=== PATIENT | female | born 1970 | race Caucasian/White ===

== ENCOUNTER 2018-03-23 17:56 | Emergency (ER) | payer OTHER ==
[2018-03-23 19:43] LABS: #Basophils 0.1 thou/uL (0.0-0.2); #Eosinphils 0.3 thou/uL (0.0-0.7); #Lymphocytes 2.6 thou/uL (1.20-3.40); #Monocytes 0.6 thou/uL (0.11-0.59); #Neutrophils 5.4 thou/uL (1.40-6.50); %Basophils 0.7 % (0.0-1.0); %Eosinophils 3.6 % (0.0-10.0); %Lymphocytes 28.8 % (21.0-51.0); %Monocytes 6.7 % (0.0-10.0); %Neutrophils 60.2 % (42.0-75.0); Hemoglobin 11.2 g/dL (12.0-16.0); Mean Corpuscular HGB CONC 33.2 g/dL (32.0-36.0); Mean Corpuscular Hemoglobin 29.8 pg (27.0-31.0); Mean Corpuscular Volume 89.8 fL (78.0-98.0); Mean Platelet Volume 9.6 fL (7.4-10.4); Platelet Count 176 thou/uL (130-400); RBC Distribution Width 11.1 % (11.5-14.5); Red Blood Cell (RBC) Count 3.77 mill/uL (4.20-5.40)
[2018-03-23 20:05] LABS: ALT (SGPT) 17 U/L (8-55); AST (SGOT) 18 U/L (5-34); Albumin 3.6 g/dL (3.5-5.0); Alkaline Phosphatase 88 U/L (40-150); Anion Gap 9 mmol/L (10-20); BUN (Urea Nitrogen) 20 mg/dL (7.0-18.7); Bilirubin, Total 0.4 mg/dL (0.2-1.2); CK (CPK) 99 U/L (29-168); Calc. Creatinine Clearance 0 mL/min (70-130); Calcium 8.8 mg/dL (7.8-10.44); Carbon Dioxide 26 mmol/L (22-29); Chloride 106 mmol/L (98-107); Estimated GFR-MDRD 59; Glucose 108 mg/dL (70-105); Potassium 3.8 mmol/L (3.5-5.1); Protein, Total 6.6 g/dL (6.0-8.3); Sodium 137 mmol/L (136-145)
[2018-03-23 20:10] LABS: CKMB 1.8 ng/mL (0-6.6); Troponin I Less than 0.010 ng/mL (< 0.028)
[2018-03-23] MEDS ORDERED: Ondansetron HCl/PF 4 MG/2 ML Vial ONE (21:08)
--- NOTE | 2018-03-23 21:11 | ULT ---
ULTRASOUND WITH DOPPLER DUPLEX VENOUS LOWER EXTREMITY RIGHT: 03/23/18, 8:41 p.m. HISTORY: 47-year-old female with right lower extremity pain, edema, and erythema. TECHNIQUE: Color flow Doppler, spectral waveform analysis of pulsed Doppler, and wilson-scale imaging with nanda saundra and augmentation, were used to evaluate the right common femoral, femoral, popliteal, posterior tibial, and superficial femoral, veins; and the proximal portions of the profunda femoral and greater saphenous, veins. FINDINGS: There is normal compressibility, demonstration of blood flow by color Doppler and pulsed Doppler, and response to augmentation, in all interrogated veins. There is edema in the soft tissues of the right calf. There are enlarged lymph nodes in the right groin. IMPRESSION: 1. No deep vein thrombosis in the right lower extremity. 2. Soft tissue edema of the right leg. 3. Right groin lymphadenopathy. zana wills POS: JAYDA
[2018-03-23] MEDS ORDERED: Metoprolol Tartrate 25 MG TAB ONE (21:51)
== END 2018-03-23 23:09 | disposition home or self-care (01) ==
LOC: ERS 17:56
DX: M79.604 Pain in right leg (principal); I25.2 Old myocardial infarction; E11.9 Type 2 diabetes mellitus without complications; E78.5 Hyperlipidemia, unspecified; I10 Essential (primary) hypertension; Z86.73 Personal history of transient ischemic attack (TIA), and cerebral infarction without residual deficits; F41.9 Anxiety disorder, unspecified; F31.9 Bipolar disorder, unspecified; Z79.899 Other long term (current) drug therapy; Z79.82 Long term (current) use of aspirin
CPT/HCPCS: 36415; 80053; 82553; 84484; 85025; 94760; J2405

== ENCOUNTER 2018-04-04 16:39 | Inpatient (IN) | payer OTHER ==
[2018-04-04] MEDS ORDERED: Dextrose 5% in Water 1,000 ML IV PRN (19:10)
[2018-04-04] MEDS ORDERED: Insulin Regular 300 UNITS/3 ML VIAL SC PRN ×2 (19:10)
[2018-04-04] MEDS ORDERED: Dextrose 50% Abboject 50 ML SYRINGE SLOW IVP PRN (19:10)
[2018-04-04] MEDS ORDERED: hydrALAZINE 20 MG/ML VIAL SLOW IVP PRN (19:10)
[2018-04-04] MEDS ORDERED: Senokot 8.6 MG TAB PO PRN (19:16)
[2018-04-04] MEDS ORDERED: Acetaminophen 325 MG TAB PO PRN (19:16)
--- NOTE | 2018-04-04 19:26 | HP ---
DATE OF ADMISSION: 04/04/2018 PRIMARY CARE PHYSICIAN: Dr. Zarate. CHIEF COMPLAINT: Right foot pain and swelling of 1 week duration. HISTORY OF PRESENT ILLNESS: Patient is a 47-year-old white female with diabetes mellitus type 2, hyp ertension, diabetic neuropathy and left foot diabetic ulcer, status post amputation of the second toe presented to the emergency room with above complaints. She initially presented to [facility] and was transferred to this facility for hospital admission. Approximately 10 days ago, patient had blunt injury to the great toe of the right foot. Since then s he noticed some swelling and pain. Her symptoms got worse over the last week. She also noticed incr eased drainage from the great toe. A second toe was also swollen and painful. No fever or chills re ported. The drainage was serosanguineous and very small amount. The pain was moderate to severe in intensity, aggravated by movement and walking. In the [facility], her vital signs showed temperature 97.8, respirations 16, pulse o f 65 with a blood pressure 159/69 with O2 saturation 99% on room air. She received vancomycin, cefep eric, morphine and blood cultures were drawn. X-ray of the right foot showed changes consistent with osteomyelitis in the distal right second toe without any fractures or dislocation. PAST MEDICAL HISTORY: 1. Diabetes mellitus type 2. 2. Hypertension. 3. Diabetic neuropathy. 4. History of diabetic foot ulcer, status post amputation of the second toe of the left foot. 5. Coronary artery disease, status post stent placement, currently on aspirin and Plavix. 6. History of cerebrovascular without significant residual deficit. 7. Dyslipidemia. PAST SURGICAL HISTORY: 1. Coronary stent placement in 2002. 2. Gastric bypass in 2004. 3. Laparoscopic cholecystectomy. 4. Left second toe amputation in 2016. 5. x2. 6. Retinal detachment repair. ALLERGIES: PENICILLIN and PHENERGAN. CURRENT HOME MEDICATIONS: Patient does not remember any of her home medications. She takes aspirin and Plavix every day. She is currently off insulin per patient report. She is unable to recall any other medication. SOCIAL HISTORY: She currently lives at home with her family. No current use of tobacco, alcohol or drug use. FAMILY HISTORY: Positive for premature coronary artery disease. Hypertension and diabetes runs in h er family. REVIEW OF SYSTEMS: The following complete review of systems was negative, unless otherwise mentioned in the HPI or below: Constitutional: Weight loss or gain, ability to conduct usual activities. Skin: Rash, itching. Eyes: Double vision, pain. ENT/Mouth: Nose bleeding, neck stiffness, pain, tenderness. Cardiovascular: Palpitations, dyspnea on exertion, orthopnea. Respiratory: Shortness of breath, wheezing, cough, hemoptysis, fever or night sweats. Gastrointestinal: Poor appetite, abdominal pain, heartburn, nausea, vomiting, constipation, or diarr hea. Genitourinary: Urgency, frequency, dysuria, nocturia. Musculoskeletal: Pain, swelling. Neurologic/Psychiatric: Anxiety, depression. Allergy/Immunologic: Skin rash, bleeding tendency. PHYSICAL EXAMINATION: VITAL SIGNS: As discussed above. GENERAL: A 47-year-old female in mild distress due to pain in the right foot. HEENT: Atraumatic, normocephalic. Sclerae are anicteric. Moist mucous membrane, no oral lesion. NECK: Supple, no JVD appreciated. No carotid bruit. LUNGS: Clear to auscultation bilaterally. HEART: S1 and S2 present. Regular rate and rhythm. No murmur, rubs, or gallops appreciated. ABDOMEN: Soft, bowel sounds present. EXTREMITIES: There is significant swelling of the first and second toe of the right foot. There wer e some chronic ulcerative changes seen mainly on the great toe of the right foot. There was minimal serosanguineous drainage noted. There was tenderness on palpation. There was also significant eryth kosta surrounding the ulceration. NEUROLOGIC: Grossly nonfocal, moves all four extremities. PSYCHIATRIC: Alert, awake, oriented x3. SKIN: Warm and dry other findings as discussed above. PERIPHERAL VASCULAR: Radial pulses palpable bilaterally. LYMPH NODES: No palpable lymph nodes in the neck, or groin. LABORATORY DATA AND IMAGING DATA: 1. CBC showed WBC 7.9 with hemoglobin 10.4, hematocrit 31.8, platelet of 250. Chemistries showed so dium 137, potassium 4.2, chloride 104, bicarbonate 24, BUN 14, creatinine 0.9, lactic acid was 1.2. 2. ESR was 56. 3. X-ray of the right foot by my review as discussed above. 4. Telemetry monitoring by my review showed sinus rhythm. IMPRESSION: 1. Right foot infected diabetic ulcer with cellulitis, rule out osteomyelitis. 2. Diabetes mellitus type 2. 3. Hypertension. 4. Coronary artery disease, status post stent placement. 5. Diabetic neuropathy. 6. History of cerebrovascular accident. 7. Hyperlipidemia 8. PENICILLIN allergy. PLAN: 1. The patient will be monitored on the medical floor. General Surgery and Infectious Disease will be consulted. We will continue vancomycin and cefepime. We will start on insulin sliding scale. We will confirm her home medications. We will keep her n.p.o. past midnight for possible surgical inte rvention. Blood cultures have been sent. We will continue aspirin and Plavix for now. 2. Plan of care was discussed with the patient in detail. She stated understanding. The patient will require 2-3 days for stabilization.
[2018-04-04 20:04] VITALS: BMI 28.6
[2018-04-04] MEDS ORDERED: Heparin 5,000 UNITS/ML VIAL SC SCH (21:00)
[2018-04-04] MEDS: Sodium Chloride 0.9% 1,000 ML IV SCH (21:09)
[2018-04-04] MEDS: Docusate 100 MG CAP PO SCH (21:09)
[2018-04-04] MEDS: Vancomycin HCl 1 GM in Premix Bag 1 BAG IVPB SCH (23:08)
[2018-04-05 04:38] LABS: #Eosinphils 0.4 thou/uL (0.0-0.7); #Lymphocytes 1.6 thou/uL (1.20-3.40); #Monocytes 0.5 thou/uL (0.11-0.59); #Neutrophils 4.9 thou/uL (1.40-6.50); %Basophils 0.6 % (0.0-1.0); %Eosinophils 5.1 % (0.0-10.0); %Monocytes 6.2 % (0.0-10.0); Hemoglobin 9.6 g/dL (12.0-16.0); Mean Corpuscular HGB CONC 34.1 g/dL (32.0-36.0); Mean Corpuscular Hemoglobin 30.5 pg (27.0-31.0); Mean Corpuscular Volume 89.5 fL (78.0-98.0); Mean Platelet Volume 9.7 fL (7.4-10.4); Platelet Count 255 thou/uL (130-400); RBC Distribution Width 10.7 % (11.5-14.5); Red Blood Cell (RBC) Count 3.15 mill/uL (4.20-5.40); White Blood Cell (WBC) Count 7.4 thou/uL (4.8-10.8)
[2018-04-05 05:00] LABS: Anion Gap 7 mmol/L (10-20); BUN (Urea Nitrogen) 11 mg/dL (7.0-18.7); Calc. Creatinine Clearance 103 mL/min (70-130); Calcium 8.4 mg/dL (7.8-10.44); Carbon Dioxide 29 mmol/L (22-29); Chloride 104 mmol/L (98-107); Estimated GFR-MDRD 78; Glucose 135 mg/dL (70-105); Potassium 4.4 mmol/L (3.5-5.1); Sodium 136 mmol/L (136-145)
[2018-04-05] MEDS ORDERED: Gadobenate Dimeglumine 529 MG/1 ML (20ML VIAL) ONE (08:25)
[2018-04-05] MEDS: Aspirin 81 mg Enteric Coated Tablet PO SCH ×2 (08:34→08:51)
[2018-04-05] MEDS: Clopidogrel Bisulfate 75 MG TAB PO SCH (08:34)
[2018-04-05] MEDS: Docusate 100 MG CAP PO SCH ×2 (08:34→20:04)
[2018-04-05] MEDS: Vancomycin HCl 1 GM in Premix Bag 1 BAG IVPB SCH ×2 (08:35→21:19)
[2018-04-05] MEDS: Amlodipine 5 MG TAB PO SCH ×2 (08:37→20:04)
[2018-04-05] MEDS: Lisinopril 10 MG TAB PO SCH ×2 (08:37→20:04)
[2018-04-05] MEDS: Metoprolol Tartrate 25 MG TAB PO SCH ×2 (08:37→20:04)
[2018-04-05] MEDS: busPIRone HCl 10 MG TAB PO SCH (08:37)
[2018-04-05] MEDS ORDERED: PAROXETINE HCL 37.5 MG PO SCH ×2 (09:00)
--- NOTE | 2018-04-05 14:09 | MRI ---
MRI RIGHT LOWER EXTREMITY WITH AND WITHOUT CONTRAST: Date: 04/05/18 HISTORY: Evaluate for osteomyelitis. COMPARISON: Radiograph from 04/04/18. FINDINGS: Bones: On the T1-weighted image sequence, there is loss of normal marrow signal in distal phalanx of the gre at toe indicative of active osteomyelitis. There is associated reactive edema in distal phalanx. Midd le phalanx marrow signal is normal. No other abnormal areas of loss of T1 signal. Tendons: No significant infectious tenosynovitis. Soft Tissues: No abscess. There is a sinus tract in the skin plantar surface to the distal phalanx tuft great toe. IMPRESSION: Osteomyelitis distal phalanx great toe. POS: ANGE
[2018-04-05] MEDS: Sodium Chloride 0.9% 1,000 ML IV SCH (16:14)
[2018-04-05 17:33] LABS: HIV (1/2) Antibody/Antigen Non-Reactive (NonReactive); HIV 1/2 INDEX 0.06 S/CO (<1.00); Hep C IgG Ab Non-Reactive (NonReactive); Hep C Index 0.12 S/CO (0-0.79)
--- NOTE | 2018-04-05 17:42 | HP ---
HISTORY OF PRESENT ILLNESS: Ileana De Leon is a 47-year-old female, who has had previous amputations of her left second toe distal to the proximal phalanx. She presents now with diet-controlled diabet es, admitted on the medical service. White count 7, hemoglobin 9.6, Accu-Cheks 124-247. She has com plaints of her right great toe. She has some distal plantar ulceration with eschar. She had plain x -rays that revealed a questionable lucency in the second toe, but chronic changes in the right great toe. After seeing her, she underwent an MRI demonstrating osteomyelitis of the distal great toe phal anx. She has swelling, induration, cellulitis of the right great toe. She has palpable posterior ti bial pulses. There is no history of tobacco use. I have recommend amputation of the right great toe through the proximal phalanx with healing by secondary intention. Her right second toe shows some d eformity, but there is no cellulitis and no radiological MRI evidence of osteomyelitis. ALLERGIES: PENICILLIN. SOCIAL HISTORY: Tobacco none. Alcohol: Socially. MEDICATIONS: At home, she takes paroxetine 37.5 mg a day, buspirone 10 mg at bedtime, multivitamins daily, ferrous sulfate, metoprolol 25 mg b.i.d., lisinopril daily, Plavix 75 mg a day, amlodipine 5 m g b.i.d., aspirin 81 mg a day. In the hospital, she has been given vancomycin, Levaquin and hydrocod one. Dr. Jimenez has been consulted. PAST SURGICAL HISTORY: Coronary stents; intensity after myocardial infarction; open Willian-en-Y gastri c bypass in 2004, in [place]; laparoscopic cholecystectomy, Dr. Young; left second toe amputation in 2016; x2; retinal surgery for detachment. She denies any cardiac symptomatology. FAMILY HISTORY: Significant for coronary artery disease, hypertension, diabetes. The patient lives at home with her family. PHYSICAL EXAMINATION: VITAL SIGNS: Height 5 feet 3 inches, weight 161 pounds, 28 BMI, temperature 98.5, pulse 64, respirat ory rate 18, blood pressure 174/76. HEENT: Unremarkable. LUNGS: Clear to auscultation. CARDIAC: Regular rate and rhythm without murmur or gallop. ABDOMEN: Soft, nontender. Midline upper scar consistent with prior open gastric bypass. Incisional hernia defect about 4 cm in diameter, upper abdomen, midline. Her hernia protrudes on Valsalva. EXTREMITIES: Palpable femoral, popliteal pulses, posterior tibial pulse. Left foot, amputation of t he distal second toe well healed. Right great toe deformity, cellulitis, callus over the distal thir d of her great toe, plantar ulceration with eschar, edema and cellulitis. Probing of the eschar reve als it extends deep. Right second toe reveals some deformity of the tip, but no obvious signs of inf ection and no open wounds. NEUROLOGIC: Cranial nerves intact. LYMPHATICS: No lymphadenopathy in groins, axilla, neck. LABORATORY DATA: Sodium 136, potassium 3.7, BUN 11, creatinine 0.8, GFR 78. Last hemoglobin A1c on 10/30/2017 was 6.3. Liver function tests normal. White count 7, hemoglobin 9.6. ASSESSMENT AND PLAN: 1. Anemia. 2. History of morbid obesity and laparoscopic sleeve gastrectomy in [place]. 3. Coronary artery disease, coronary stent. 4. History of diabetes, diet controlled. Does not take any medications for this. 5. Incisional hernia, upper abdomen from an open Willian-en-Y gastric bypass. This is painful to her. 6. Diabetic right great toe infection with open wound eschar and osteomyelitis of distal phalanx. Winnie resendiz would recommend amputation of the distal right great toe and healing by secondary intention with dia mcgill home on oral antibiotics. 7. Diabetes mellitus. Management per medical. Check hemoglobin A1c in the morning.
--- NOTE | 2018-04-05 18:20 | PDOC.PN ---
- Subjective Encounter Start Date: 04/05/18 Encounter Start Time: 12:00 Patient seen and examined for diabetic foot ulcer with Osteomyelitis. No new complaints. Pain controlled. No fever/chills. No overnight events - Objective Resuscitation Status: Resuscitation Status FULL:Full Resuscitation MAR Reviewed: Yes Vital Signs & Weight: Vital Signs (12 hours) Temp Pulse Resp BP BP Pulse Ox 04/05/18 17:44 98.7 F 94 16 183/74 H 96 04/05/18 11:44 98.5 F 64 18 174/76 H 91 L 04/05/18 08:37 74 179/78 H 04/05/18 08:00 91 L 04/05/18 07:16 99.1 F 74 18 179/78 H 91 L Weight Weight 161 lb 14.4 oz I&O: 04/04/18 04/05/18 04/06/18 06:59 06:59 06:59 Intake Total 1498 Balance 1498 Result Diagrams: 04/05/18 03:55 04/05/18 03:55 Additional Labs: Accuchecks 04/05/18 04/05/18 04/05/18 17:03 11:00 05:53 POC Glucose 154 H 161 H 124 H 04/04/18 19:49 POC Glucose 247 H Radiology Reviewed by me: Yes (MRI - Great toe Osteo.) Phys Exam - Physical Examination Constitutional: NAD Respiratory: no wheezing, no rhonchi Cardiovascular: RRR, no rub Gastrointestinal: soft, non-tender, positive bowel sounds Musculoskeletal: no edema Improving erythema of foot Neurological: moves all 4 limbs Dx/Plan - Plan DVT proph w/lovenox, DVT proph w/SCDs IMPRESSION: 1. Right foot infected diabetic ulcer with cellulitis with osteomyelitis. 2. Diabetes mellitus type 2. 3. Hypertension. 4. Coronary artery disease, status post stent placement. 5. Diabetic neuropathy. 6. History of cerebrovascular accident. 7. Hyperlipidemia 8. PENICILLIN allergy. PLAN: Cont Vancomycin and Levaquin Monitor Vancomycin level Cont current meds as below AM labs A1c in AM Consult Wound care Review of Systems - Review of Systems Respiratory: negative: Cough, Dry, Shortness of Breath, Hemoptysis, SOB with Excertion, Pleuritic Pain, Sputum, Wheezing Cardiovascular: negative: chest pain, palpitations, orthopnea, paroxysmal nocturnal dyspnea, edema, light headedness, other - Medications/Allergies Allergies/Adverse Reactions: Allergies Allergy/AdvReac Type Severity Reaction Status Date / Time Penicillins Allergy Severe Anaphylaxis Verified 04/04/18 22:03 Medications: Current Medications Acetaminophen (Tylenol) 650 mg PO Q4H PRN PRN Reason: Headache/Fever or Pain Hydrocodone Bitart/Acetaminophen ([place] 5/325) 1 tab PO Q4H PRN PRN Reason: Moderate Pain (4-6) Amlodipine Besylate (Norvasc) 5 mg PO BID [facility] Last Admin: 04/05/18 08:37 Dose: 5 mg Aspirin (Ecotrin) 81 mg PO DAILY [facility] Last Admin: 04/05/18 08:51 Dose: Not Given Buspirone HCl (Buspar) 10 mg PO DAILY [facility] Last Admin: 04/05/18 08:37 Dose: 10 mg Clopidogrel Bisulfate (Plavix) 75 mg PO DAILY [facility] Last Admin: 04/05/18 08:34 Dose: 75 mg Dextrose/Water (Dextrose 50%) 25 gm SLOW IVP PRN PRN PRN Reason: Hypoglycemia Docusate Sodium (Colace) 100 mg PO BID [facility] Last Admin: 04/05/18 08:34 Dose: 100 mg Enoxaparin Sodium (Lovenox) 40 mg SC 2100 [facility] Glucagon (Glucagon) 1 mg IM PRN PRN PRN Reason: Hypoglycemia Hydralazine HCl (Apresoline) 10 mg SLOW IVP Q4H PRN PRN Reason: SBP Greater Than 180 Sodium Chloride (Normal Saline 0.9%) 1,000 mls @ 75 mls/hr IV .[id number] [facility] Last Admin: 04/05/18 16:14 Dose: 1,000 mls Vancomycin HCl 1 gm/ Device 200 mls @ 200 mls/hr IVPB BID [facility] Last Admin: 04/05/18 08:35 Dose: 200 mls Dextrose/Water (D5w) 1,000 mls @ 0 mls/hr IV .Q0M PRN PRN Reason: Hypoglycemia Levofloxacin 500 mg/ Device 100 mls @ 100 mls/hr IVPB Q24HR [facility] Last Admin: 04/04/18 21:09 Dose: 100 mls Sodium Chloride (Normal Saline 0.9%) 1,000 mls @ 100 mls/hr IV .Q10H [facility] Insulin Human Regular (Humulin R) 0 units SC .MILD SLIDING SCALE PRN PRN Reason: Mild Correctional Scale Insulin Human Regular (Humulin R) 0 units SC .BEDTIME SLIDING SC PRN PRN Reason: Bedtime Correctional Scale Lisinopril (Zestril) 10 mg PO BID [facility] Last Admin: 04/05/18 08:37 Dose: 10 mg Metoprolol Tartrate (Lopressor) 25 mg PO BID [facility] Last Admin: 04/05/18 08:37 Dose: 25 mg Miscellaneous Medication (Pharmacy To Dose) 1 each IVPB PRN PRN PRN Reason: . Morphine Sulfate (Morphine) 2 mg SLOW IVP Q6H PRN PRN Reason: Pain Stop: 04/07/18 19:11 [Paroxetine Hcl Cr] (37.5 Mg) 0 each PO DAILY [facility] Senna (Senokot) 2 tab PO HSPRN PRN PRN Reason: Constipation
[2018-04-05] MEDS: Enoxaparin Sodium 40 MG/0.4 ML SYRINGE SC SCH (20:05)
--- NOTE | 2018-04-06 01:09 | CON ---
DATE OF CONSULTATION: 04/05/2018 REASON FOR CONSULTATION: Right foot ulcer with inflammatory changes. HISTORY OF PRESENT ILLNESS: A 47-year-old with a history of type 2 diabetes, hypertension, neuropathy, prior CVA, coronary artery disease, who developed worsening pain in the right first toe with swelling and chronic ulcer at the bottom aspect of the first toe distal phalanx skin area. The patient went to [facility], transferred to [facility] for management. The patient apparently had some injury to the great toe in the recent past which led to the current findings. Some drainage was associated with it. No headaches. She has some blurred vision which she ascribes to a fall that she sustained in the past few weeks. No sore throat, odynophagia, dysphagia, no toothache, no back pain, no dyspnea or chest pain. No abdominal pain, no diarrhea, no genitourinary symptoms. PAST MEDICAL HISTORY: Type 2 diabetes, hypertension, neuropathy, prior CVA with no residual, coronary artery disease with stenting, dyslipidemia. PAST SURGICAL HISTORY: Includes coronary artery stenting, gastric bypass surgery, laparoscopic cholecystectomy, left second toe amputations in 2016, C- section, retinal detachment repair. ALLERGIES: PENICILLIN and PHENERGAN with a rash. CURRENT MEDICATIONS: Tylenol, [place], Norvasc, Ecotrin, BuSpar, Plavix, dextrose , Colace, glucagon, insulin, levofloxacin, metoprolol, and vancomycin. SOCIAL HISTORY: Never a smoker. FAMILY HISTORY: Diabetes, hypertension, coronary artery disease. PHYSICAL EXAMINATION: VITAL SIGNS: T-max 99.1, blood pressure 170/76, pulse 64. SKIN: Shows the area of round ulceration about 2 cm. The center of the ulceration is more like 1 cm. There is a beefy red outer rim of the ulceration at the center has a reddish dark red scab. She also has callus formation around this, suggestive of a chronic area of pressure ulceration associated with neuropathy. She also has some much shallower areas of ulceration with hyperkeratosis in the 2nd, 3rd, and 4th digits right hand. The dorsal aspect of the right first toe was swollen. There is erythema associated with it. At the margin between the right first toe proximal phalanx skin and the metatarsal skin, there is an area of erythema, tenderness, and what appears to be a yellowish discoloration under the skin. She has a peripheral IV access. No Rawls catheter. No lymphadenopathy. HEENT: Ocular movements conjugate. Sclerae white. Pupils are equal and reactive. Oral cavity with a few missing teeth. Remainder ones with quite a bit of decay. Oral mucosa is normal. NECK: Supple, without jugular venous distention, no carotid bruits, no thyromegaly. LUNGS: With symmetric air entry. ABDOMEN: Soft, not distended or tender. No ascites. No bladder distention. EXTREMITIES: Pulses are 2+ in popliteal and dorsalis pedis. Cap refill is normal. LABORATORY DATA AND IMAGING: White cell count 7.4, hemoglobin 9.6, platelets 255. Sodium 136, creatinine 0.8. She had a hypercoagulability workup in the past which was normal and the patient has lower extremity MRI completed this morning and it showed a loss of normal marrow signal distal phalanx of the great toe indicative of active osteomyelitis associated reactive edema in the distal phalanx, no abscess. ASSESSMENT AND DISCUSSION: Type 2 diabetes with neuropathy, good vascular status and evidence of osteomyelitis of the right first toe distal phalanx. The bone structure seems to be intact on x-rays. The patient is going to have surgical debridement and depending on the findings, then may need amputation of distal phalanx or not. She has good vascular supply and if the surgical exploration does not show overt penetration into the phalanx, then one could conceivably treat conservatively with antimicrobial therapy, administered for a protracted period of time. This could be either intravenous or oral combination therapy depending on the organism isolated from the cultures. Evidently, the samples will be submitted during the surgical procedure. We will check hepatitis C serology and HIV serology. [facility]ERN[facility]
[2018-04-06 04:17] LABS: Hemoglobin A1c 6.4 % (4.0-6.0)
[2018-04-06 04:31] LABS: Anion Gap 12 mmol/L (10-20); BUN (Urea Nitrogen) 12 mg/dL (7.0-18.7); Calc. Creatinine Clearance 95 mL/min (70-130); Calcium 8.8 mg/dL (7.8-10.44); Carbon Dioxide 27 mmol/L (22-29); Chloride 103 mmol/L (98-107); Estimated GFR-MDRD 70; Glucose 144 mg/dL (70-105); Sodium 138 mmol/L (136-145)
[2018-04-06] MEDS: Metoprolol Tartrate 25 MG TAB PO SCH ×2 (05:28→20:01)
[2018-04-06] MEDS: Sodium Chloride 0.9% 1,000 ML IV SCH ×2 (05:32→18:15)
[2018-04-06 08:26] LABS: Vancomycin, Trough 20.5 ug/mL
[2018-04-06] MEDS ORDERED: Midazolam HCl 2 mg/2 ml Vial ONE (08:47)
[2018-04-06] MEDS ORDERED: Fentanyl 100 MCG/2 ML VIAL ONE (08:47)
[2018-04-06] MEDS ORDERED: Promethazine HCl 25 MG/ML VIAL SLOW IVP PRN (08:51)
[2018-04-06] MEDS ORDERED: Ondansetron HCl/PF 4 MG/2 ML Vial IVP PRN (08:51)
[2018-04-06] MEDS ORDERED: Promethazine HCl 25 MG/ML VIAL IM PRN (08:51)
[2018-04-06] MEDS ORDERED: Vancomycin HCl 750 MG in Sodium Chloride 0.9% 250 ML 250 ML IVPB SCH (10:00)
--- NOTE | 2018-04-06 10:30 | OP ---
DATE OF PROCEDURE: 04/06/2018 PREOPERATIVE DIAGNOSES: Diabetic infection, right great toe with osteomyelitis of distal phalanx. PROCEDURE: Amputation of the right great toe through the proximal phalanx. Wound left open to heal by secondary intention. Note; excellent blood supply, pulsatile requiring cautery. SURGEON: Dr. Kvng Junior ANESTHESIA: Ankle block/TIVA. PROCEDURE IN DETAIL: The patient was taken to the operating room where under intravenous sedation an d ankle block, right lower extremity was prepared with ChloraPrep, draped in routine fashion. Incisi on made for a fishmouth incision for amputation of the right great toe through the proximal phalanx, carried down the skin and subcutaneous tissue and phalanx transected with a bone cutter, resected pro ximally with rongeurs. Connective tissue debrided sharply. Hemostasis gained with the cautery. The re was pulsatile bleeding in digital vessels controlled with cautery. Wound irrigated, saline wet to dry dressing applied. The patient tolerated the procedure well.
[2018-04-06] MEDS: Amlodipine 5 MG TAB PO SCH ×2 (12:37→20:01)
[2018-04-06] MEDS: Aspirin 81 mg Enteric Coated Tablet PO SCH (12:37)
[2018-04-06] MEDS: busPIRone HCl 10 MG TAB PO SCH (12:38)
[2018-04-06] MEDS: Lisinopril 10 MG TAB PO SCH ×2 (12:39→20:01)
[2018-04-06] MEDS: Clopidogrel Bisulfate 75 MG TAB PO SCH (12:39)
[2018-04-06] MEDS: Docusate 100 MG CAP PO SCH ×2 (12:39→20:02)
[2018-04-06] MEDS: PARoxetine CR 12.5 MG TAB PO SCH (15:43)
[2018-04-06] MEDS: HYDROcodone/Acetaminophen 5/325 mg Tablet PO PRN ×2 (18:14→22:26)
[2018-04-06] MEDS: Enoxaparin Sodium 40 MG/0.4 ML SYRINGE SC SCH (20:02)
--- NOTE | 2018-04-06 21:04 | PDOC.PN ---
- Subjective Encounter Start Date: 04/06/18 Encounter Start Time: 14:30 Patient seen and examined for Osteomyelitis. Pain controlled. No fever/chills. No new complaints. No overnight events - Objective Resuscitation Status: Resuscitation Status FULL:Full Resuscitation MAR Reviewed: Yes Vital Signs & Weight: Vital Signs (12 hours) Temp Pulse Resp BP BP Pulse Ox 04/06/18 20:12 98.2 F 60 18 172/92 H 93 L 04/06/18 20:01 59 L 172/92 H 04/06/18 16:55 98.4 F 58 L 16 176/94 H 95 04/06/18 12:39 167/82 H 04/06/18 12:37 62 167/82 H 04/06/18 11:40 98.0 F 54 L 18 168/81 H 96 Weight Admit Weight 161 lb 14.4 oz Weight 161 lb 14.4 oz I&O: 04/05/18 04/06/18 04/07/18 06:59 06:59 06:59 Intake Total 1498 2413 1280 Balance 1498 2413 1280 Result Diagrams: 04/07/18 04:05 04/06/18 03:43 Additional Labs: Accuchecks 04/06/18 04/06/18 04/06/18 15:54 10:57 04:49 POC Glucose 144 H 175 H 146 H Phys Exam - Physical Examination Constitutional: NAD Respiratory: no wheezing, no rhonchi Cardiovascular: RRR, no rub Gastrointestinal: soft, non-tender, positive bowel sounds Musculoskeletal: no edema foot dressing + Neurological: moves all 4 limbs Dx/Plan - Plan DVT proph w/lovenox, DVT proph w/SCDs IMPRESSION: 1. Right foot infected diabetic ulcer with cellulitis with osteomyelitis. s/p Rt great toe amputation 2. Diabetes mellitus type 2. 3. Hypertension. 4. Coronary artery disease, status post stent placement.- on ASA/Plavix 5. Diabetic neuropathy. 6. History of cerebrovascular accident. 7. Hyperlipidemia 8. PENICILLIN allergy. PLAN: Cont current Atbx - Vancomycin and Levaquin - Monitor Vancomycin level Cont Wound care Change Atbx to PO at dc Cont other meds as below AM labs Review of Systems - Review of Systems Respiratory: negative: Cough, Dry, Shortness of Breath, Hemoptysis, SOB with Excertion, Pleuritic Pain, Sputum, Wheezing Cardiovascular: negative: chest pain, palpitations, orthopnea, paroxysmal nocturnal dyspnea, edema, light headedness, other - Medications/Allergies Allergies/Adverse Reactions: Allergies Allergy/AdvReac Type Severity Reaction Status Date / Time Penicillins Allergy Severe Anaphylaxis Verified 04/04/18 22:03 Medications: Current Medications Acetaminophen (Tylenol) 650 mg PO Q4H PRN PRN Reason: Headache/Fever or Pain Hydrocodone Bitart/Acetaminophen ([place] 5/325) 1 tab PO Q4H PRN PRN Reason: Moderate Pain (4-6) Last Admin: 04/06/18 18:14 Dose: 1 tab Amlodipine Besylate (Norvasc) 5 mg PO BID [facility] Last Admin: 04/06/18 20:01 Dose: 5 mg Aspirin (Ecotrin) 81 mg PO DAILY [facility] Last Admin: 04/06/18 12:37 Dose: Not Given Buspirone HCl (Buspar) 10 mg PO DAILY [facility] Last Admin: 04/06/18 12:38 Dose: 10 mg Clopidogrel Bisulfate (Plavix) 75 mg PO DAILY [facility] Last Admin: 04/06/18 12:39 Dose: Not Given Dextrose/Water (Dextrose 50%) 25 gm SLOW IVP PRN PRN PRN Reason: Hypoglycemia Docusate Sodium (Colace) 100 mg PO BID [facility] Last Admin: 04/06/18 20:02 Dose: 100 mg Enoxaparin Sodium (Lovenox) 40 mg SC 2100 [facility] Last Admin: 04/06/18 20:02 Dose: 40 mg Glucagon (Glucagon) 1 mg IM PRN PRN PRN Reason: Hypoglycemia Hydralazine HCl (Apresoline) 10 mg SLOW IVP Q4H PRN PRN Reason: SBP Greater Than 180 Dextrose/Water (D5w) 1,000 mls @ 0 mls/hr IV .Q0M PRN PRN Reason: Hypoglycemia Levofloxacin 500 mg/ Device 100 mls @ 100 mls/hr IVPB Q24HR [facility] Last Admin: 04/06/18 19:58 Dose: 100 mls Sodium Chloride (Normal Saline 0.9%) 1,000 mls @ 100 mls/hr IV .Q10H [facility] Last Admin: 04/06/18 18:15 Dose: 1,000 mls Vancomycin HCl 750 mg/ Sodium (Chloride) 250 mls @ 250 mls/hr IVPB 1000,2200 [facility] Insulin Human Regular (Humulin R) 0 units SC .MILD SLIDING SCALE PRN PRN Reason: Mild Correctional Scale Insulin Human Regular (Humulin R) 0 units SC .BEDTIME SLIDING SC PRN PRN Reason: Bedtime Correctional Scale Lisinopril (Zestril) 10 mg PO BID [facility] Last Admin: 04/06/18 20:01 Dose: 10 mg Metoprolol Tartrate (Lopressor) 25 mg PO BID [facility] Last Admin: 04/06/18 20:01 Dose: 25 mg Miscellaneous Medication (Pharmacy To Dose) 1 each IVPB PRN PRN PRN Reason: . Morphine Sulfate (Morphine) 2 mg SLOW IVP Q6H PRN PRN Reason: Pain Stop: 04/07/18 19:11 Paroxetine HCl (Paxil Cr) 37.5 mg PO DAILY [facility] Last Admin: 04/06/18 15:43 Dose: 37.5 mg Senna (Senokot) 2 tab PO HSPRN PRN PRN Reason: Constipation Sodium Chloride (Flush - Normal Saline) 10 ml IVF Q12HR [facility] Last Admin: 04/06/18 12:40 Dose: 10 ml Sodium Chloride (Flush - Normal Saline) 10 ml IVF PRN PRN PRN Reason: Saline Flush
[2018-04-06] MEDS: Vancomycin HCl 750 MG in Sodium Chloride 0.9% 250 ML 250 ML IVPB SCH (21:45)
[2018-04-07] MEDS: HYDROcodone/Acetaminophen 5/325 mg Tablet PO PRN ×2 (05:04→09:03)
[2018-04-07] MEDS: busPIRone HCl 10 MG TAB PO SCH (08:54)
[2018-04-07] MEDS: Docusate 100 MG CAP PO SCH (08:54)
[2018-04-07] MEDS: Vancomycin HCl 750 MG in Sodium Chloride 0.9% 250 ML 250 ML IVPB SCH (08:54)
[2018-04-07] MEDS: Aspirin 81 mg Enteric Coated Tablet PO SCH (08:55)
[2018-04-07] MEDS: Lisinopril 10 MG TAB PO SCH (08:55)
[2018-04-07] MEDS: Amlodipine 5 MG TAB PO SCH (08:55)
[2018-04-07] MEDS: Metoprolol Tartrate 25 MG TAB PO SCH (08:55)
[2018-04-07] MEDS: Clopidogrel Bisulfate 75 MG TAB PO SCH (08:55)
[2018-04-07] MEDS: PARoxetine CR 12.5 MG TAB PO SCH (09:00)
[2018-04-07] MEDS ORDERED: Sodium Chloride 0.9% 1,000 ML IV SCH (09:08)
[2018-04-07 16:21] VITALS: TEMP 98.5
[2018-04-07 16:41] VITALS: BP 169/86
--- NOTE | 2018-04-07 19:16 | DIS ---
DATE OF DISCHARGE: 04/07/2018 DISCHARGE DISPOSITION: Home. FOLLOWUP: Follow up with primary care physician, Dr. Zarate in 1 week. Follow up with Infectiou s Disease, Dr. Jimenez. Follow up with Dr. Junior on 04/12/2018 at 1:50 p.m. DISCHARGE MEDICATIONS: Minocycline 100 mg twice a day for 1 week, Tylenol No. 3 as needed. All othe r home medications were left unchanged. BRIEF HOSPITAL COURSE: Patient is a 47-year-old female with diabetes mellitus type 2, hypertension, and diabetic neuropathy, who presented to the hospital with right foot pain and swelling of 1 week du ration. Please refer to the history and physical dated 04/04/2018 for further details. The patient was admitted to the hospital with a diagnosis of right foot infected diabetic ulcer with cellulitis and possible osteomyelitis. She underwent lower extremity MRI that showed osteomyelitis o f the distal phalanx of the great toe. The patient was evaluated by Infectious Disease as well as Ge neral Surgery. She was placed on broad-spectrum antibiotics. Patient underwent amputation of the ri ght great toe through the proximal phalanx. The wound was left open to heal by secondary intention. She received wound care during the hospital stay. She will follow up with Dr. Junior as outpatient. Wound care teaching was provided. She has been afebrile and stated understanding with this plan of care. FINAL DIAGNOSES: 1. Right foot infected diabetic ulcer with cellulitis and osteomyelitis, status post right great toe amputation. 2. Diabetes mellitus type 2 with diabetic neuropathy. 3. Hypertension. 4. Coronary artery disease, status post stent placement. 5. History of cerebrovascular accident. 6. Hyperlipidemia 7. Penicillin allergy. 8. Chronic anemia. 9. Chronic kidney disease, stage 2. SIGNIFICANT LABORATORY DATA: 1. Hemoglobin A1c 6.4. 2. Human immunodeficiency virus testing negative. 3. Hepatitis C antibody negative. 4. Blood cultures negative. Plan of care was discussed with the patient in detail. She stated understanding.
--- NOTE | 2018-04-09 10:07 | EKG ---
Test Reason : Blood Pressure : / mmHG Vent. Rate : 059 BPM Atrial Rate : 059 BPM P-R Int : 208 ms QRS Dur : 080 ms QT Int : 488 ms P-R-T Axes : 012 -15 052 degrees QTc Int : 483 ms Sinus bradycardia Minimal voltage criteria for LVH, may be normal variant Prolonged QT Abnormal ECG When compared with ECG of 01-OCT-2016 21:00, QT has lengthened Confirmed by DR. Ileana DOE ([id number]) on 04/09/2018 10:07:03 AM Referred By: MARCIAL Confirmed By:DR. Ileana DOE
== END 2018-04-07 17:03 | disposition home or self-care (01) | DRG 617 ==
LOC: ERS 16:39 → T4-A 18:40
PROVIDERS: ADMIT Internal Medicine; ATTEND Internal Medicine
PROC: 0Y6P0Z0 Detachment at Right 1st Toe, Complete, Open Approach (ICD-10-PCS; principal; 2018-04-06)
DX: E11.69 Type 2 diabetes mellitus with other specified complication (principal); Z68.41 Body mass index [BMI] 40.0-44.9, adult; M86.8X7 Other osteomyelitis, ankle and foot; L03.115 Cellulitis of right lower limb; E11.621 Type 2 diabetes mellitus with foot ulcer; L97.519 Non-pressure chronic ulcer of other part of right foot with unspecified severity; E66.01 Morbid (severe) obesity due to excess calories; E11.40 Type 2 diabetes mellitus with diabetic neuropathy, unspecified; E78.5 Hyperlipidemia, unspecified; I25.10 Atherosclerotic heart disease of native coronary artery without angina pectoris; Z98.61 Coronary angioplasty status; Z86.73 Personal history of transient ischemic attack (TIA), and cerebral infarction without residual deficits; Z98.84 Bariatric surgery status; Z88.0 Allergy status to penicillin; E11.22 Type 2 diabetes mellitus with diabetic chronic kidney disease; I12.9 Hypertensive chronic kidney disease with stage 1 through stage 4 chronic kidney disease, or unspecified chronic kidney disease; N18.2 Chronic kidney disease, stage 2 (mild); D64.9 Anemia, unspecified
CPT/HCPCS: 36415; 36416; 80048; 80202; 83036; 85014; 85018; 85025; 86803; 87389; 88305; 88311; 93005; 93010; 99285; A4216; A9579; J0360; J1650; J1956; J2250; J3010; J3370; J7050

== ENCOUNTER 2018-07-09 17:39 | Inpatient (IN) | payer OTHER ==
[2018-07-09 18:36] LABS: #Basophils 0.1 thou/uL (0.0-0.2); #Eosinphils 0.2 thou/uL (0.0-0.7); #Lymphocytes 1.7 thou/uL (1.20-3.40); #Monocytes 0.9 thou/uL (0.11-0.59); #Neutrophils 11.9 thou/uL (1.40-6.50); %Basophils 0.4 % (0.0-1.0); %Eosinophils 1.7 % (0.0-10.0); %Lymphocytes 11.6 % (21.0-51.0); %Monocytes 6.3 % (0.0-10.0); Mean Corpuscular Hemoglobin 28.2 pg (27.0-31.0); Mean Corpuscular Volume 85.5 fL (78.0-98.0); Mean Platelet Volume 9.2 fL (7.4-10.4); Platelet Count 355 thou/uL (130-400); RBC Distribution Width 12.5 % (11.5-14.5); Red Blood Cell (RBC) Count 3.89 mill/uL (4.20-5.40); White Blood Cell (WBC) Count 14.9 thou/uL (4.8-10.8)
[2018-07-09] MEDS ORDERED: Acetaminophen 500 MG TAB ONE (18:38)
[2018-07-09 19:04] LABS: ALT (SGPT) 129 U/L (8-55); Albumin 3.1 g/dL (3.5-5.0); Alkaline Phosphatase 175 U/L (40-150); BUN (Urea Nitrogen) 20 mg/dL (7.0-18.7); Bilirubin, Total 0.4 mg/dL (0.2-1.2); Calc. Creatinine Clearance 0 mL/min (70-130); Calcium 8.3 mg/dL (7.8-10.44); Carbon Dioxide 22 mmol/L (22-29); Chloride 101 mmol/L (98-107); Estimated GFR-MDRD 47; Glucose 188 mg/dL (70-105); Sodium 131 mmol/L (136-145)
--- NOTE | 2018-07-09 19:53 | RAD ---
RIGHT FOOT RADIOGRAPHS THREE VIEWS: 07/09/2018 PROVIDED CLINICAL HISTORY: Second and third digit cellulitis. COMPARISON: 04/04/2018 FINDINGS: Interval amputation of the first digit, at the proximal aspect of the first proximal phalanx. Interv al development of lytic bony destructive change involving the distal phalanx of the second digit. Th ere is also a somewhat indistinct appearance to the distal aspects of the third digit terminal tuft. No additional bony lytic changes are seen. Alignment appears anatomic. Joint spaces appear preserv ed. IMPRESSION: 1. Interval postoperative change involving the first ray. 2. Interval lytic changes involving the second and third digits, compatible with osteomyelitis. POS: [facility]
[2018-07-09 20:17] LABS: AST (SGOT) 267 U/L (5-34); Anion Gap 12 mmol/L (10-20); Globulin 3.2 g/dL (2.4-3.5); Potassium 4.2 mmol/L (3.5-5.1); Protein, Total 6.3 g/dL (6.0-8.3)
[2018-07-09] MEDS ORDERED: Acetaminophen 325 MG TAB PO PRN (20:40)
[2018-07-09] MEDS ORDERED: Ondansetron ODT 4 MG TAB PO PRN (20:40)
[2018-07-09] MEDS ORDERED: Senokot S 8.6-50 MG TAB PO PRN (20:40)
[2018-07-09] MEDS ORDERED: Bisacodyl 5 MG TAB PO PRN (20:40)
[2018-07-09] MEDS ORDERED: Acetaminophen 650 MG Suppository PR PRN (20:40)
[2018-07-09] MEDS ORDERED: Calcium Carbonate 500 MG ChewTAB PO PRN (20:40)
[2018-07-09] MEDS ORDERED: Ondansetron PF 4 MG/2 ML Vial IVP PRN (20:40)
[2018-07-09] MEDS: Sodium Chloride 0.9% 1,000 ML IV SCH ×2 (20:45→23:33)
[2018-07-09] MEDS ORDERED: Clindamycin/D5W 600 mg/50 ml Premix Bag ONE (21:51)
[2018-07-09] MEDS ORDERED: Dextrose 5% in Water 1,000 ML IV PRN (22:40)
[2018-07-09] MEDS ORDERED: Dextrose 50% Abboject 50 ML SYRINGE SLOW IVP PRN (22:40)
[2018-07-09 23:14] VITALS: BMI 29.2
[2018-07-09] MEDS: Metoprolol Tartrate 25 MG TAB PO SCH (23:30)
[2018-07-09] MEDS: Aztreonam 1 GM in Sodium Chloride 0.9% 100 ML IVPB SCH (23:53)
[2018-07-10 04:31] LABS: #Eosinphils 0.3 thou/uL (0.0-0.7); #Lymphocytes 1.7 thou/uL (1.20-3.40); #Monocytes 0.6 thou/uL (0.11-0.59); #Neutrophils 6.3 thou/uL (1.40-6.50); %Basophils 0.2 % (0.0-1.0); %Eosinophils 3.2 % (0.0-10.0); %Lymphocytes 19.3 % (21.0-51.0); %Monocytes 6.5 % (0.0-10.0); %Neutrophils 70.8 % (42.0-75.0); Hemoglobin 9.8 g/dL (12.0-16.0); Mean Corpuscular HGB CONC 32.7 g/dL (32.0-36.0); Mean Corpuscular Hemoglobin 27.9 pg (27.0-31.0); Mean Corpuscular Volume 85.4 fL (78.0-98.0); Mean Platelet Volume 8.7 fL (7.4-10.4); Platelet Count 288 thou/uL (130-400); RBC Distribution Width 12.3 % (11.5-14.5); White Blood Cell (WBC) Count 8.9 thou/uL (4.8-10.8)
[2018-07-10 04:53] LABS: Anion Gap 10 mmol/L (10-20); BUN (Urea Nitrogen) 18 mg/dL (7.0-18.7); Calc. Creatinine Clearance 89 mL/min (70-130); Carbon Dioxide 26 mmol/L (22-29); Chloride 102 mmol/L (98-107); Estimated GFR-MDRD 64; Glucose 186 mg/dL (70-105); Potassium 3.3 mmol/L (3.5-5.1); Sodium 135 mmol/L (136-145)
[2018-07-10] MEDS: Vancomycin HCl 1.25 GM in Sodium Chloride 0.9% 250 ML 250 ML IVPB SCH ×2 (05:32→17:21)
--- NOTE | 2018-07-10 07:48 | HP ---
HISTORY OF PRESENT ILLNESS: This is a 47-year-old female with a past medical history of diabetes mellitus type 2, coronary artery disease status post stent placement, cerebrovascular accidents resulting in right-sided weakness, and a history of amputations of right toe, presenting with right foot infection. The patient reports that she has been experiencing significant pain in her right toes, especially the second and third toe. The patient also stated that she has noted some redness that developed at the right toe. Due to the redness, pain and possible impending ulceration at the toe, the patient decided to come into the ED to be further evaluated. The patient refers that she had a stroke causing weakness to the right foot, which in turn caused her to drag her right foot and toes. The patient had previously been on antibiotics for the treatment of the toe; however, the patient stated that antibiotics that she was taking did not help. The patient stated that in regard to her pain. Her pain is 8/10 and is localized at the toe. The patient denies any fever, chills, nausea, vomiting, dizziness, headaches, chest pain, palpitations, abdominal pain, dysuria, hematuria, hematochezia, melena, constipation, diarrhea at this time, but the patient; however, endorses pain in the right toe. Of note, the patient was here in the hospital on 04/04/2018, the patient was here for right foot of infected diabetic ulcer with cellulitis and osteomyelitis, status post right great toe amputation. REVIEW OF SYSTEMS: Positive for right toe pain, erythema. Otherwise as documented in the HPI, all other systems were reviewed and are negative. PAST MEDICAL HISTORY: Coronary artery disease, status post stents; diabetes mellitus type 2; ischemic cerebrovascular accident x2. FAMILY HISTORY: Reviewed and noncontributory to this visit. PAST SURGICAL HISTORY: Surgical history of amputation to left second toe, right first toe; cholecystectomy; x2; gastric bypass; left eye surgery due to retinal detachment. PSYCHIATRIC HISTORY: Anxiety, bipolar, depression disorders. SOCIAL HISTORY: Denies any illicit drug use, alcohol use, or smoking history. ALLERGIES: THE PATIENT IS ALLERGIC TO PENICILLIN. CURRENT MEDICATIONS: The patient takes aspirin, lisinopril, hydrochlorothiazide, amlodipine, Plavix, buspirone, multivitamins, iron, metoprolol tartrate, probiotic, Paxil. PHYSICAL EXAMINATION: VITAL SIGNS: The patient's blood pressure is 136/69, pulse is 65, respiratory rate of 16, temperature is 99.9. GENERAL: The patient is lying in bed, does not appear to be in any acute distress. The patient is able to speak in full sentences. HEENT: Normocephalic, atraumatic. Pupils are equally round and reactive to light. Extraocular muscles are intact. No scleral icterus. Mucous membranes are moist. NECK: Trachea is midline. Full range of motion. Supple. RESPIRATORY: Clear to auscultation bilaterally. No wheezing, no rales, no rhonchi appreciated. CARDIAC: Positive S1 and S2. Regular rate and rhythm. No murmurs, no gallops, no rubs appreciated. EXTREMITIES: The patient has 5/5 upper extremity strength and good pulses of the upper extremities. In the lower extremities, the patient does have 2+ pitting edema that is noted. The patient has some erythema noted at the second and third toes, marked swelling at the DP. The patient has a decreased dorsalis pedis pulses at the right lower extremity. The patient does have good sensation at the lower extremities bilaterally. There is no open wound that is appreciated, but there is an impending abrasion, which might lead to an ulceration at the third toe. NEUROLOGIC: Cranial nerves 2 through 12 grossly intact. No neurologic deficits noted. SKIN: Kindly refer to the description of the lower extremities. PSYCH: Normal affect. RADIOLOGY DATA: X-rays of right foot shows osteomyelitis. LABORATORY DATA: WBC is 14.9, hemoglobin is 11.0, hematocrit is 33.2, MCV is 85.5, RDW is 12.5, and platelet count is 355. Sodium is 131, potassium is 4.2, chloride is 101, carbon dioxide of 22, anion gap of 12, BUN is 20, creatinine is 1.24, GFR is 47, glucose is 188. Lactic acid is 0.8, AST is 267, ALT is 129, alkaline phosphatase is 175. C-reactive protein is 8.78. ASSESSMENT AND PLAN: This is a 47-year-old female with right lower extremity pain. At this point, imaging has been done, which has confirmed that patient does have osteomyelitis. We will start the patient on vancomycin and Azactam. We will continue these medications. We have consulted Podiatry, Infectious Disease doctors for further evaluation. We have ordered MRI of the right foot to be taken in the a.m. We will follow up on the results on the MRI. We will continue to medically manage the patient. 1. Acute kidney injury likely due to dehydration. At this point, we are going to give the patient some gentle hydration, and we will stop fluids once one bag of normal saline is completed. We will continue to monitor the patient. We will continue the patient on antibiotics. 2. Diabetes mellitus type 2. We will continue to monitor the patient's blood sugars closely. We will manage the patient's blood sugar and keep the patient's blood sugar between 140 and 180. 3. Normocytic anemia likely due to anemia of chronic inflammation. At this point, we are going to continue to monitor and manage the patient. 4. Chronic kidney disease stage 3. The patient is currently receiving IV fluids. We will continue to monitor the patient. 5. Transaminitis, etiology unclear; however, very possible that it is due to fatty liver disease. At this time, we are going to monitor the patient's AST and ALT. 6. Coronary artery disease, status post stents. At this point, the patient is stable. We will continue the patient on her home medications and we will monitor the patient closely. 7. Deep vein thrombosis/gastrointestinal prophylaxis. Job ID: [id number]
[2018-07-10] MEDS ORDERED: Sodium Chloride 0.9% 1,000 ML IV SCH (08:00)
[2018-07-10] MEDS: Clopidogrel Bisulfate 75 MG TAB PO SCH (08:36)
[2018-07-10] MEDS: Ferrous Sulfate 325 MG TAB PO SCH (08:36)
[2018-07-10] MEDS: Aspirin 81 mg Enteric Coated Tablet PO SCH (08:36)
[2018-07-10] MEDS: Lisinopril 20 MG TAB PO SCH (08:36)
[2018-07-10] MEDS: Enoxaparin Sodium 40 MG/0.4 ML SYRINGE SC SCH (08:36)
[2018-07-10] MEDS: Famotidine 20 MG TAB PO SCH ×2 (08:36→20:07)
[2018-07-10] MEDS: Metoprolol Tartrate 25 MG TAB PO SCH ×2 (08:36→20:05)
[2018-07-10] MEDS: Amlodipine 5 MG TAB PO SCH ×2 (08:36→20:06)
[2018-07-10] MEDS: Multivit, Therapeutic 1 TAB PO SCH (08:36)
[2018-07-10] MEDS: busPIRone HCl 10 MG TAB PO SCH (08:37)
[2018-07-10] MEDS: PARoxetine CR 12.5 MG TAB PO SCH (08:37)
[2018-07-10] MEDS: Aztreonam 1 GM in Sodium Chloride 0.9% 100 ML IVPB SCH ×2 (08:41→16:20)
[2018-07-10] MEDS: Famotidine/PF 20 mg/2ml Vial SLOW IVP SCH ×2 (08:42→20:07)
--- NOTE | 2018-07-10 09:46 | HP ---
HISTORY OF PRESENT ILLNESS: Ileana De Leon is a 47-year-old female, presents to the emergency room, admitted by Dr. Velasco, hospitalist for osteomyelitis, right second and third toes documented by x-ray with destruction of the distal toes. The patient has been placed on Azactam and vancomycin. I have seen her previously, and she has undergone amputation of the left second toe and amputation of the right first toe. Plan is amputation of the right second and third toes through the mid phalanx with primary closure and probably can be discharged home on oral antibiotics in the next day or 2. She can weightbear as tolerated postoperatively and wear an orthotic shoe. ALLERGIES: PENICILLIN. HABITS: Tobacco, none. Alcohol, none. MEDICATIONS: At home; 1. Probiotic. 2. Lisinopril/hydrochlorothiazide 20/25 daily. 3. Amlodipine 10 mg daily. 4. Aspirin 81 mg a day. 5. Plavix 75 mg a day. 6. Lopressor 25 mg b.i.d. 7. Iron sulfate b.i.d. 8. Paroxetine 37.5 mg daily. 9. Multivitamins daily. 10. Buspirone daily. PAST SURGICAL HISTORY: Laparoscopic cholecystectomy, amputation of the left second toe, amputation of the right great toe, coronary stents after myocardial infarction in early 1999, Willian-en-Y gastric bypass 1999 in [place], retinal surgery in the past. PAST MEDICAL HISTORY: Coronary artery disease, diabetes mellitus, and hypertension. SOCIAL HISTORY: The patient lives at home with her family. She is unemployed at this time. PHYSICAL EXAMINATION: VITAL SIGNS: 5 feet 3 inches, 165 pounds, 29 BMI. 97.6, 60, and 129/60. HEAD, EARS, EYES, NOSE, AND THROAT: Unremarkable. LUNGS: Clear to auscultation. CARDIAC: Regular rhythm without murmur or gallop. ABDOMEN: Soft and nontender. EXTREMITIES: Palpable femoral and pedal pulses. Osteomyelitis with severe edema, swelling of the right second and third toes distally. Well-healed amputation sites, right great toe and left second toe amputated through the proximal phalanx. ASSESSMENT AND PLAN: 1. Osteomyelitis, right second and third toes. Plan amputation through proximal phalanx with primary closure and anticipate discharge home in the next day or 2 on oral antibiotics. She can follow up in my office in about 2 weeks for suture removal. She can weightbear as tolerated postoperatively. 2. Coronary artery disease. Check EKG preoperatively. 3. Diabetes mellitus. 4. Hypertension. Job ID: [id number]
--- NOTE | 2018-07-10 14:11 | PDOC.PN ---
- Subjective Encounter Start Date: 07/10/18 Encounter Start Time: 13:35 Ms. De Leon does not have any complaints this afternoon. She has been seen by Dr. Junior, and the plan is proceed with toe amputation - Objective Resuscitation Status - Order Detail: 07/09/18 20:40 Resuscitation Status Routine Resuscitation Status: FULL: Full Resuscitation MAR Reviewed: Yes Vital Signs & Weight: Vital Signs (12 hours) Temp Pulse Resp BP BP BP Pulse Ox 07/10/18 11:26 98.1 F 60 18 143/61 H 96 07/10/18 08:36 60 07/10/18 08:00 97.7 F 60 20 167/77 H 95 07/10/18 04:21 97.6 F 60 16 129/60 92 L Weight Admit Weight 165 lb 8 oz Weight 165 lb 8 oz Result Diagrams: 07/10/18 04:05 07/10/18 04:05 Additional Labs: Accuchecks 07/10/18 07/10/18 07/09/18 10:58 05:31 22:56 POC Glucose 131 H 160 H 150 H Phys Exam - Physical Examination HEENT: PERRLA, sclera anicteric Respiratory: no wheezing, no rales, no rhonchi, clear to auscultation bilateral Cardiovascular: RRR, no significant murmur, no rub Gastrointestinal: soft, non-tender, no distention, positive bowel sounds Musculoskeletal: pulses present, edema present 2+ pitting edema in both lower extremities Neurological: non-focal, moves all 4 limbs Dx/Plan (1) Acute osteomyelitis of toe of right foot Code(s): M86.171 - OTHER ACUTE OSTEOMYELITIS, RIGHT ANKLE AND FOOT Status: Acute (2) DM type 2 (diabetes mellitus, type 2) Status: Chronic Qualifiers: Diabetes mellitus termite helper insulin use: with half-way use Diabetes mellitus complication status: with circulatory complication Diabetes mellitus complication detail: with other circulatory complications Qualified Code(s): E11.59 - Type 2 diabetes mellitus with other circulatory complications; Z79.4 - intermediate (current) use of insulin (3) Hypertension Code(s): I10 - ESSENTIAL (PRIMARY) HYPERTENSION Status: Chronic Qualifiers: Hypertension type: essential hypertension Qualified Code(s): I10 - Essential (primary) hypertension - Plan * Osteomyelitis of the toes on the right foot- continue Aztreonam and Vancomycin * Plan is for amputation later this evening. * HTN- blood pressure is controlled
--- NOTE | 2018-07-10 17:55 | EKG ---
Test Reason : PREOP Blood Pressure : / mmHG Vent. Rate : 057 BPM Atrial Rate : 057 BPM P-R Int : 238 ms QRS Dur : 088 ms QT Int : 488 ms P-R-T Axes : 002 -19 017 degrees QTc Int : 474 ms Sinus bradycardia with 1st degree A-V block Minimal voltage criteria for LVH, may be normal variant Borderline ECG When compared with ECG of 05-APR-2018 16:31, KS interval has increased Confirmed by CHENG LUEVANO ([id number]) on 07/10/2018 5:54:52 PM Referred By: MARCIAL Confirmed By:CHENG LUEVANO
[2018-07-10] MEDS: HumaLOG 300 UNITS/3 ML VIAL SC PRN (21:08)
--- NOTE | 2018-07-10 22:13 | CON ---
DATE OF CONSULTATION: 07/10/2018 REASON FOR CONSULTATION: Osteomyelitis, right foot. HISTORY OF PRESENT ILLNESS: A 47-year-old, whom I had seen in the past just a few months ago when she presented with history of type 2 diabetes, hypertension, and prior CVA with no residual defect, as well as coronary artery disease and a right foot ulcer in the first toe. The patient underwent amputation pretty much of the entire toe with preservation of the MPJ. Now, she comes in with swelling and inflammatory changes to second and third toes of the same side. This has been present for the past few weeks and had failed oral antimicrobial therapy in the outpatient setting. No headaches, no visual symptoms, sore throat, odynophagia , or dysphagia. No cough or sputum production. No chest pain. No abdominal pain or diarrhea. No genitourinary symptoms. No neurological symptoms. PAST MEDICAL HISTORY: Coronary artery disease, type 2 diabetes, neuropathy, right first toe amputation for management of osteomyelitis, CVA without residual. FAMILY HISTORY: Noncontributory. SOCIAL HISTORY: Never smoker. ALLERGIES: PENICILLIN WITH A RASH. MEDICATIONS: Current medication list includes; 1. Tylenol. 2. Norvasc. 3. Ecotrin. 4. Aztreonam. 5. Calcium. 6. Dextrose. 7. Pepcid. 8. Insulin. 9. Lopressor. 10. Minocycline. 11. Paxil. 12. Vancomycin. PHYSICAL EXAMINATION: VITAL SIGNS: T-max 98.1, blood pressure 140/61, pulse 60, respirations 18, O2 saturation 96%. SKIN: Shows the second and third toe marked swelling, sort of sausage-shaped toes. At the distal end, there are 2 ulcerated areas that are in place of a previously removed nail bed. There is erythema surrounding those distal areas. The right first toe amputation site appears intact with no inflammatory changes. The fourth and fifth toes appear to be normal. No lymphadenopathy. Peripheral IV access. She is urinating spontaneously, and she denies any lymphadenopathy. HEENT: Ocular movements conjugate. Oral cavity normal. Quite a few teeth in place in fairly decent shape. NECK: Supple. No jugular vein distention. LUNGS: Symmetric. Clear breath sounds. HEART: S1 and S2. Regular rate. No S3 or S4. ABDOMEN: Soft, not distended or tender. No ascites. No bladder distention. EXTREMITIES: No other joint inflammatory process noted. She is able to move extremities equally with no limitations. NEUROLOGIC: Cognitive function appears to be intact. VASCULAR: Pulses are 1+ in dorsalis pedis and 1+ in popliteals. Cap refill appears normal. LABORATORY DATA: White cell count on arrival 14.9 and now 8.9, hemoglobin 11, platelets 355 with predominance of mature neutrophils in the differential. Sodium 131; creatinine 1.24, now down to 0.95. AST 267, ALT 129, alkaline phosphatase 175. CRP 8.78, albumin 3.1. Previous microbiology information is not remarkable for any particular organisms. She did have cultures submitted this time from blood. Dr. Junior has seen the patient and is scheduled for amputation tomorrow. The patient has a foot x-ray from this admission, which shows lytic changes in the second and third digits which are localized to the distal phalanx of the second digit and distal phalanx of the third digit. ASSESSMENT: Type 2 diabetes with neuropathy. Previous amputation of the right first toe and now with pressure injuries to the distal aspect of the second and third with development of osteomyelitis. This seems to be somewhat predictable development in view of the change the mechanics of the foot after the first toe amputation. The patient will undergo amputation of hopefully the distal end of those involved digits and then assuming an adequate margin of amputation, then transition to oral antimicrobial therapy guided by cultures that will hopefully be submitted from the amputation specimen. Prior eval indicates adequate vascular supply. Job ID: [id number] MTDD
[2018-07-11] MEDS: Aztreonam 1 GM in Sodium Chloride 0.9% 100 ML IVPB SCH ×4 (00:19→23:58)
[2018-07-11] MEDS: Vancomycin HCl 1.25 GM in Sodium Chloride 0.9% 250 ML 250 ML IVPB SCH (05:47)
[2018-07-11 05:57] LABS: Vancomycin, Trough 25.4 ug/mL
[2018-07-11] MEDS: Aspirin 81 mg Enteric Coated Tablet PO SCH (07:54)
[2018-07-11] MEDS: Clopidogrel Bisulfate 75 MG TAB PO SCH (07:54)
[2018-07-11] MEDS: Enoxaparin Sodium 40 MG/0.4 ML SYRINGE SC SCH (07:54)
[2018-07-11] MEDS: busPIRone HCl 10 MG TAB PO SCH (07:54)
[2018-07-11] MEDS: Ferrous Sulfate 325 MG TAB PO SCH (07:55)
[2018-07-11] MEDS: Multivit, Therapeutic 1 TAB PO SCH (07:55)
[2018-07-11] MEDS: Famotidine 20 MG TAB PO SCH ×2 (07:55→21:09)
[2018-07-11] MEDS: PARoxetine CR 12.5 MG TAB PO SCH (07:58)
[2018-07-11] MEDS: Lisinopril 20 MG TAB PO SCH (07:58)
[2018-07-11] MEDS ORDERED: Sodium Chloride 0.9% 1,000 ML IV SCH (08:00)
[2018-07-11] MEDS: Metoprolol Tartrate 25 MG TAB PO SCH ×2 (08:47→21:08)
[2018-07-11] MEDS: Famotidine/PF 20 mg/2ml Vial SLOW IVP SCH ×2 (08:47→21:18)
[2018-07-11] MEDS: Amlodipine 5 MG TAB PO SCH ×2 (08:47→21:17)
[2018-07-11] MEDS ORDERED: Bacitracin Zinc Ointment 30 gm TUBE ONE (12:58)
[2018-07-11] MEDS ORDERED: Fentanyl 100 MCG/2 ML VIAL ONE (12:59)
[2018-07-11] MEDS ORDERED: traMADol HCl 50 MG TAB PO PRN ×2 (14:03)
[2018-07-11] MEDS ORDERED: Ibuprofen 600 MG TAB PO PRN (14:03)
[2018-07-11] MEDS ORDERED: Acetaminophen 500 MG TAB PO PRN (14:03)
[2018-07-11 15:24] LABS: Anion Gap 13 mmol/L (10-20); BUN (Urea Nitrogen) 11 mg/dL (7.0-18.7); Calc. Creatinine Clearance 104 mL/min (70-130); Calcium 8.6 mg/dL (7.8-10.44); Carbon Dioxide 23 mmol/L (22-29); Chloride 105 mmol/L (98-107); Estimated GFR-MDRD 76; Glucose 125 mg/dL (70-105); Potassium 3.8 mmol/L (3.5-5.1); Sodium 137 mmol/L (136-145)
[2018-07-11] MEDS: Vancomycin HCl 1 GM in Premix Bag 1 BAG IVPB SCH (15:32)
--- NOTE | 2018-07-11 17:30 | PDOC.PN ---
- Subjective Encounter Start Date: 07/11/18 Encounter Start Time: 17:28 Ms. De Leon was seen today in follow-up of osteomyelitis of her toe on the right foot. She is s/p amputation. She says the pain is controlled, she just feels a bit sleepy - Objective Resuscitation Status - Order Detail: 07/09/18 20:40 Resuscitation Status Routine Resuscitation Status: FULL: Full Resuscitation MAR Reviewed: Yes Vital Signs & Weight: Vital Signs (12 hours) Temp Pulse Resp BP BP Pulse Ox 07/11/18 14:30 98.4 F 61 18 135/51 L 93 L 07/11/18 10:48 98.1 F 60 16 149/81 H 92 L 07/11/18 08:47 60 145/73 H 07/11/18 08:46 95 07/11/18 07:58 156/72 H 07/11/18 07:37 98.0 F 60 16 145/73 H 95 Weight Admit Weight 165 lb 8 oz Weight 165 lb 8 oz I&O: 07/10/18 07/11/18 07/12/18 06:59 06:59 06:59 Intake Total 2120 Balance 2120 Result Diagrams: 07/10/18 04:05 07/11/18 14:54 Additional Labs: Accuchecks 07/11/18 07/11/18 07/11/18 16:07 11:14 06:11 POC Glucose 183 H 122 H 128 H 07/10/18 20:39 POC Glucose 266 H Phys Exam - Physical Examination HEENT: PERRLA Respiratory: no wheezing, no rales, no rhonchi, clear to auscultation bilateral Cardiovascular: RRR, no significant murmur, no rub Gastrointestinal: soft, non-tender, no distention, positive bowel sounds Musculoskeletal: no edema Dx/Plan (1) Acute osteomyelitis of toe of right foot Code(s): M86.171 - OTHER ACUTE OSTEOMYELITIS, RIGHT ANKLE AND FOOT Status: Acute (2) DM type 2 (diabetes mellitus, type 2) Status: Chronic Qualifiers: Diabetes mellitus intermodal dispatcher insulin use: with intermodal dispatcher use Diabetes mellitus complication status: with circulatory complication Diabetes mellitus complication detail: with other circulatory complications Qualified Code(s): E11.59 - Type 2 diabetes mellitus with other circulatory complications; Z79.4 - skilled nursing (current) use of insulin (3) Hypertension Code(s): I10 - ESSENTIAL (PRIMARY) HYPERTENSION Status: Chronic Qualifiers: Hypertension type: essential hypertension Qualified Code(s): I10 - Essential (primary) hypertension - Plan * Osteomyelitis- she is s/p amputation of the affected toes * Continue the current antibiotics- and will await culture results * DM- blood glucose is stable * HTN- blood pressure is stable.
[2018-07-11] MEDS: HumaLOG 300 UNITS/3 ML VIAL SC PRN (17:32)
[2018-07-11] MEDS ORDERED: Lidocaine 1% PF 5 ML VIAL ONE (21:15)
[2018-07-11] MEDS ORDERED: Metoclopramide HCl 10 MG/2 ML VIAL ONE (21:15)
[2018-07-11] MEDS ORDERED: Ondansetron PF 4 MG/2 ML Vial ONE (21:15)
[2018-07-11] MEDS ORDERED: PROPOFOL 200 MG/20 ML VIAL ONE (21:15)
--- NOTE | 2018-07-11 23:00 | OP ---
DATE OF PROCEDURE: 07/11/2018 PREOPERATIVE DIAGNOSES: Osteomyelitis, right 2nd and 3rd toes; diabetic infection. POSTOPERATIVE DIAGNOSES: Osteomyelitis, right 2nd and 3rd toes; diabetic infection. PROCEDURES: Amputation of right 2nd and 3rd toes with primary closure, amputation of the proximal phalanx. ANESTHESIA: anesthesia. Excellent blood supply, here on the feet. No PAD. DESCRIPTION OF PROCEDURE: The patient was taken to the operating room. Under anesthesia, right lower extremity was prepared with ChloraPrep and draped in routine fashion. Incision was made through the proximal phalanx for fish-mouth incision, amputation of the right second and third toes of the proximal phalanx, dividing the phalanx with a bone cutter resecting it proximally utilizing the rongeur, debriding connective tissue sharply, and gained hemostasis with cautery. Wound was irrigated. Subcutaneous tissue was approximated with 4-0 Monocryl and skin with 4-0 Prolene. Antibiotic ointment and sterile dressing applied. The patient tolerated the procedure well. Job ID: [id number]
[2018-07-12] MEDS: Cepastat Lozenges 1 LOZ PO PRN ×2 (02:10→23:46)
[2018-07-12] MEDS: Vancomycin HCl 1 GM in Premix Bag 1 BAG IVPB SCH ×2 (05:33→18:25)
[2018-07-12] MEDS: Aztreonam 1 GM in Sodium Chloride 0.9% 100 ML IVPB SCH ×3 (08:27→23:20)
[2018-07-12] MEDS: PARoxetine CR 12.5 MG TAB PO SCH (08:31)
[2018-07-12] MEDS: busPIRone HCl 10 MG TAB PO SCH (08:32)
[2018-07-12] MEDS: Multivit, Therapeutic 1 TAB PO SCH (08:32)
[2018-07-12] MEDS: Enoxaparin Sodium 40 MG/0.4 ML SYRINGE SC SCH (08:32)
[2018-07-12] MEDS: Ferrous Sulfate 325 MG TAB PO SCH (08:33)
[2018-07-12] MEDS: Metoprolol Tartrate 25 MG TAB PO SCH ×2 (08:33→20:24)
[2018-07-12] MEDS: Aspirin 81 mg Enteric Coated Tablet PO SCH (08:33)
[2018-07-12] MEDS: Amlodipine 5 MG TAB PO SCH ×2 (08:33→20:24)
[2018-07-12] MEDS: Clopidogrel Bisulfate 75 MG TAB PO SCH (08:33)
[2018-07-12] MEDS: Famotidine/PF 20 mg/2ml Vial SLOW IVP SCH ×2 (08:34→20:25)
[2018-07-12] MEDS: Lisinopril 20 MG TAB PO SCH (08:34)
[2018-07-12] MEDS: Famotidine 20 MG TAB PO SCH ×2 (08:34→20:25)
--- NOTE | 2018-07-12 10:07 | PRG ---
DATE OF SERVICE: 07/12/2018 Ileana De Leon is doing well today. She is afebrile. In the operating room, her toes were amputated, second and third toes with the proximal phalanx and wounds closed. She has dressings on her feet. She has instructions to remove these tomorrow and apply antibiotic ointment and Band-Aid. She can wash them daily with soap and water and repeat this. She should follow up in my office in 2 weeks. She can weightbear as tolerated with a postoperative shoe. From a surgical standpoint, she can be discharged to home on antibiotics per Dr. Jimenez. I will see her as needed in this hospitalization. She has to come and see me in the next week as an outpatient to undergo robotic repair of incisional hernia. Job ID: [id number]
[2018-07-12] MEDS: HumaLOG 300 UNITS/3 ML VIAL SC PRN ×2 (13:00→20:26)
--- NOTE | 2018-07-12 16:24 | PDOC.PN ---
- Subjective Encounter Start Date: 07/12/18 Encounter Start Time: 14:00 Ms. De Leon was seen today in follow-up of osteomyelitis of the toes on the right foot. She does not have any complaints. She denies any pain in the foot. - Objective Resuscitation Status - Order Detail: 07/09/18 20:40 Resuscitation Status Routine Resuscitation Status: FULL: Full Resuscitation MAR Reviewed: Yes Vital Signs & Weight: Vital Signs (12 hours) Temp Pulse Resp BP BP BP Pulse Ox 07/12/18 15:39 98.4 F 55 L 18 162/77 H 98 07/12/18 11:12 97.8 F 66 18 152/76 H 94 L 07/12/18 08:34 153/71 H 07/12/18 08:33 65 153/71 H 07/12/18 08:00 92 L 07/12/18 07:39 98.1 F 65 18 153/71 H 92 L Weight Admit Weight 165 lb 8 oz Weight 165 lb 8 oz I&O: 07/11/18 07/12/18 07/13/18 06:59 06:59 06:59 Intake Total 2120 1180 Balance 2120 1180 Result Diagrams: 07/10/18 04:05 07/11/18 14:54 Additional Labs: Accuchecks 07/12/18 07/12/18 07/12/18 15:37 10:50 05:43 POC Glucose 76 262 H 126 H 07/11/18 21:08 POC Glucose 139 H Phys Exam - Physical Examination HEENT: PERRLA Respiratory: no wheezing, no rales, no rhonchi, clear to auscultation bilateral Cardiovascular: RRR, no significant murmur, no rub Gastrointestinal: soft, non-tender, no distention, positive bowel sounds Musculoskeletal: pulses present, edema present + swelling in the ht foot Dx/Plan (1) Acute osteomyelitis of toe of right foot Code(s): M86.171 - OTHER ACUTE OSTEOMYELITIS, RIGHT ANKLE AND FOOT Status: Acute (2) DM type 2 (diabetes mellitus, type 2) Status: Chronic Qualifiers: Diabetes mellitus intermediate insulin use: with intermediate use Diabetes mellitus complication status: with circulatory complication Diabetes mellitus complication detail: with other circulatory complications Qualified Code(s): E11.59 - Type 2 diabetes mellitus with other circulatory complications; Z79.4 - boot lace cutter machine (current) use of insulin (3) Hypertension Code(s): I10 - ESSENTIAL (PRIMARY) HYPERTENSION Status: Chronic Qualifiers: Hypertension type: essential hypertension Qualified Code(s): I10 - Essential (primary) hypertension - Plan * Osteomyelitis of the 2nd and 3rd toes on the right foot- she is s/p amputation of the effected. * Continue IV antibiotics pending the results of the cultures * DM- blood glucose is stable * HTN- blood pressure is slightly elevated today- will monitor the trend, and continue PRN medications-
[2018-07-13 05:32] LABS: Vancomycin, Trough 23.8 ug/mL
[2018-07-13] MEDS: Vancomycin HCl 1 GM in Premix Bag 1 BAG IVPB SCH (05:41)
[2018-07-13] MEDS ORDERED: Vancomycin HCl 750 MG in Sodium Chloride 0.9% 250 ML 250 ML IVPB SCH ×2 (06:00→08:00)
[2018-07-13] MEDS: Enoxaparin Sodium 40 MG/0.4 ML SYRINGE SC SCH (08:08)
[2018-07-13] MEDS: Aztreonam 1 GM in Sodium Chloride 0.9% 100 ML IVPB SCH (08:08)
[2018-07-13] MEDS: busPIRone HCl 10 MG TAB PO SCH (08:08)
[2018-07-13] MEDS: Multivit, Therapeutic 1 TAB PO SCH (08:09)
[2018-07-13] MEDS: Clopidogrel Bisulfate 75 MG TAB PO SCH (08:09)
[2018-07-13] MEDS: Amlodipine 5 MG TAB PO SCH (08:09)
[2018-07-13] MEDS: Lisinopril 20 MG TAB PO SCH (08:09)
[2018-07-13] MEDS: Ferrous Sulfate 325 MG TAB PO SCH (08:09)
[2018-07-13] MEDS: Metoprolol Tartrate 25 MG TAB PO SCH (08:09)
[2018-07-13] MEDS: Famotidine 20 MG TAB PO SCH (08:09)
[2018-07-13] MEDS: PARoxetine CR 12.5 MG TAB PO SCH (08:10)
[2018-07-13] MEDS: Aspirin 81 mg Enteric Coated Tablet PO SCH (08:10)
[2018-07-13] MEDS: Famotidine/PF 20 mg/2ml Vial SLOW IVP SCH (08:19)
[2018-07-13 11:43] VITALS: BP 144/77; TEMP 98.2
[2018-07-13] MEDS: HumaLOG 300 UNITS/3 ML VIAL SC PRN (11:52)
[2018-07-13] MEDS ORDERED: Triple Antibiotic Oint 1 GM Packet TOP SCH (14:00)
--- NOTE | 2018-07-13 14:56 | PDOC.PN ---
- Subjective Encounter Start Date: 07/13/18 Encounter Start Time: 14:45 Ms. De Leon was seen today in follow-up of gangrene of the 2nd and 3rd toes on the right foot. - Objective Resuscitation Status - Order Detail: 07/09/18 20:40 Resuscitation Status Routine Resuscitation Status: FULL: Full Resuscitation MAR Reviewed: Yes Vital Signs & Weight: Vital Signs (12 hours) Temp Pulse Resp BP Pulse Ox 07/13/18 11:35 98.2 F 62 16 144/77 H 96 07/13/18 07:40 98.3 F 61 16 181/81 H 96 07/13/18 05:23 98 F 58 L 18 152/71 H 95 Weight Admit Weight 165 lb 8 oz Weight 165 lb 8 oz I&O: 07/12/18 07/13/18 07/14/18 06:59 06:59 06:59 Intake Total 1180 2630 Balance 1180 2630 Result Diagrams: 07/10/18 04:05 07/11/18 14:54 Additional Labs: Accuchecks 07/13/18 07/13/18 07/12/18 11:33 05:54 20:26 POC Glucose 215 H 119 H 203 H 07/12/18 07/12/18 16:34 15:37 POC Glucose 143 H 76 Phys Exam - Physical Examination HEENT: PERRLA Respiratory: no wheezing, no rales, no rhonchi, clear to auscultation bilateral Cardiovascular: RRR, no significant murmur, no rub Gastrointestinal: soft, non-tender, positive bowel sounds Musculoskeletal: no edema Dx/Plan (1) Acute osteomyelitis of toe of right foot Code(s): M86.171 - OTHER ACUTE OSTEOMYELITIS, RIGHT ANKLE AND FOOT Status: Acute (2) DM type 2 (diabetes mellitus, type 2) Status: Chronic Qualifiers: Diabetes mellitus marine oil terminal superintendent insulin use: with fdc use Diabetes mellitus complication status: with circulatory complication Diabetes mellitus complication detail: with other circulatory complications Qualified Code(s): E11.59 - Type 2 diabetes mellitus with other circulatory complications; Z79.4 - terminal make up operator (current) use of insulin (3) Hypertension Code(s): I10 - ESSENTIAL (PRIMARY) HYPERTENSION Status: Chronic Qualifiers: Hypertension type: essential hypertension Qualified Code(s): I10 - Essential (primary) hypertension - Plan * Gangrene 2nd and 3rd toes- s/p amputation- clinically stable * Culture results are back * Stable for discharge home.
--- NOTE | 2018-07-14 06:37 | DIS ---
DATE OF ADMISSION: 07/09/2018 DATE OF DISCHARGE: 07/13/2018 PRIMARY CARE PHYSICIAN: Dr. Danica Zarate. DISCHARGE DISPOSITION: Home. PRIMARY DISCHARGE DIAGNOSES: 1. Gangrene of the 2nd and 3rd toes on the right foot. 2. Diabetes mellitus. 3. Coronary artery disease. 4. History of cerebrovascular accident. DISCHARGE MEDICATIONS: Include; 1. Keflex 500 mg 1 p.o. 3 times a day for 10 days. 2. Aspirin 81 mg daily. 3. Paroxetine 37.5 mg daily. 4. Theragran-M once a day. 5. Lopressor 25 mg twice daily. 6. Lisinopril/hydrochlorothiazide 20/25 twice a day. 7. Iron sulfate 325 mg twice daily. 8. Plavix 75 mg daily. 9. BuSpar 10 mg twice a day. 10. Amlodipine 10 mg daily. PROCEDURES DONE: During the admission, the patient had amputation of the 2nd and 3rd toes on the right foot. CODE STATUS: Full code. ALLERGIES: PENICILLIN. HOSPITAL COURSE: Ms. De Leon is a pleasant 47-year-old female who had swelling and inflammation on the 2nd and 3rd toes on the right foot. She has a history of having a previous toe amputation due to diabetes mellitus, and there was concern for osteomyelitis. She had an x-ray of the foot, which showed changes that were compatible with osteomyelitis. She was admitted and General Surgery was consulted. She was started on broad-spectrum IV antibiotics. She underwent amputation of the 2nd and 3rd toes. Cultures from the room grew beta-hemolytic strep and Keflex was recommended by Dr. Jimenez for outpatient antibiotic therapy. The patient basically tolerated the procedure well, had no postop complications, and was discharged home on 07/13/2018. Job ID: [id number]
== END 2018-07-13 17:05 | disposition home or self-care (01) | DRG 504 ==
LOC: ERS 17:39 → ONC 19:54 → SURG B 07-10 22:28
PROVIDERS: ADMIT Internal Medicine; ATTEND Internal Medicine
PROC: 0Y6R0Z1 Detachment at Right 2nd Toe, High, Open Approach (ICD-10-PCS; principal; 2018-07-09)
PROC: 0Y6T0Z1 Detachment at Right 3rd Toe, High, Open Approach (ICD-10-PCS; 2018-07-09)
DX: M86.8X7 Other osteomyelitis, ankle and foot (principal); I96 Gangrene, not elsewhere classified; N17.9 Acute kidney failure, unspecified; B95.4 Other streptococcus as the cause of diseases classified elsewhere; I25.10 Atherosclerotic heart disease of native coronary artery without angina pectoris; Z79.4 Long term (current) use of insulin; E11.40 Type 2 diabetes mellitus with diabetic neuropathy, unspecified; Z89.421 Acquired absence of other right toe(s); Z86.73 Personal history of transient ischemic attack (TIA), and cerebral infarction without residual deficits; E86.0 Dehydration; D63.1 Anemia in chronic kidney disease
CPT/HCPCS: 36415; 36416; 80048; 80053; 80202; 83605; 85025; 85652; 86140; 87040; 87070; 87077; 87205; 88305; 88311; 93005; 93010; 96365; 96375; G8978-GP-CJ; G8979-GP-CJ; G8980-GP-CJ; G8987-GO-CI; G8988-GO-CI; G8989-GO-CI; J1650; J2001; J2405; J2704; J2765; J3010; J3370; J3490; J7050; S0028

== ENCOUNTER 2018-07-18 05:44 | Inpatient (IN) | payer OTHER ==
--- NOTE | 2018-07-13 07:33 | HP ---
ADDENDUM: (To 04/12/2018 H&P, #[id number]) Ileana Sebastian presents for robotic incisional hernia repair with mesh. I first saw her on . She is now ready to schedule this operation. She has an incisional hernia about 4-5 finger breadths below her xiphoid in her upper abdomen to the left of midline. Plan is for robotic repair o f this incisional hernia with mesh. She had an open Willian-en-Y gastric bypass in [place]. She has enjoyed successful weight loss per above recent history and physical. Risks and benefits discussed. Questions answered. PAST MEDICAL HISTORY: See recent history and physical as above. PHYSICAL EXAMINATION: VITAL SIGNS: Weight 162 pounds, 5 feet 3 inches, 142/44, 59, 98.2 degrees. HEADS, EYES, EARS, NOSE, AND THROAT: Unremarkable. Poor dentition. LUNGS: Clear to auscultation. CARDIAC: Regular rate and rhythm without murmur or gallop. ABDOMEN: Soft, nontender. Incisional hernia in upper abdomen, described. EXTREMITIES: Unremarkable. ASSESSMENT AND PLAN: Incisional hernia. Plan, robotic mesh repair outpatient.
[2018-07-18] MEDS ORDERED: Bupivacaine/Epinephrine 0.25% 30 ML VIAL ONE (06:34)
[2018-07-18] MEDS ORDERED: Levofloxacin 500 mg/D5W 100 ml Premix Bag ONE (06:52)
[2018-07-18] MEDS ORDERED: Ketorolac Tromethamine 30 MG/ML VIAL ONE (06:52)
[2018-07-18] MEDS ORDERED: Fentanyl 250 MCG/5 ML VIAL ONE (08:01)
[2018-07-18] MEDS ORDERED: Fentanyl 100 MCG/2 ML VIAL ONE (11:50)
--- NOTE | 2018-07-18 13:25 | OP ---
DATE OF PROCEDURE: 07/18/2018 PREOPERATIVE DIAGNOSIS: Incisional hernia, probably 9 cm defect, upper abdomen. POSTOPERATIVE DIAGNOSIS: Incisional hernia, probably 9 cm defect, upper abdomen with adhesions. PROCEDURE PERFORMED: Robotic lysis of adhesions with primary repair of incisional hernia and reinforcement with 11 x 15 cm elliptical mesh Ventralight. ANESTHESIA: General. DESCRIPTION OF PROCEDURE: The patient was taken to the operating room under general anesthesia, Rawls was catheter placed at the beginning of procedure, removed at the end. Abdomen was prepared with ChloraPrep, draped in routine fashion. Because of a midline incision, right lateral subcostal incision made. Pneumoperitoneum to 15 mmHg obtained with the Veress needle, replaced with a 5 port, and the laparoscope inserted. There were adhesions in lower and midline abdomen. Under direct visualization, incision was made at the anterior superior iliac spines in the lower abdomen. An 8-mm port was placed in the midline suprapubic and 11-mm port placed. Using the LigaSure, omental adhesions were taken down from the infraumbilical midline. Robot then docked and robotic adhesiolysis carried out using the robot, hot scissors and bipolar. Transverse colon was involved in the hernia and this was taken down, taking down the omentum from the hernia sac, freeing the falciform ligament using cautery for hemostasis. Once this was completed, the pneumoperitoneum was reduced to 10 mmHg and fascia approximated with continuous suture of #1 V-Loc. Two sutures were required. Good approximation was achieved. Hernia sac incorporated where possible into the closure to decrease this volume. The mesh was then placed in the abdominal cavity and secured circumferentially with 2-0 V-Loc suture x2. All sutures and needles were removed. Good hernia repair appreciated. All the instruments were removed, and all the incisions were closed with continuous subdermal 4-0 Monocryl and Black-glue applied. Job ID: [id number]
[2018-07-18] MEDS ORDERED: Morphine 4 MG/ML VIAL ONE (14:46)
[2018-07-18] MEDS ORDERED: HYDROcodone/Acetaminophen 5/325 mg Tablet ONE (16:16)
[2018-07-18 17:30] LABS: #Lymphocytes 0.8 thou/uL (1.20-3.40); #Monocytes 0.1 thou/uL (0.11-0.59); #Neutrophils 11.1 thou/uL (1.40-6.50); %Basophils 0.1 % (0.0-1.0); %Lymphocytes 6.6 % (21.0-51.0); %Monocytes 0.7 % (0.0-10.0); %Neutrophils 92.6 % (42.0-75.0); Mean Corpuscular HGB CONC 32.3 g/dL (32.0-36.0); Mean Corpuscular Hemoglobin 28.2 pg (27.0-31.0); Mean Corpuscular Volume 87.5 fL (78.0-98.0); Platelet Count 248 thou/uL (130-400); RBC Distribution Width 13.1 % (11.5-14.5); Red Blood Cell (RBC) Count 2.49 mill/uL (4.20-5.40)
[2018-07-18] MEDS ORDERED: HumaLOG 300 UNITS/3 ML VIAL SC PRN (17:37)
[2018-07-18] MEDS ORDERED: Ondansetron PF 4 MG/2 ML Vial IVP PRN (17:37)
[2018-07-18] MEDS ORDERED: Dextrose 5% in Water 1,000 ML IV PRN ×2 (17:37→17:43)
[2018-07-18] MEDS ORDERED: Ondansetron ODT 4 MG TAB PO PRN (17:37)
[2018-07-18] MEDS ORDERED: Dextrose 50% Abboject 50 ML SYRINGE SLOW IVP PRN ×2 (17:37→17:43)
[2018-07-18] MEDS ORDERED: Acetaminophen 500 MG TAB PO PRN (17:43)
[2018-07-18] MEDS ORDERED: traMADol HCl 50 MG TAB PO PRN ×2 (17:43)
[2018-07-18] MEDS ORDERED: Dexamethasone 20 MG/5 ML VIAL ONE (18:28)
[2018-07-18] MEDS ORDERED: Lidocaine 1% PF 5 ML VIAL ONE (18:28)
[2018-07-18] MEDS ORDERED: Ondansetron PF 4 MG/2 ML Vial ONE (18:28)
[2018-07-18] MEDS ORDERED: PROPOFOL 200 MG/20 ML VIAL ONE (18:28)
[2018-07-18] MEDS: Lactated Ringer's 1,000 ML IV SCH (19:20)
[2018-07-18] MEDS: busPIRone HCl 10 MG TAB PO SCH (20:09)
[2018-07-18] MEDS: Metoprolol Tartrate 25 MG TAB PO SCH (20:12)
[2018-07-18] MEDS: Acetaminophen 1,000 MG in Premix Bag 1 BAG IVPB PRN (20:12)
[2018-07-18 21:06] LABS: #Lymphocytes 0.8 thou/uL (1.20-3.40); #Monocytes 0.3 thou/uL (0.11-0.59); #Neutrophils 10.9 thou/uL (1.40-6.50); %Basophils 0.3 % (0.0-1.0); %Eosinophils 0.1 % (0.0-10.0); %Lymphocytes 6.9 % (21.0-51.0); %Monocytes 2.8 % (0.0-10.0); %Neutrophils 89.9 % (42.0-75.0); Hemoglobin 6.6 g/dL (12.0-16.0); Mean Corpuscular HGB CONC 33.2 g/dL (32.0-36.0); Mean Corpuscular Hemoglobin 28.5 pg (27.0-31.0); Mean Corpuscular Volume 85.7 fL (78.0-98.0); Mean Platelet Volume 10.2 fL (7.4-10.4); Platelet Count 241 thou/uL (130-400); Red Blood Cell (RBC) Count 2.32 mill/uL (4.20-5.40); White Blood Cell (WBC) Count 12.1 thou/uL (4.8-10.8)
[2018-07-18] MEDS: Ketorolac Tromethamine 30 MG/ML VIAL IVP PRN (21:18)
[2018-07-18] MEDS: HumaLOG 300 UNITS/3 ML VIAL SC PRN (21:23)
[2018-07-18] MEDS: Morphine 4 MG/ML VIAL SLOW IVP PRN (22:02)
[2018-07-18 23:12] VITALS: BMI 31.7
[2018-07-19] MEDS: Acetaminophen 1,000 MG in Premix Bag 1 BAG IVPB PRN (06:09)
[2018-07-19] MEDS: Lactated Ringer's 1,000 ML IV SCH (06:10)
[2018-07-19] MEDS: Ketorolac Tromethamine 30 MG/ML VIAL IVP PRN ×2 (06:11→11:21)
[2018-07-19] MEDS: HumaLOG 300 UNITS/3 ML VIAL SC PRN ×3 (06:17→21:40)
[2018-07-19 07:14] LABS: ALT (SGPT) 55 U/L (8-55); AST (SGOT) 59 U/L (5-34); Albumin 2.5 g/dL (3.5-5.0); Alkaline Phosphatase 86 U/L (40-150); Anion Gap 20 mmol/L (10-20); BUN (Urea Nitrogen) 34 mg/dL (7.0-18.7); Bilirubin, Total 0.2 mg/dL (0.2-1.2); Calc. Creatinine Clearance 41 mL/min (70-130); Calcium 7.7 mg/dL (7.8-10.44); Carbon Dioxide 15 mmol/L (22-29); Chloride 105 mmol/L (98-107); Estimated GFR-MDRD 24; Globulin 2.7 g/dL (2.4-3.5); Glucose 226 mg/dL (70-105); Potassium 5.7 mmol/L (3.5-5.1); Protein, Total 5.2 g/dL (6.0-8.3); Sodium 134 mmol/L (136-145)
[2018-07-19] MEDS ORDERED: Sodium Chloride 0.9% 1,000 ML IV SCH ×3 (07:30→21:15)
[2018-07-19 07:49] LABS: #Lymphocytes 1.8 thou/uL (1.20-3.40); #Monocytes 0.9 thou/uL (0.11-0.59); #Neutrophils 11.4 thou/uL (1.40-6.50); %Basophils 0.2 % (0.0-1.0); %Eosinophils 0.3 % (0.0-10.0); %Lymphocytes 12.7 % (21.0-51.0); %Monocytes 6.1 % (0.0-10.0); %Neutrophils 80.7 % (42.0-75.0); Hemoglobin 5.2 g/dL (12.0-16.0); Mean Corpuscular HGB CONC 33.6 g/dL (32.0-36.0); Mean Corpuscular Hemoglobin 28.3 pg (27.0-31.0); Mean Corpuscular Volume 84.3 fL (78.0-98.0); Mean Platelet Volume 10.9 fL (7.4-10.4); Platelet Count 209 thou/uL (130-400); RBC Distribution Width 13.5 % (11.5-14.5); Red Blood Cell (RBC) Count 1.83 mill/uL (4.20-5.40); White Blood Cell (WBC) Count 14.1 thou/uL (4.8-10.8)
--- NOTE | 2018-07-19 08:42 | PRG ---
DATE OF SERVICE: SUBJECTIVE: Ileana De Leon was hospitalized last night due to postoperative pain and an episode of orthostasis. She has had a gastric bypass in the past and has chronic anemia. Last night, her hemoglobin was 7 postoperatively and 6.6 yesterday and this morning is 5.2. She feels slightly weak and she is pale. VITAL SIGNS: Temperature 98.2 degrees, 16 respiratory rate, 93%, blood pressure 115/77. She has urinated once during the night. This morning her white count is 14, hemoglobin 5.2. Sodium 134, potassium 5.7, carbon dioxide 15, BUN 34, creatinine 2.25. OBJECTIVE: LUNGS: Clear to auscultation. CARDIAC: Regular rate and rhythm without murmur or gallop. ABDOMEN: Soft. Bowel sounds present. Mild tenderness diffusely. Suspect hemoperitoneum. EXTREMITIES: Unremarkable. ASSESSMENT/PLAN: Anemia postoperatively. Transfuse 1 unit of blood. The patient is having postoperative pain. We will ask Anesthesia to start a RADIOISOTOPE PRODUCTION OPERATOR. Her potassium is slightly high. I will change her IV fluids from LR to a normal saline as her sodium is also 135. We will give her a saline fluid bolus and increase her IV fluid rate to 150 per hour and transfuse 1 unit of blood. We will observe her overnight. Check renal function in the morning and check her hemoglobin later today and in the morning. Job ID: [id number]
[2018-07-19] MEDS: Morphine 4 MG/ML VIAL SLOW IVP PRN (08:45)
[2018-07-19] MEDS: Multivit, Therapeutic 1 TAB PO SCH (08:47)
[2018-07-19] MEDS: Metoprolol Tartrate 25 MG TAB PO SCH ×2 (08:48→20:13)
[2018-07-19] MEDS: Aspirin 81 mg Enteric Coated Tablet PO SCH (08:48)
[2018-07-19] MEDS: busPIRone HCl 10 MG TAB PO SCH ×2 (08:48→20:13)
[2018-07-19] MEDS: Sodium Chloride 0.9% 1,000 ML IV SCH ×3 (08:49→20:07)
[2018-07-19] MEDS: PARoxetine CR 12.5 MG TAB PO SCH (10:16)
[2018-07-19] MEDS ORDERED: fentaNYL Citrate/PF 2,000 MCG in Sodium Chloride 0.9% 60 ML IV PRN (13:18)
[2018-07-19] MEDS ORDERED: Naloxone HCl 0.4 mg/ml Vial IV PRN (13:18)
[2018-07-19] MEDS: Acetaminophen 1,000 MG in Premix Bag 1 BAG IVPB SCH ×2 (14:01→20:11)
[2018-07-19 14:02] LABS: #Eosinphils 0.1 thou/uL (0.0-0.7); #Lymphocytes 2.4 thou/uL (1.20-3.40); #Monocytes 1.1 thou/uL (0.11-0.59); #Neutrophils 12.1 thou/uL (1.40-6.50); %Basophils 0.3 % (0.0-1.0); %Eosinophils 0.5 % (0.0-10.0); %Monocytes 6.9 % (0.0-10.0); %Neutrophils 77.3 % (42.0-75.0); Hemoglobin 6.6 g/dL (12.0-16.0); Mean Corpuscular HGB CONC 33.2 g/dL (32.0-36.0); Mean Corpuscular Hemoglobin 28.8 pg (27.0-31.0); Mean Corpuscular Volume 86.6 fL (78.0-98.0); Mean Platelet Volume 10.2 fL (7.4-10.4); Platelet Count 186 thou/uL (130-400); RBC Distribution Width 13.1 % (11.5-14.5); Red Blood Cell (RBC) Count 2.28 mill/uL (4.20-5.40); White Blood Cell (WBC) Count 15.7 thou/uL (4.8-10.8)
[2018-07-19 17:23] LABS: #Basophils 0.1 thou/uL (0.0-0.2); #Lymphocytes 2.6 thou/uL (1.20-3.40); #Monocytes 1.1 thou/uL (0.11-0.59); %Basophils 0.4 % (0.0-1.0); %Eosinophils 0.2 % (0.0-10.0); %Lymphocytes 15.8 % (21.0-51.0); %Monocytes 6.3 % (0.0-10.0); %Neutrophils 77.4 % (42.0-75.0); Hemoglobin 6.6 g/dL (12.0-16.0); Mean Corpuscular Hemoglobin 29.3 pg (27.0-31.0); Mean Corpuscular Volume 86.3 fL (78.0-98.0); Mean Platelet Volume 10.4 fL (7.4-10.4); Platelet Count 187 thou/uL (130-400); RBC Distribution Width 13.2 % (11.5-14.5); Red Blood Cell (RBC) Count 2.24 mill/uL (4.20-5.40); White Blood Cell (WBC) Count 16.7 thou/uL (4.8-10.8)
[2018-07-19 19:50] LABS: Anion Gap 19 mmol/L (10-20); BUN (Urea Nitrogen) 40 mg/dL (7.0-18.7); Calc. Creatinine Clearance 33 mL/min (70-130); Calcium 7.6 mg/dL (7.8-10.44); Carbon Dioxide 15 mmol/L (22-29); Chloride 107 mmol/L (98-107); Estimated GFR-MDRD 19; Glucose 172 mg/dL (70-105); Potassium 5.6 mmol/L (3.5-5.1); Sodium 135 mmol/L (136-145)
[2018-07-19] MEDS ORDERED: ePHEDrine/0.9% NaCl/PF SYRINGE 50 mg/10 ml ONE (20:05)
[2018-07-19] MEDS ORDERED: PROPOFOL 200 MG/20 ML VIAL ONE (20:05)
[2018-07-19] MEDS ORDERED: Lidocaine 1% PF 5 ML VIAL ONE (20:05)
[2018-07-19] MEDS ORDERED: Succinylcholine Chloride 20 MG/ML 10 ml SYRINGE FS ONE (20:05)
[2018-07-19 20:07] LABS: #Basophils 0.1 thou/uL (0.0-0.2); #Lymphocytes 1.8 thou/uL (1.20-3.40); #Monocytes 1.1 thou/uL (0.11-0.59); #Neutrophils 13.8 thou/uL (1.40-6.50); %Basophils 0.5 % (0.0-1.0); %Eosinophils 0.1 % (0.0-10.0); %Lymphocytes 10.7 % (21.0-51.0); %Monocytes 6.6 % (0.0-10.0); %Neutrophils 82.2 % (42.0-75.0); Hemoglobin 6.4 g/dL (12.0-16.0); Mean Corpuscular HGB CONC 33.9 g/dL (32.0-36.0); Mean Corpuscular Volume 88.6 fL (78.0-98.0); Mean Platelet Volume 10.6 fL (7.4-10.4); Platelet Count 181 thou/uL (130-400); RBC Distribution Width 13.2 % (11.5-14.5); Red Blood Cell (RBC) Count 2.14 mill/uL (4.20-5.40); White Blood Cell (WBC) Count 16.8 thou/uL (4.8-10.8)
[2018-07-19] MEDS ORDERED: Bupivacaine HCl 0.5%/Epinephrine 1:200,000/PF 30 ml Vial ONE (22:32)
[2018-07-19] MEDS ORDERED: Midazolam HCl 2 mg/2 ml Vial ONE (22:51)
[2018-07-19] MEDS ORDERED: Fentanyl 100 MCG/2 ML VIAL ONE (22:51)
[2018-07-19] MEDS ORDERED: Sodium Chloride 0.9% 30 ML ONE (23:02)
[2018-07-19] MEDS ORDERED: PHENYLEPHRINE-NS 100 MCG/ML 10 ML SYRINGE ONE (23:11)
[2018-07-20] MEDS ORDERED: Promethazine HCl 25 MG/ML VIAL IM PRN ×2 (00:02→00:29)
[2018-07-20] MEDS ORDERED: Ondansetron HCl/PF 4 MG/2 ML Vial IVP PRN (00:02)
[2018-07-20] MEDS ORDERED: Promethazine HCl 25 MG/ML VIAL SLOW IVP PRN (00:02)
[2018-07-20] MEDS ORDERED: diphenhydrAMINE 50 MG/ML VIAL IVP PRN (00:29)
[2018-07-20] MEDS ORDERED: diphenhydrAMINE 50 MG/ML VIAL IM PRN (00:29)
[2018-07-20] MEDS ORDERED: Naloxone HCl 0.4 mg/ml Vial IV PRN (00:29)
[2018-07-20] MEDS ORDERED: Zolpidem Tartrate 5 MG TAB PO PRN (00:29)
[2018-07-20] MEDS ORDERED: diphenhydrAMINE 25 MG CAP PO PRN (00:29)
[2018-07-20] MEDS ORDERED: Ondansetron PF 4 MG/2 ML Vial IVP PRN (00:29)
[2018-07-20] MEDS ORDERED: fentaNYL Citrate/PF 2,000 MCG in Sodium Chloride 0.9% 60 ML IV PRN (00:29)
[2018-07-20] MEDS ORDERED: Communication Order-Pharmacy FS SCH (00:30)
[2018-07-20] MEDS ORDERED: Dextrose 50% Abboject 50 ML SYRINGE SLOW IVP PRN (00:42)
[2018-07-20] MEDS ORDERED: Dextrose 5% in Water 1,000 ML IV PRN (00:42)
[2018-07-20] MEDS ORDERED: HumaLOG 300 UNITS/3 ML VIAL SC PRN (00:42)
[2018-07-20] MEDS: Acetaminophen 1,000 MG in Premix Bag 1 BAG IVPB SCH ×2 (02:33→08:12)
--- NOTE | 2018-07-20 03:01 | HP ---
SUBJECTIVE: Ileana De Leon had a unit of blood this morning for hemoglobin of 5.2. Hemoglobin has been checked today at 1353 of 6.6, at 1709 of 6.6, at 1956 of 6.4. The patient has been out of bed. Her urine output has been very low. She has acute kidney injury with elevation in BUN and creatinine. IV fluids at 0115 hours. She has received fluid boluses during the day. Her blood pressure has been 129, 100, and 132 systolic at 1047, 1632, and 1935 respectfully. Heart rate has been normal. Her abdomen is tender throughout. ASSESSMENT: Postoperative bleeding. PLAN: Laparoscopy. We will transfuse 2 more units of blood. We will plan this emergently tonight. Job ID: [id number]
--- NOTE | 2018-07-20 03:26 | OP ---
DATE OF PROCEDURE: 07/20/2018 PREOPERATIVE DIAGNOSIS: Postoperative bleeding after robotic incisional hernia repair, upper abdomen. POSTOPERATIVE DIAGNOSES: Postoperative bleeding after robotic incisional hernia repair, upper abdomen with mostly hematoma and one focus of oozing in the upper midline abdomen, but no active bleeding discovered. PROCEDURES PERFORMED: Diagnostic laparoscopy, laparoscopic evacuation of old blood, laparoscopic abdominal washout, and placement of Jarett. ANESTHESIA: General, local with 0.5% Marcaine with epinephrine 30 mL. DESCRIPTION OF PROCEDURE: The patient was taken to the operating room, where under general anesthesia, Rawls catheter was placed and the left subclavian vein central line was placed. Using Seldinger technique and ChloraPrep sterile technique, infraclavicular approach used to place a triple-lumen catheter, removed the J-wire, securing the catheter with interrupted sutures of 3-0 nylon. Sterile dressing applied. Sutures placed around the exit site of bleeding. The patient tolerated the procedure well. Abdominal cavity was prepared with ChloraPrep and draped in routine fashion. Rawls catheter was placed and left in place postoperatively. Incision was made in left lateral subcostal. Pneumoperitoneum to 15 mmHg obtained with Veress needle, replaced with a 5 port, and laparoscope inserted. Under laparoscopic visualization, an infraumbilical incision was made and 5 port placed and the left mid lateral abdominal incision was made and 5 port placed, keeping trocars free of the previously placed mesh robotically. Right lateral subcostal incision was made and 11 port placed to count a larger suction. Old clots and blood were evacuated. Abdominal washout occurred. Omentum was inspected. All trocar sites inspected. There was one focus of bleeding in the upper midline abdomen, controlled with the LigaSure, this was of small ooze and questionably significant. Old clot was removed. Abdominal cavity irrigated and irrigant evacuated. Careful inspection, prolonged inspection carried out noting absence of any major bleeding. Jarett 2 vials spread over the omentum underneath the mesh. Mesh was intact. Hernia repair intact. At this point, irrigant and pneumoperitoneum evacuated. All instruments were removed, and all skin incisions were approximated with interrupted subdermal 4-0 Monocryl and [place] glue applied. Job ID: [id number]
[2018-07-20] MEDS: Sodium Chloride 0.9% 1,000 ML IV SCH ×3 (03:30→10:28)
[2018-07-20 07:14] LABS: #Basophils 0.1 thou/uL (0.0-0.2); #Lymphocytes 1.2 thou/uL (1.20-3.40); #Monocytes 0.7 thou/uL (0.11-0.59); #Neutrophils 9.2 thou/uL (1.40-6.50); %Basophils 0.6 % (0.0-1.0); %Eosinophils 0.3 % (0.0-10.0); %Lymphocytes 10.7 % (21.0-51.0); %Monocytes 6.5 % (0.0-10.0); Hemoglobin 7.7 g/dL (12.0-16.0); Mean Corpuscular HGB CONC 34.4 g/dL (32.0-36.0); Mean Corpuscular Hemoglobin 30.2 pg (27.0-31.0); Mean Corpuscular Volume 87.8 fL (78.0-98.0); Platelet Count 131 thou/uL (130-400); RBC Distribution Width 13.1 % (11.5-14.5); Red Blood Cell (RBC) Count 2.55 mill/uL (4.20-5.40); White Blood Cell (WBC) Count 11.2 thou/uL (4.8-10.8)
[2018-07-20 07:18] LABS: INR-International Normal Ratio 1.2
[2018-07-20 07:27] LABS: Hemoglobin A1c 5.7 % (4.0-6.0)
[2018-07-20 07:36] LABS: Anion Gap 14 mmol/L (10-20); BUN (Urea Nitrogen) 37 mg/dL (7.0-18.7); Calc. Creatinine Clearance 43 mL/min (70-130); Calcium 7.6 mg/dL (7.8-10.44); Carbon Dioxide 19 mmol/L (22-29); Chloride 108 mmol/L (98-107); Estimated GFR-MDRD 25; Glucose 182 mg/dL (70-105); Potassium 4.4 mmol/L (3.5-5.1); Sodium 137 mmol/L (136-145)
--- NOTE | 2018-07-20 09:08 | RAD ---
CHEST 1 VIEW: HISTORY: Central line placement. COMPARISON: Radiograph of 10/01/2016. FINDINGS: A left subclavian central venous catheter is in place with tip at the cavoatrial junction. Layering effusions. Lungs are hypoinflated with vascular crowding. Mild edema. A left subclavian central venous catheter is in place with tip at the cavoatrial junction. Layering effusions. Lungs are hypoinflated with vascular crowding. Mild edema. No pneumothorax. IMPRESSION: 1. Uncomplicated placement of central venous catheter. 2. Layering effusions bilaterally. 3. Cardiomegaly and mild pulmonary edema. POS: [facility]
[2018-07-20] MEDS: Metoprolol Tartrate 25 MG TAB PO SCH ×2 (09:44→20:12)
[2018-07-20] MEDS: busPIRone HCl 10 MG TAB PO SCH ×2 (09:44→20:12)
[2018-07-20] MEDS: Aspirin 81 mg Enteric Coated Tablet PO SCH (09:44)
[2018-07-20] MEDS: Multivit, Therapeutic 1 TAB PO SCH (09:44)
[2018-07-20] MEDS ORDERED: Furosemide 20 MG/2 ML VIAL SLOW IVP SCH (10:00)
[2018-07-20] MEDS: PARoxetine CR 12.5 MG TAB PO SCH (10:28)
[2018-07-20] MEDS ORDERED: Acetaminophen 500 MG TAB PO PRN (12:00)
--- NOTE | 2018-07-20 22:47 | PDOC.GSPN ---
Surgery Progress Note: Subj - Subjective Narrative: Patient is feeling better today after transfusion and return to the OR. Her hemoglobin and hematocrit farideh with transfusion and she is not feeling lightheaded or dizzy. She is having minimal abdominal pain related to her surgery and no nausea or vomiting. She is tolerating her diet but has very little appetite. Vital signs are good and her incisions are clean and dry. Urine output is also good. Assessment/plan: Patient is status post robotic ventral hernia repair with postoperative bleeding requiring return to OR. She is doing well since her second operation and transfusions. I'm going to keep her in IMCU today to monitor her hydration and renal function. Her creatinine got up to 2.7 but is down a bit today. Surgery Progress Note: Obj - Vital signs Vital signs: Vital Signs - Most Recent Temp Pulse Resp BP Pulse Ox 99.0 F 89 18 165/79 H 96 07/20/18 19:51 07/20/18 19:51 07/20/18 19:51 07/20/18 19:51 07/20/18 19:51 Surgery Progress Note: Results - Labs Result Diagrams: 07/20/18 07:00 07/20/18 07:00 Lab results: Laboratory Results - last 24 hr 07/20/18 07/20/18 07/20/18 10:59 17:01 20:06 POC Glucose 180 H 173 H 142 H
[2018-07-21] MEDS: Sodium Chloride 0.9% 1,000 ML IV SCH (01:54)
[2018-07-21 04:41] LABS: #Eosinphils 0.3 thou/uL (0.0-0.7); #Lymphocytes 1.1 thou/uL (1.20-3.40); #Monocytes 0.8 thou/uL (0.11-0.59); #Neutrophils 9.7 thou/uL (1.40-6.50); %Basophils 0.1 % (0.0-1.0); %Eosinophils 2.6 % (0.0-10.0); %Lymphocytes 8.9 % (21.0-51.0); %Monocytes 6.5 % (0.0-10.0); %Neutrophils 81.9 % (42.0-75.0); Hemoglobin 6.7 g/dL (12.0-16.0); Mean Corpuscular HGB CONC 34.4 g/dL (32.0-36.0); Mean Corpuscular Hemoglobin 30.4 pg (27.0-31.0); Mean Corpuscular Volume 88.5 fL (78.0-98.0); Mean Platelet Volume 10.1 fL (7.4-10.4); Platelet Count 118 thou/uL (130-400); RBC Distribution Width 13.5 % (11.5-14.5); Red Blood Cell (RBC) Count 2.19 mill/uL (4.20-5.40); White Blood Cell (WBC) Count 11.9 thou/uL (4.8-10.8)
[2018-07-21 04:51] LABS: Anion Gap 14 mmol/L (10-20); BUN (Urea Nitrogen) 26 mg/dL (7.0-18.7); Calc. Creatinine Clearance 64 mL/min (70-130); Calcium 7.8 mg/dL (7.8-10.44); Carbon Dioxide 19 mmol/L (22-29); Chloride 108 mmol/L (98-107); Estimated GFR-MDRD 40; Glucose 154 mg/dL (70-105); Potassium 3.8 mmol/L (3.5-5.1); Sodium 137 mmol/L (136-145)
[2018-07-21] MEDS: Multivit, Therapeutic 1 TAB PO SCH (08:03)
[2018-07-21] MEDS: Metoprolol Tartrate 25 MG TAB PO SCH ×2 (08:03→20:10)
[2018-07-21] MEDS: Aspirin 81 mg Enteric Coated Tablet PO SCH (08:03)
[2018-07-21] MEDS: busPIRone HCl 10 MG TAB PO SCH ×2 (08:03→20:10)
[2018-07-21] MEDS: PARoxetine CR 12.5 MG TAB PO SCH (08:19)
[2018-07-21] MEDS ORDERED: HYDROcodone/Acetaminophen 10/325 mg Tablet PO PRN (09:33)
[2018-07-21] MEDS ORDERED: traMADol HCl 50 MG TAB PO PRN ×2 (09:34)
[2018-07-21] MEDS ORDERED: Fentanyl 100 MCG/2 ML VIAL SLOW IVP PRN (09:37)
[2018-07-21 10:08] LABS: Hemoglobin 6.2 g/dL (12.0-16.0)
[2018-07-21] MEDS: HYDROcodone/Acetaminophen 10/325 mg Tablet PO PRN ×2 (10:57→20:11)
[2018-07-21] MEDS ORDERED: Furosemide 40 MG/4 ML VIAL ONE ×2 (14:50→14:51)
[2018-07-21] MEDS ORDERED: Furosemide 20 MG/2 ML VIAL SLOW IVP SCH (15:15)
--- NOTE | 2018-07-21 15:27 | CON ---
DATE OF CONSULTATION: 07/21/2018 SERVICE: Pulmonary Medicine. REASON FOR CONSULTATION: ICU patient. HISTORY OF PRESENT ILLNESS: The patient is a 47-year-old white female with past medical history significant for gastric bypass surgery. She has lost a significant amount of weight, but ended up having a symptomatic incisional hernia. She presented to the hospital for an elective repair. This was an uncomplicated procedure, but after the procedure, she dropped significant amount of blood counts. As such, she was taken back to the operating room where a bleeding lesion was identified and cauterized. Currently, she is recovering in the IMCU. She continues to have abdominal discomfort, but is passing gas. She does not have much of an appetite at this point. She denies any current fevers, chills, nausea, or vomiting. Otherwise, there has been no interval change to her condition. Her hemoglobin as of this morning was 6.2. She is getting an additional unit of blood presently. PAST MEDICAL HISTORY: 1. Coronary artery disease. 2. History of PCI. 3. Type 2 diabetes mellitus. 4. CVA. 5. Morbid obesity. 6. Dyslipidemia. PAST SURGICAL HISTORY: 1. Amputation of the toes for history of gangrene. 2. Cholecystectomy. 3. Gastric bypass surgery. 4. section x2. 5. Left eye surgery secondary to retinal detachment. 6. Repair of incisional hernia with mesh. 7. Laparotomy for exploration of bleeding lesion. SOCIAL HISTORY: Negative for alcohol, tobacco, or illicit drug use. Denies any exposure to chemicals, dust, asbestos, or tuberculosis. FAMILY HISTORY: Noncontributory. ALLERGIES: PENICILLIN. MEDICATIONS: List of her inpatient medications was reviewed. No specific updates were made at this time. REVIEW OF SYSTEMS: General; head, ears, eyes, nose, throat; cardiovascular; respiratory; GI; ; musculoskeletal; neurologic; and skin are negative, except as mentioned in the HPI. PHYSICAL EXAMINATION: VITAL SIGNS: Afebrile, pulse 73, blood pressure 171/78, respirations 19, and saturation 100% on 3 L nasal cannula. GENERAL: The patient is awake and alert, in no apparent distress. LUNGS: Excellent air entry without prolonged expiratory phase. Dependent crackles are noted. HEART: Normal rate and regular. ABDOMEN: Soft. Abdominal tenderness is present. There is no rebound or guarding. Bowel sounds are present. MUSCULOSKELETAL: No cyanosis or clubbing. Diffuse 2+ edema is present. GENITOURINARY: Rawls catheter in place. NEUROLOGIC: Grossly nonfocal. DIAGNOSTIC DATA: Hemoglobin 6.2. She has already received 2 FFPs and 4 packed red blood cells. With this, her hemoglobins have not significantly improved. INR 1.2. Creatinine 1.42, BUN 26. Basic metabolic profile is otherwise unremarkable. Calcium 7.8. ASSESSMENT: 1. Acute blood loss anemia. 2. Acute hypoxic respiratory failure. 3. Elective repair of incisional hernia, followed by postop bleed, status post laparotomy and repair. 4. Type 2 diabetes mellitus, severe. DISCUSSION AND PLAN: The patient will be watched in the ICU. She will stay here until her hemoglobin stabilizes. She is significantly volume overloaded with elevated blood pressure. As such, I will give her a small dose of Lasix. Her home blood pressure medications will be restarted. Pulmonary Critical Care will continue to follow while the patient remains in the IMCU. 70 minutes have been devoted to this patient in various activities. I personally reviewed all imaging studies and laboratory data noted within this document. For fifty percent of this time, I was interacting with the patient at the bedside or coordinating care with the care team. For the remainder of the time I was immediately available to the patient in the hospital unit. Job ID: [id number] MTDD
[2018-07-21] MEDS: hydrALAZINE 20 MG/ML VIAL SLOW IVP PRN (18:17)
--- NOTE | 2018-07-21 21:31 | PDOC.GSPN ---
Surgery Progress Note: Subj - Subjective Narrative: Patient is feeling good this evening. She denies any nausea vomiting or significant abdominal pain. She has minimal tenderness at her incisions. She denies any lightheadedness or shortness of breath. She is eating okay but has very little appetite. Vital signs are normal and she is afebrile. She is saturating well. Urine output is good. H&H drifted down overnight from 7.7 and 22.4 to 6.7 and 19.4. This was unchanged on recheck so she received 2 more units of transfusion. Her BUN and creatinine are slowly coming down. Her abdominal incisions are clean dry and intact and she has appropriate minimal lacey-incisional tenderness. Assessment/plan: Status post robotic ventral hernia repair with postoperative bleeding. I believe that the decrease in H&H overnight represents equilibration more than ongoing bleeding. I'm going to leave her in IMCU tonight for closer monitoring. If her labs are stable tomorrow she should be able to go up to the surgical floor. Surgery Progress Note: Obj - Vital signs Vital signs: Vital Signs - Most Recent Temp Pulse Resp BP Pulse Ox 98.5 F 71 26 H 154/71 H 96 07/21/18 19:52 07/21/18 19:52 07/21/18 19:52 07/21/18 19:52 07/21/18 19:52 Surgery Progress Note: Results - Labs Result Diagrams: 07/21/18 17:29 07/21/18 04:25 Lab results: Laboratory Results - last 24 hr 07/18/18 07/21/18 07/21/18 17:18 09:59 11:02 Hgb 6.2 L Hct 18.0 L POC Glucose 136 H Blood Type A POSITIVE Antibody Screen NEGATIVE Crossmatch See Detail 07/21/18 07/21/18 07/21/18 17:19 17:29 20:21 Hgb 9.0 L Hct 25.9 L POC Glucose 136 H 138 H Blood Type Antibody Screen Crossmatch
[2018-07-22] MEDS: HYDROcodone/Acetaminophen 10/325 mg Tablet PO PRN ×3 (05:21→19:33)
[2018-07-22 05:35] LABS: Hemoglobin 8.8 g/dL (12.0-16.0)
[2018-07-22 05:57] LABS: Anion Gap 9 mmol/L (10-20); BUN (Urea Nitrogen) 18 mg/dL (7.0-18.7); Calc. Creatinine Clearance 98 mL/min (70-130); Calcium 8.1 mg/dL (7.8-10.44); Carbon Dioxide 24 mmol/L (22-29); Chloride 107 mmol/L (98-107); Estimated GFR-MDRD 67; Glucose 108 mg/dL (70-105); Potassium 3.6 mmol/L (3.5-5.1); Sodium 136 mmol/L (136-145)
[2018-07-22] MEDS ORDERED: Furosemide 20 MG/2 ML VIAL SLOW IVP SCH ×2 (06:00→14:15)
[2018-07-22] MEDS: busPIRone HCl 10 MG TAB PO SCH ×2 (07:55→20:28)
[2018-07-22] MEDS: Multivit, Therapeutic 1 TAB PO SCH (07:55)
[2018-07-22] MEDS: Aspirin 81 mg Enteric Coated Tablet PO SCH (07:55)
[2018-07-22] MEDS: PARoxetine CR 12.5 MG TAB PO SCH (07:55)
[2018-07-22] MEDS: Metoprolol Tartrate 25 MG TAB PO SCH ×2 (07:55→20:28)
[2018-07-22] MEDS: hydrALAZINE 20 MG/ML VIAL SLOW IVP PRN (12:59)
[2018-07-22] MEDS ORDERED: Amlodipine 10 MG TAB PO SCH (14:00)
--- NOTE | 2018-07-22 14:04 | PRG ---
DATE OF SERVICE: 07/22/2018 SERVICE: Pulmonary Medicine. INTERVAL HISTORY: The patient is doing fine from respiratory standpoint. Breathing comfortably. Denies any current chest pain, fevers, or chills. She is having some abdominal discomfort. She is tolerating some p.o. She did not have any nausea. She is passing some gas. Otherwise, there has been no interval change to her condition. OBJECTIVE: VITAL SIGNS: Afebrile. Pulse 61, blood pressure 181/77, respirations 20, and saturation 91% on 3 L nasal cannula. GENERAL: The patient is awake and alert, in no apparent distress. LUNGS: Decent air entry. Crackles are present. There is no prolonged expiratory phase or wheezing appreciated. HEART: Normal rate. Regular. ABDOMEN: Soft. Tender to palpation, but no rebound or guarding is present. Bowel sounds are active. : Rawls catheter in place. NEUROLOGIC: Grossly nonfocal. LABORATORY DATA: Hemoglobin is stable at 8.8. Basic metabolic profile is completely unremarkable other than potassium of 3.6. Creatinine 0.91. ASSESSMENT: 1. Acute blood loss anemia, stable. 2. Acute hypoxic respiratory failure, improving. 3. Type 2 diabetes mellitus, severe. 4. Hypertension. 5. Elective repair of incisional hernia, followed by postoperative bleed, status post laparotomy and repair. 6. Acute kidney injury. DISCUSSION AND PLAN: We will replace the patient's potassium. We will repeat hemoglobin and hematocrit tomorrow morning. From my perspective, the patient is stable for transition to the surgical unit. Pulmonary will continue to follow for now. We will resume some of her home blood pressure medications and continue to diurese her until she returns to euvolemia. Job ID: [id number] [facility]
[2018-07-22] MEDS ORDERED: Lisinopril 20 MG TAB PO SCH (14:15)
[2018-07-22] MEDS ORDERED: Potassium Chloride 20 MEQ TAB PO SCH (14:15)
--- NOTE | 2018-07-22 18:05 | PRG ---
DATE OF SERVICE: 07/22/2018 SUBJECTIVE: Ms. De Leon remains on the intermediate care unit. She is postoperative day #4 from a robotic repair of an upper abdominal incisional hernia. She had an intraoperative bleed for which she required an emergency laparoscopic operation on the same day to control bleeding. Her hemoglobin had dropped from 11.3 down to a low of 5.2. She has been transfused with a total of 5 units of packed red blood cells. Her last unit of blood was yesterday and her hemoglobin farideh from 6.2 up to 9.0 after being given 2 units of blood yesterday. She tells me that she does not feel particularly well, but has no acute symptoms. She has been tolerating her diet. She still has in a Rawls catheter for reasons that I am not certain. She also had an amputation of two toes on her right foot by Dr. Junior on July 11. She has been followed by Dr. Bazan, who has assisted with her medical management and pulmonary issues. She complains of a headache today because of her hypertension and antihypertensive medications were restarted. OBJECTIVE: VITAL SIGNS: On examination today, she is afebrile, pulse is 64, blood pressure is 184/81, oxygen saturation is 100%. LUNGS: Clear to auscultation anteriorly. CARDIAC: Regular rate and rhythm. ABDOMEN: Soft with laparoscopic and robotic incisions healing appropriately. Bowel sounds are present and normoactive. LABORATORY DATA: Hemoglobin level is 8.8 this morning, stable from 9.0 last night. Basic metabolic panel was unremarkable this morning. ASSESSMENT AND PLAN: The patient is stable first four days out from her robotic ventral hernia repair. She does not appear to have any further blood loss. She opts to be stable for discharge tomorrow assuming she remains stable. Job ID: [id number]
[2018-07-22] MEDS: Sodium Chloride 0.9% 1,000 ML IV SCH (20:28)
[2018-07-23] MEDS: HYDROcodone/Acetaminophen 10/325 mg Tablet PO PRN ×2 (01:06→14:11)
[2018-07-23] MEDS ORDERED: Furosemide 20 MG/2 ML VIAL SLOW IVP SCH (06:00)
[2018-07-23 06:02] LABS: #Eosinphils 0.9 thou/uL (0.0-0.7); #Lymphocytes 1.6 thou/uL (1.20-3.40); #Monocytes 0.8 thou/uL (0.11-0.59); #Neutrophils 7.7 thou/uL (1.40-6.50); %Eosinophils 8.2 % (0.0-10.0); %Lymphocytes 14.4 % (21.0-51.0); %Monocytes 7.4 % (0.0-10.0); %Neutrophils 69.9 % (42.0-75.0); Hemoglobin 9.3 g/dL (12.0-16.0); Mean Corpuscular HGB CONC 32.9 g/dL (32.0-36.0); Mean Corpuscular Hemoglobin 29.3 pg (27.0-31.0); Platelet Count 216 thou/uL (130-400); RBC Distribution Width 13.5 % (11.5-14.5); Red Blood Cell (RBC) Count 3.17 mill/uL (4.20-5.40)
[2018-07-23 06:14] LABS: Phosphorus 2.3 mg/dL (2.3-4.7)
[2018-07-23 06:15] LABS: Anion Gap 9 mmol/L (10-20); BUN (Urea Nitrogen) 16 mg/dL (7.0-18.7); Calc. Creatinine Clearance 97 mL/min (70-130); Calcium 8.2 mg/dL (7.8-10.44); Carbon Dioxide 27 mmol/L (22-29); Chloride 103 mmol/L (98-107); Estimated GFR-MDRD 68; Glucose 206 mg/dL (70-105); Magnesium 1.5 mg/dL (1.6-2.6); Potassium 3.9 mmol/L (3.5-5.1); Sodium 135 mmol/L (136-145)
[2018-07-23] MEDS: busPIRone HCl 10 MG TAB PO SCH (08:44)
[2018-07-23] MEDS: Metoprolol Tartrate 25 MG TAB PO SCH (08:44)
[2018-07-23] MEDS: Multivit, Therapeutic 1 TAB PO SCH (08:44)
[2018-07-23] MEDS: Aspirin 81 mg Enteric Coated Tablet PO SCH (08:44)
[2018-07-23] MEDS: PARoxetine CR 12.5 MG TAB PO SCH (08:46)
[2018-07-23] MEDS ORDERED: Lisinopril 20 MG TAB PO SCH (09:00)
[2018-07-23] MEDS ORDERED: Amlodipine 10 MG TAB PO SCH (09:00)
--- NOTE | 2018-07-23 12:02 | DIS ---
DATE OF ADMISSION: 07/18/2018 DATE OF DISCHARGE: 07/23/2018 OPERATIONS AND PROCEDURES PERFORMED: Robotic repair of ventral abdominal hernia on 07/18 with subsequent emergent laparoscopy for intraabdominal bleeding, also on 07/18. ADMISSION HISTORY: The patient is a 47-year-old female, known to Dr. Junior. He had recently (on July 11) performed toe amputations on her. She presents this time for robotic repair of ventral abdominal hernia. Her surgery was performed on the . Apparently, she had postoperative blood loss, for which she was transfused and returned to the operating room. Blood was evacuated and abdominal bleeding was controlled. She received a total of 5 units of packed red blood cells and 2 units of FFP. She was placed in the intermediate care unit. She did not feel well yesterday when she was postoperative day #4, but today she feels much better. She tells me she is tolerating her diet, is urinating well and has had bowel function. PHYSICAL EXAMINATION: VITAL SIGNS: On examination, she is afebrile. Pulse is 69, blood pressure is elevated at 173/87. LUNGS: Clear to auscultation. ABDOMEN: Benign and has normal bowel sounds. LABORATORY DATA: Labs reveal stable hemoglobin level of 9.3 (up from 8.8 yesterday morning). She appears to be stable for discharge as there is no further evidence of bleeding problems. She is very comfortable and breathing on room air and tolerating her regular bariatric diet. She is discharged home today with instructions to follow up with Dr. Junior later this week for suture removal from her toe amputation site. She has been given a discharge prescription for [place] and instructed to resume all of her home medications. Job ID: [id number]
--- NOTE | 2018-07-23 14:08 | PQF ---
GERARDO JUÁREZ RICHARD D MD [id number] [place] [id number] CLINICAL DOCUMENTATION IMPROVEMENT CLARIFICATION FORM: ICD-10 Updated PLEASE DO AN ADDENDUM TO THE PROGRESS NOTE WITH ANY DOCUMENTATION UPDATES OR ADDITIONS AND CARRY THROUGH TO DC SUMMARY. THANK YOU. DATE: 07-23-18 ATTN: DR. CEJA Please exercise your independent, professional judgment in responding to the clarification form. Clinical indicators are provided on the bottom of this form for your review Please check appropriate box(s): In the description of the operative procedure on 07-20 a hematoma and one focus of oozing in the [employer] DevelopmentDirector Of Pulmonary Unit Crystal Reports Winform ViewerGERARDO JUÁREZ RICHARD D MD [id number] [place] [address] [id number] CLINICAL DOCUMENTATION IMPROVEMENT CLARIFICATION FORM: ICD-10 Updated PLEASE DO AN ADDENDUM TO THE PROGRESS NOTE WITH ANY DOCUMENTATION UPDATES OR ADDITIONS AND CARRY THROUGH TO DC SUMMARY. THANK YOU. DATE: 07-23-18 ATTN: DR. CEJA Please exercise your independent, professional judgment in responding to the clarification form. Clinical indicators are provided on the bottom of this form for your review Please check appropriate box(s): In the description of the operative procedure on 07-20 a hematoma and one focus of oozing in the upper midline abdomen, but no active bleeding discovered was noted by the surgeon. If possible would you please further clarify if this was: [ ] Incidental occurrence inherent in the surgical procedure due to lysis of adhesions [ ] Complication of the procedure [ ] Other [ ] Unable to determine For continuity of documentation, please document condition throughout progress notes and discharge summary. Thank You. CLINICAL INDICATORS - SIGNS / SYMPTOMS / LABS LABS: Hgb Hct 07-18 @ 1718 7.0 21.8 07-18 @ 2056 6.6 19.8 07-19 @ 0639 5.2 15.4 07-19 @ 1353 6.6 19.8 07-19 (MARCIAL): ANEMIA POSTOPERATIVELY 07-20 OP NOTE (MARCIAL): POSTOPERATIVE BLEEDING AFTER ROOTIC INCISIONAL HERNIA REPAIR, UPPER ABDOMEN W/ MOSTLY HEMATOMA AND ONE FOCUS OF OOZING IN THE UPPER MIDLINE ABDOMEN, BUT NO ACTIVE BLEEDING DISCOVERED. 07-22 (CAROLYN): INTRAOPERATIVE BLEED FOR WHICH SHE REQUIRED AN EMERGENCY LAPAROSCOPIC OPERATION ON THE SAME DAY TO CONTROL BLEEDING. TRANSFUSED W/ A TOTAL OF 5 UNITS. RISK FACTORS 11-13 (MARCIAL): HX OPEN HORACE-EN-Y GASTRIC BYPASS - NOW WITH INCISIONAL HERNIA 07-18 OP NOTE (MARCIAL): ROBOTIC LYSIS OF ADHESIONS W/ PRIMARY REPAIR OF INCISIONAL HERNIA AND REINFORCEMENT W/ MESH TREATMENTS: 07-20 OP NOTE (MARCIAL): DIAGNOSTIC LAPAROSCOPY, LAPAROSCOPIC EVACUATION OF OLD BLOOD, LAPAROSCOPIC ABDOMINAL WASHOUT, AND PLACEMENT OF JESSICA. BLEEDING CONTROLLED W/ THE LIGASURE, THIS WAS A SMALL OOZE AND QUESTIONABLE SIGNIFICANT. OLD CLOT WAS REMOVED. CAREFUL INSPECTION , PROLONGED INSPECTION CARRIED OUT NOTING ABSENCE OF ANY MAJOR BLEEDING. MAR: 5 UNITS LEUKOCYTE-REDUCED RED BLD CELLS 2 UNTIS FRESH FROZEN PLASMA THANK YOU , CHELI (This form is maintained as a part of the permanent medical record) 2015 [employer]. All Rights Reserved Cheli Mcallister RN, [email or web address] Cell [facility]
[2018-07-23] MEDS: Sodium Chloride 0.9% 1,000 ML IV SCH (14:12)
--- NOTE | 2018-07-23 14:13 | PQF ---
GERARDO JUÁREZ, ROMY Faye MD [id number] [facility]- B11 [id number] CLINICAL DOCUMENTATION IMPROVEMENT CLARIFICATION FORM: ICD-10 Updated PLEASE DO AN ADDENDUM TO THE PROGRESS NOTE WITH ANY DOCUMENTATION UPDATES OR ADDITIONS AND CARRY THROUGH TO DC SUMMARY. THANK YOU. DATE: 07-23-18 ATTN: DR. CEJA Please exercise your independent, professional judgment in responding to the clarification form. Clinical indicators are provided on the bottom of this form for your review Please check appropriate box(s): [ ] Acute blood loss anemia [ ] Post-op anemia related to acute blood loss [ ] Other diagnosis [ ] Unable to determine In addition, please specify: Present on Admission (POA): [ ] Yes [ ] No [ ] Unable to determine For continuity of documentation, please document condition throughout progress notes and discharge summary. Thank You. CLINICAL INDICATORS - SIGNS / SYMPTOMS / LABS LABS: Hgb Hct 07-18 @ 1718 7.0 21.8 07-18 @ 2056 6.6 19.8 07-19 @ 0639 5.2 15.4 07-19 @ 1353 6.6 19.8 07-19 (MARCIAL): ANEMIA POSTOPERATIVELY 07-20 OP NOTE (MARCIAL): POSTOPERATIVE BLEEDING AFTER ROBOTIC INCISIONAL HERNIA REPAIR, UPPER ABDOMEN W/ MOSTLY HEMATOMA AND ONE FOCUS OF OOZING IN THE UPPER MIDLINE ABDOMEN, BUT NO ACTIVE BLEEDING DISCOVERED. 07-21 (LANDON): ACUTE BLD LOSS ANEMIA - ELECTIVE REPAIR OF INCISIONAL HERNIA, FOLLOWED BY POSTOP BLEED, S/P LAPAROTOMY AND REPAIR 07-22 (CAROLYN): INTRAOPERATIVE BLEED FOR WHICH SHE REQUIRED AN EMERGENCY LAPAROSCOPIC OPERATION ON THE SAME DAY TO CONTROL BLEEDING. RISK FACTORS 06-05 (MARCIAL): HX OPEN HORACE-EN-Y GASTRIC BYPASS - NOW WITH INCISIONAL HERNIA 07-18 OP NOTE (MARCIAL): ROBOTIC LYSIS OF ADHESIONS W/ PRIMARY REPAIR OF INCISIONAL HERNIA AND REINFORCEMENT W/ MESH TREATMENTS: 07-20 OP NOTE (MARCIAL): DIAGNOSTIC LAPAROSCOPY, LAPAROSCOPIC EVACUATION OF OLD BLOOD, LAPAROSCOPIC ABDOMINAL WASHOUT, AND PLACEMENT OF JESSICA. BLEEDING CONTROLLED W/ THE LIGASURE, THIS WAS A SMALL OOZE AND QUESTIONABLE SIGNIFICANT. OLD CLOT WAS REMOVED. CAREFUL INSPECTION , PROLONGED INSPECTION CARRIED OUT NOTING ABSENCE OF ANY MAJOR BLEEDING. MAR: 5 UNITS LEUKOCYTE-REDUCED RED BLD CELLS 2 UNTIS FRESH FROZEN PLASMA THANK YOU , CHELI (This form is maintained as a part of the permanent medical record) 2014 [employer]. All Rights Reserved Cheli Mcallister RN, [email or web address] Cell [facility]
[2018-07-23 15:27] VITALS: BP 146/70; TEMP 99.6
--- NOTE | 2018-07-25 09:34 | PQF ---
GERARDO JUÁREZ RICHARD D MD [id number] [facility]- B11 [id number] CLINICAL DOCUMENTATION IMPROVEMENT CLARIFICATION FORM: ICD-10 Updated PLEASE DO AN ADDENDUM TO THE PROGRESS NOTE WITH ANY DOCUMENTATION UPDATES OR ADDITIONS AND CARRY THROUGH TO DC SUMMARY. THANK YOU. DATE: 07-23-18 ATTN: DR. CEJA Please exercise your independent, professional judgment in responding to the clarification form. Clinical indicators are provided on the bottom of this form for your review Please check appropriate box(s): In the description of the operative procedure on 07-20 a hematoma and one focus of oozing in the uppermidline abdomen, but no active bleeding discovered was noted by the surgeon - repair from previous surgery. If possible would you please further clarify if this was: [ ] Incidental occurrence inherent in the surgical procedure due to lysis of adhesions [ ] Complication of the procedure [ ] Other [ ] Unable to determine For continuity of documentation, please document condition throughout progress notes and discharge summary. Thank You. CLINICAL INDICATORS - SIGNS / SYMPTOMS / LABS LABS: Hgb Hct 07-18 @ 1718 7.0 21.8 07-18 @ 2056 6.6 19.8 07-19 @ 0639 5.2 15.4 07-19 @ 1353 6.6 19.8 07-19 (MARCIAL): ANEMIA POSTOPERATIVELY 07-20 OP NOTE (MARCIAL): POSTOPERATIVE BLEEDING AFTER ROOTIC INCISIONAL HERNIA REPAIR, UPPER ABDOMEND W/ MOSTLY HEMATOMA AND ONE FOCUS OF OOZING IN THE UPPER MIDLINE ABDOMEN, BUT NO ACTIVE BLEEING DISCOVERED. 07-22 (CAROLYN): INTRAOPERATIVE BLEED FOR WHICH SHE REQUIRED AN EMERGENCY LAPAROSCOPIC OPERATION ON THE SAME DAY TO CONTROL BLEEDING. TRANSFUSED W/ A TOTAL OF 5 UNITS. RISK FACTORS 06-05 (MARCIAL): HX OPEN HORACE-EN-Y GASTRIC BYPASS - NOW WITH INCISIONAL HERNIA 07-18 OP NOTE (MARCIAL): ROBOTIC LYSIS OF ADHESIONS W/ PRIMARY REPAIR OF INCISIONAL HERNIA AND REINFORCEMENT W/ MESH TREATMENTS: 07-20 OP NOTE (MARCIAL): DIAGNOSTIC LAPAROSCOPY, LAPAROSCOPIC EVACUATION OF OLD BLOOD, LAPAROSCOPIC ABDOMINAL WASHOUT, AND PLACEMENT OF JESSICA. BLEEDING CONTROLLED W/ THE LIGASURE, THIS WAS A SMALL OOZE AND QUESTIONABLE SIGNIFICANT. OLD CLOT WAS REMOVED. CAREFUL INSPECTION , PROLONGED INSPECTION CARRIED OUT NOTING ABSENCE OF ANY MAJOR BLEEDING. MAR: 5 UNITS LEUKOCYTE-REDUCED RED BLD CELLS 2 UNTIS FRESH FROZEN PLASMA THANK YOU, CHELI (This form is maintained as a part of the permanent medical record) 2015 [employer]. All Rights Reserved Cheli Mcallister RN, [email or web address] Cell [facility]
--- NOTE | 2018-07-25 09:35 | PQF ---
GERARDO JUÁREZ, ROMY Faye MD [id number] [facility]- B11 [id number] CLINICAL DOCUMENTATION IMPROVEMENT CLARIFICATION FORM: ICD-10 Updated PLEASE DO AN ADDENDUM TO THE PROGRESS NOTE WITH ANY DOCUMENTATION UPDATES OR ADDITIONS AND CARRY THROUGH TO DC SUMMARY. THANK YOU. DATE: 07-23-18 ATTN: DR. CEJA Please exercise your independent, professional judgment in responding to the clarification form. Clinical indicators are provided on the bottom of this form for your review Please check appropriate box(s): [ ] Acute blood loss anemia [ ] Post-op anemia related to acute blood loss [ ] Chronic Anemia: [ ] Blood loss [ ] Other [ ] Other diagnosis [ ] Unable to determine In addition, please specify: Present on Admission (POA): [ ] Yes [ ] No [ ] Unable to determine For continuity of documentation, please document condition throughout progress notes and discharge summary. Thank You. CLINICAL INDICATORS - SIGNS / SYMPTOMS / LABS LABS: Hgb Hct 07-18 @ 1718 7.0 21.8 07-18 @ 2056 6.6 19.8 07-19 @ 0639 5.2 15.4 07-19 @ 1353 6.6 19.8 07-19 (MARCIAL): ANEMIA POSTOPERATIVELY 07-20 OP NOTE (MARCIAL): POSTOPERATIVE BLEEDING AFTER ROOTIC INCISIONAL HERNIA REPAIR, UPPER ABDOMEN W/ MOSTLY HEMATOMA AND ONE FOCUS OF OOZING IN THE UPPER MIDLINE ABDOMEN, BUT NO ACTIVE BLEEDING DISCOVERED. 07-21 (LANDON): ACUTE BLD LOSS ANEMIA - ELECTIVE REPAIR OF INCISIONAL HERNIA, FOLLOWED BY POSTOP BLEED, S/P LAPAROTOMY AND REPAIR 07-22 (CAROLYN): INTRAOPERATIVE BLEED FOR WHICH SHE REQUIRED AN EMERGENCY LAPAROSCOPIC OPERATION ON THE SAME DAY TO CONTROL BLEEDING. RISK FACTORS 06-05 (MARCIAL): HX OPEN HORACE-EN-Y GASTRIC BYPASS - NOW WITH INCISIONAL HERNIA 07-18 OP NOTE (MARCIAL): ROBOTIC LYSIS OF ADHESIONS W/ PRIMARY REPAIR OF INCISIONAL HERNIA AND REINFORCEMENT W/ MESH TREATMENTS: 07-20 OP NOTE (MARCIAL): DIAGNOSTIC LAPAROSCOPY, LAPAROSCOPIC EVACUATION OF OLD BLOOD, LAPAROSCOPIC ABDOMINAL WASHOUT, AND PLACEMENT OF JESSICA. BLEEDING CONTROLLED W/ THE LIGASURE, THIS WAS A SMALL OOZE AND QUESTIONABLE SIGNIFICANT. OLD CLOT WAS REMOVED. CAREFUL INSPECTION , PROLONGED INSPECTION CARRIED OUT NOTING ABSENCE OF ANY MAJOR BLEEDING. MAR: 5 UNITS LEUKOCYTE-REDUCED RED BLD CELLS 2 UNTIS FRESH FROZEN PLASMA THANK YOU , CHELI (This form is maintained as a part of the permanent medical record) 2015 [email or web address]. All Rights Reserved Cheli Mcallister RN, [email or web address] Cell [facility]
== END 2018-07-23 17:49 | disposition home or self-care (01) | DRG 335 ==
LOC: SDC 05:44 → OBSVTOIN 17:37 → SURG A 17:37 → IMCU/EMU 07-20 02:18
PROVIDERS: ADMIT Specialist; ATTEND Specialist
PROC: 0WUF4JZ Supplement Abdominal Wall with Synthetic Substitute, Percutaneous Endoscopic Approach (ICD-10-PCS; principal; 2018-07-18)
PROC: 0DNU4ZZ Release Omentum, Percutaneous Endoscopic Approach (ICD-10-PCS; 2018-07-18)
PROC: 8E0W4CZ Robotic Assisted Procedure of Trunk Region, Percutaneous Endoscopic Approach (ICD-10-PCS; 2018-07-18)
PROC: 05H633Z Insertion of Infusion Device into Left Subclavian Vein, Percutaneous Approach (ICD-10-PCS; 2018-07-20)
PROC: 0WCJ4ZZ Extirpation of Matter from Pelvic Cavity, Percutaneous Endoscopic Approach (ICD-10-PCS; 2018-07-20)
PROC: 0W3F4ZZ Control Bleeding in Abdominal Wall, Percutaneous Endoscopic Approach (ICD-10-PCS; 2018-07-20)
PROC: 30233N1 Transfusion of Nonautologous Red Blood Cells into Peripheral Vein, Percutaneous Approach (ICD-10-PCS; 2018-07-20)
PROC: 30233K1 Transfusion of Nonautologous Frozen Plasma into Peripheral Vein, Percutaneous Approach (ICD-10-PCS; 2018-07-20)
DX: K43.2 Incisional hernia without obstruction or gangrene (principal); J96.01 Acute respiratory failure with hypoxia; N17.9 Acute kidney failure, unspecified; D62 Acute posthemorrhagic anemia; K91.841 Postprocedural hemorrhage of a digestive system organ or structure following other procedure; K91.871 Postprocedural hematoma of a digestive system organ or structure following other procedure; I25.10 Atherosclerotic heart disease of native coronary artery without angina pectoris; E11.9 Type 2 diabetes mellitus without complications; E78.5 Hyperlipidemia, unspecified; K66.0 Peritoneal adhesions (postprocedural) (postinfection); Z86.73 Personal history of transient ischemic attack (TIA), and cerebral infarction without residual deficits; Z88.0 Allergy status to penicillin; Z79.02 Long term (current) use of antithrombotics/antiplatelets; Z79.82 Long term (current) use of aspirin; Z79.899 Other long term (current) drug therapy; Z98.84 Bariatric surgery status; Y83.8 Other surgical procedures as the cause of abnormal reaction of the patient, or of later complication, without mention of misadventure at the time of the procedure; Y92.239 Unspecified place in hospital as the place of occurrence of the external cause
CPT/HCPCS: 36415; 36416; 36430; 71045; 80048; 80053; 83036; 83735; 84100; 85014; 85018; 85025; 85610; 86850; 86900; 86901; 96374; G8978-GP-CJ; G8979-GP-CJ; G8980-GP-CJ; J0131; J0360; J0670; J1100; J1885; J1940; J1956; J2001; J2250; J2270; J2405; J2704; J3010; J7050; P9016; P9059

== ENCOUNTER 2018-09-15 18:04 | Inpatient (IN) | payer OTHER ==
[2018-09-15 19:07] LABS: #Lymphocytes 1.4 thou/uL (1.20-3.40); #Monocytes 0.5 thou/uL (0.11-0.59); %Basophils 0.3 % (0.0-1.0); %Eosinophils 0.4 % (0.0-10.0); %Neutrophils 75.2 % (42.0-75.0); Mean Corpuscular HGB CONC 31.8 g/dL (32.0-36.0); Mean Corpuscular Hemoglobin 28.8 pg (27.0-31.0); Mean Corpuscular Volume 90.5 fL (78.0-98.0); Mean Platelet Volume 10.4 fL (7.4-10.4); Platelet Count 168 thou/uL (130-400); RBC Distribution Width 12.5 % (11.5-14.5); Red Blood Cell (RBC) Count 3.83 mill/uL (4.20-5.40)
[2018-09-15 19:28] LABS: ALT (SGPT) 16 U/L (8-55); AST (SGOT) 19 U/L (5-34); Albumin 3.2 g/dL (3.5-5.0); Alkaline Phosphatase 107 U/L (40-150); Anion Gap 15 mmol/L (10-20); BUN (Urea Nitrogen) 14 mg/dL (7.0-18.7); Bilirubin, Total 0.4 mg/dL (0.2-1.2); Calc. Creatinine Clearance 0 mL/min (70-130); Calcium 8.2 mg/dL (7.8-10.44); Carbon Dioxide 20 mmol/L (22-29); Chloride 104 mmol/L (98-107); Estimated GFR-MDRD 55; Globulin 2.8 g/dL (2.4-3.5); Glucose 122 mg/dL (70-105); Potassium 3.9 mmol/L (3.5-5.1); Sodium 135 mmol/L (136-145)
--- NOTE | 2018-09-15 19:43 | RAD ---
ONE VIEW CHEST: 09/15/18 HISTORY: Fever. Dyspnea. Weight gain. COMPARISON: 07/20/18. FINDINGS: Enlarged cardiac silhouette. Pulmonary vessels are within normal limits. There are bilateral intersti tial and alveolar infiltrates, right slightly greater than left. There is no pneumothorax or osseous abnormalities. IMPRESSION: 1. Cardiomegaly. 2. Interstitial and alveolar infiltrates. Correlate for edema. POS: PPP
[2018-09-15] MEDS ORDERED: Furosemide 40 MG/4 ML VIAL ONE (19:57)
[2018-09-15 20:56] LABS: Bilirubin Negative (Negative); Blood, Urine Small (Negative); Clarity CLEAR (Clear); Glucose, Urine (Dipstick) Negative (Negative); Leukocyte Negative (Negative); Nitrite Negative (Negative); Protein, Urine (Dipstick) 100 mg/dL (Neg-Trace)
[2018-09-15 20:57] LABS: Bacteria/HPF None Seen HPF (None Seen); Hyaline Casts/LPF 0-3 HYALINE CAST LPF (0-3 Hyaline); Pathc Cast-AUWi Flag 0.14 (0-2.49); Squamous Epithelial 0-3 HPF (0-3); WBC/HPF None Seen HPF (0-3)
--- NOTE | 2018-09-15 22:33 | HP ---
PRIMARY CARE PHYSICIAN: Dr. Danica Zarate. CHIEF COMPLAINT: Shortness of breath. HISTORY OF PRESENT ILLNESS: Ms. Ileana De Leon is a 47-year-old female with past medical history of diabetes type 2, coronary artery disease status post stenting , hypertension, hyperlipidemia, TIA, CVA, who presents to the emergency department with her friend for her shortness of breath. The patient reports that her shortness of breath has been going on for the past week and has been getting worse over the last night. The patient also reports that her weight has increased from 150s to 170s pounds. The patient denies any previous history of congestive heart failure. The patient's only water pill is the hydrochlorothiazide which she has been taking for her blood pressure. The patient denies any chest pain at this point. The patient reports that her shortness of breath has improved, but she still has some. The patient reports compliant with her medication. The patient lives with her friend. Pt reports chronic diarrhea, take imodium and f/u with GI. Pt also reports ear and throat aches ALLERGIES: PENICILLIN. CURRENT MEDICATIONS: 1. Aspirin. 2. Lisinopril. 3. Hydrochlorothiazide. 4. Amlodipine. 5. Plavix. 6. Buspirone. 7. Multivitamin. 8. Iron. 9. Metoprolol. 10. Plavix. 11. Probiotics. PAST MEDICAL HISTORY: Diabetes type 2, CAD, hypertension, TIA. PAST SURGICAL HISTORY: Amputation of her toes, cholecystectomy, , and gastric bypass. SOCIAL HISTORY: The patient denies alcohol, drug use, or smoking. FAMILY HISTORY: Positive for hypertension, diabetes, and heart problems. REVIEW OF SYSTEMS: A 10-point review of systems negative other than mentioned in the HPI. PHYSICAL EXAMINATION: VITAL SIGNS: Blood pressure 189/132, pulse 76, respiration rate 20, and 90% O2 saturation on room air, temperature 99.2. GENERAL: The patient is alert. HEAD: Atraumatic. EARS: No exudate or erythema noted. Non-tender NOSE: No drainage noted. MOUTH: No exudate noted. NECK: No lymphadenopathy noted. CARDIOVASCULAR: Regular rate and rhythm. No murmur, rubs, or gallops. RESPIRATORY: The patient noted to have a faint at lower right side, otherwise no wheezes noted. ABDOMEN: Soft, nontender. Bowel sounds positive. EXTREMITIES: Lower extremities, 4+ pitting edema in bilateral lower extremities with erythema noted. SKIN: Other than mentioned in the HPI, negative. NEUROLOGICAL: The patient is alert. LABORATORY DATA: CBC: White blood cell count 8.0, hemoglobin 11, hematocrit 34.7, and platelets 168. Chemistry; sodium 135, potassium 3.9, chloride 104, carbon dioxide 20, BUN 14, creatinine 1.08, glucose 122. Lactic acid 1.1. Troponin 0.02. BNP 1603. UA negative for leukocyte esterase, nitrites, and bacteria. Chest x-ray of the patient reviewed and is significant for cardiomegaly, interstitial and alveolar infiltrate correlate for edema. EKG per ER report, cannot rule out septal infarct, age undetermined. Moderate voltage criteria for LVH. FL interval 194 milliseconds. QT, QTc 438/499. ASSESSMENT: 1. Acute congestive heart failure, unknown type and cause known at this point; but I think given the patient's extensive cardiac history, this could be related to ischemic cardiomyopathy. 2. Bilateral lower extremity edema, likely from acute congestive heart failure. 3. Diabetes. 4. Chronic diarrhea. The patient reports that she had chronic diarrhea all the time and she is taking Imodium. Follows up with GI. 5. Hypertension. BP elevated on admission. 6. Acute shortness of breath. The patient was on nasal cannula, but now is breathing well on room air. 7. Coronary artery disease. PLAN: 1. The patient has likely new diagnosis of congestive heart failure. The patient was given Lasix 40 mg IV in the ER. We will continue Lasix 40 IV b.i.d. Echocardiogram order placed. Last echo in the system from 2014 with ejection fraction of 50% to 55%. Cardiology consult has been ordered. Fluid restriction and sodium restriction. 2. Ultrasound of bilateral lower extremity placed to rule out DVT. 3. Continue home medications once they are verified. 4. We will add hydralazine p.r.n. 5. DuoNebs and oxygen p.r.n. 6. The patient seems to have chronic diarrhea and does follow up with GI. We will leave it up to day team to decide whether they want to consult GI during the admission or cont outpatient f/u. The patient does not seem to be in acute distress during my evaluation. 7. The patient is a full code. 8. DVT prophylaxis addressed. 9. Medical power of managing attorney. The patient has a son that is 19-year-old. She wants her friend to be the medical power of managing attorney, but did not have any official paperwork completed. The patient and friend advised to complete paperwork for medical power of managing attorney. Job ID: [id number] MTDD
[2018-09-15 22:45] LABS: Troponin I 0.025 ng/mL (< 0.028)
[2018-09-15] MEDS ORDERED: Dextrose 5% in Water 1,000 ML IV PRN (22:55)
[2018-09-15] MEDS ORDERED: Acetaminophen 325 MG TAB PO PRN (22:55)
[2018-09-15] MEDS ORDERED: Ondansetron PF 4 MG/2 ML Vial IVP PRN (22:55)
[2018-09-15] MEDS ORDERED: HYDROcodone/Acetaminophen 5/325 mg Tablet PO PRN (22:55)
[2018-09-15] MEDS ORDERED: Dextrose 50% Abboject 50 ML SYRINGE SLOW IVP PRN (22:55)
[2018-09-15] MEDS ORDERED: hydrALAZINE 20 MG/ML VIAL SLOW IVP PRN (22:55)
[2018-09-15] MEDS ORDERED: hydrALAZINE 20 MG/ML VIAL SLOW IVP SCH (23:50)
[2018-09-15] MEDS ORDERED: Sodium Chloride 0.9% 10 ML ONE (23:59)
[2018-09-16 02:04] LABS: Troponin I 0.013 ng/mL (< 0.028)
[2018-09-16 05:23] LABS: #Basophils 0.1 thou/uL (0.0-0.2); #Eosinphils 0.1 thou/uL (0.0-0.7); #Lymphocytes 1.7 thou/uL (1.20-3.40); #Monocytes 0.5 thou/uL (0.11-0.59); %Basophils 0.9 % (0.0-1.0); %Lymphocytes 27.6 % (21.0-51.0); %Monocytes 7.9 % (0.0-10.0); %Neutrophils 62.7 % (42.0-75.0); Hemoglobin 10.3 g/dL (12.0-16.0); Mean Corpuscular HGB CONC 32.3 g/dL (32.0-36.0); Mean Corpuscular Volume 89.9 fL (78.0-98.0); Mean Platelet Volume 10.8 fL (7.4-10.4); Platelet Count 165 thou/uL (130-400); RBC Distribution Width 12.4 % (11.5-14.5); Red Blood Cell (RBC) Count 3.55 mill/uL (4.20-5.40); White Blood Cell (WBC) Count 6.3 thou/uL (4.8-10.8)
[2018-09-16] MEDS ORDERED: Sodium Chloride 0.9% 10 ML ONE ×2 (05:40→20:08)
[2018-09-16 05:42] LABS: Anion Gap 14 mmol/L (10-20); BUN (Urea Nitrogen) 18 mg/dL (7.0-18.7); Calc. Creatinine Clearance 74 mL/min (70-130); Calcium 8.5 mg/dL (7.8-10.44); Carbon Dioxide 21 mmol/L (22-29); Chloride 104 mmol/L (98-107); Estimated GFR-MDRD 49; Glucose 145 mg/dL (70-105); Magnesium 1.4 mg/dL (1.6-2.6); Potassium 3.4 mmol/L (3.5-5.1); Sodium 136 mmol/L (136-145)
[2018-09-16] MEDS: Furosemide 40 MG/4 ML VIAL SLOW IVP SCH ×2 (06:36→14:38)
[2018-09-16 08:35] LABS: Anion Gap 14 mmol/L (10-20); BUN (Urea Nitrogen) 17 mg/dL (7.0-18.7); Calc. Creatinine Clearance 75 mL/min (70-130); Calcium 8.6 mg/dL (7.8-10.44); Carbon Dioxide 24 mmol/L (22-29); Chloride 104 mmol/L (98-107); Estimated GFR-MDRD 50; Glucose 132 mg/dL (70-105); Potassium 3.5 mmol/L (3.5-5.1); Sodium 138 mmol/L (136-145)
[2018-09-16] MEDS: Aspirin Chewable 81 MG TAB PO SCH (09:07)
[2018-09-16] MEDS: Enoxaparin Sodium 40 MG/0.4 ML SYRINGE SC SCH (09:07)
--- NOTE | 2018-09-16 10:24 | ULT ---
BILATERAL LOWER EXTREMITY VENOUS ULTRASOUND WITH DOPPLER: HISTORY: Edema and swelling. COMPARISON: 03/13/2016. TECHNIQUE: Arana scale, color flow, Doppler imaging, and spectral waveform analysis performed of the left and rig ht lower extremity venous systems. FINDINGS: Bilaterally, there is compressibility, presence of flow, and augmentation in the common femoral vein, profunda vein, and popliteal vein. There is flow in bilateral greater saphenous veins, profunda vei ns, and posterior tibial veins. There is soft tissue edema at the level of the left and right adobe ball mixer ior tibial veins. IMPRESSION: 1. No evidence of deep vein thrombus in the left or right lower extremity deep venous system. 2. Bilateral lower extremity soft tissue edema. POS: [facility]
--- NOTE | 2018-09-16 16:37 | PDOC.PN ---
- Subjective Encounter Start Date: 09/16/18 Encounter Start Time: 16:25 Subjective: f/u for diast CHF exacerbation EF 55%. Feels better overall and no SOB. -: Swelling LE's less. - Objective Resuscitation Status - Order Detail: 09/15/18 21:44 Resuscitation Status Routine Resuscitation Status: FULL: Full Resuscitation MAR Reviewed: Yes Vital Signs & Weight: Vital Signs (12 hours) Temp Pulse Resp BP Pulse Ox 09/16/18 12:00 98.4 F 64 19 163/70 H 94 L 09/16/18 11:55 183/85 H 09/16/18 11:53 70 09/16/18 08:00 97.5 F L 70 18 181/77 H 95 09/16/18 06:45 70 22 H 93 L 09/16/18 06:41 71 20 87 L Weight Weight 173 lb 11.2 oz I&O: 09/15/18 09/16/18 09/17/18 06:59 06:59 06:59 Intake Total 144 Output Total 1100 1100 Balance -956 -1100 Result Diagrams: 09/16/18 04:54 09/16/18 07:58 Additional Labs: Accuchecks 09/16/18 11:08 POC Glucose 157 H Microbiology 09/16/18 04:42 Stool C. difficile GDH Antigen & Toxins - Final Laboratory Tests 11/24/14 09/15/18 09/15/18 20:10 18:53 18:53 Hgb 11.0 L Potassium Creatinine Magnesium B-Natriuretic Peptide 179.0 H 1603.6 H 09/16/18 09/16/18 04:54 04:54 Hgb Potassium 3.4 L Creatinine 1.19 H Magnesium 1.4 L B-Natriuretic Peptide 1442.9 H Radiology Reviewed by me: Yes (2D echo - EF 55-60%, II/III diast dysfxn) EKG Reviewed by me: Yes (Tele - SR) Phys Exam - Physical Examination Constitutional: NAD HEENT: PERRLA, sclera anicteric, oral pharynx no lesions Neck: no nodes, no JVD, supple, full ROM few basilar crackles Respiratory: no wheezing, no rhonchi S1, S2 Cardiovascular: RRR, no significant murmur, no rub, gallop Gastrointestinal: soft, non-tender, no distention, positive bowel sounds Musculoskeletal: pulses present, edema present Neurological: normal sensation, moves all 4 limbs Psychiatric: A&O x 3 Skin: normal turgor, cap refill <2 seconds Dx/Plan (1) Acute diastolic CHF (congestive heart failure), NYHA class 2 Code(s): I50.31 - ACUTE DIASTOLIC (CONGESTIVE) HEART FAILURE Status: Acute Comment: EF 55-60% with diastolic dysfunction, continue Lasix 40mg IV BID, monitor I/O's and daily weight, outpt referral to HF clinic (2) CAD (coronary artery disease) Code(s): I25.10 - ATHSCL HEART DISEASE OF [place] CORONARY ARTERY W/O ANG PCTRS Status: Chronic Qualifiers: Coronary Disease-Associated Artery/Lesion type: [place] artery [place] vs. transplanted heart: [place] heart Associated angina: without angina Qualified Code(s): I25.10 - Atherosclerotic heart disease of [place] coronary artery without angina pectoris Comment: Continue ASA/Plavix, Metoprolol (3) DM type 2 (diabetes mellitus, type 2) Status: Chronic Qualifiers: Diabetes mellitus termite inspector insulin use: with shelter use Diabetes mellitus complication status: with circulatory complication Diabetes mellitus complication detail: with other circulatory complications Qualified Code(s): E11.59 - Type 2 diabetes mellitus with other circulatory complications; Z79.4 - emt intermediate (current) use of insulin Comment: ISS, ADA (4) Hypertension Code(s): I10 - ESSENTIAL (PRIMARY) HYPERTENSION Status: Chronic Qualifiers: Hypertension type: essential hypertension Qualified Code(s): I10 - Essential (primary) hypertension Comment: Labile, Resume home BP regimen, serial monitoring and titrate to optimal response - Plan foster care social worker, out of bed/ambulate Stable currently -: Continue ASA/Plavix -: Continue Lasix 40mg IV BID -: Dietitian/HF clinic referral -: AM lab: BMP * .
--- NOTE | 2018-09-16 17:41 | CON ---
DATE OF CONSULTATION: 09/16/2018 [facility]IMARY [facility] HOME MOTHER: eMir Rice MD. REASON FOR CONSULTATION: Shortness of breath. HISTORY OF PRESENT ILLNESS: Ms. De Leon is a 47-year-old white female, who comes to the hospital for increasing shortness of breath. She has noted a 20 pounds weight gain in the last few weeks accompanied with increased shortness of breath, so she decided to come in for further evaluation. She has been seen in the past for a preoperative evaluation for hernia repair. She had stents in 2002 up in [place] and recently moved to this area, so established care with me a few months ago. She had her hernia surgery without any issues. She comes in for worsening shortness of breath. She received a dose of Lasix and she has already noticed a slight improvement in her symptoms. PAST MEDICAL HISTORY: 1. Type 2 diabetes. 2. Coronary artery disease, status post stenting in 2002. 3. Hypertension. 4. Transient ischemic attack/cerebrovascular accident in the past. 5. Hyperlipidemia. OUTPATIENT MEDICATIONS: Include; 1. BuSpar 10 mg b.i.d. 2. Simethicone. 3. Paroxetine. 4. Multivitamin daily. 5. Metoprolol tartrate 25 mg b.i.d. 6. Loperamide. 7. Lisinopril-hydrochlorothiazide 20/25 b.i.d. 8. Probiotics. 9. Ferrous sulfate. 10. Plavix 75 mg a day. 11. Vitamin D3. 12. Coricidin HBP for cough and cold. 13. Calcium carbonate. 14. Aspirin 81 a day. 15. Amlodipine 10 mg daily. ALLERGIES: PENICILLIN GIVES HER ANAPHYLAXIS. SOCIAL HISTORY: No alcohol, tobacco, or drugs. FAMILY HISTORY: Positive for early coronary artery disease. REVIEW OF SYSTEMS: A 12-point review of systems was done and was found to be negative unless stated in the history of present illness. PAST SURGICAL HISTORY: 1. 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 2. Cholecystectomy. 3. . 4. Gastric bypass with weight loss. PHYSICAL EXAMINATION: VITAL SIGNS: Temperature 98.4, pulse 64, respiratory rate 19, saturating 94% on 2 L, and blood pressure 163/70. GENERAL: Awake, alert, and oriented x3. No distress. HEENT: Normocephalic and atraumatic. NECK: Supple. LUNGS: Clear. CARDIOVASCULAR: S1 and S2. No S3 or S4. No murmurs. ABDOMEN: Soft. Positive bowel sounds. EXTREMITIES: 1+ edema. SKIN: Warm and dry. LABORATORY DATA: Laboratory work was reviewed. CBC with a white count of 6.3, hemoglobin 10.3, hematocrit 31, and platelet count of 165. Chemistries were reviewed. Potassium was low, but has been replaced. Creatinine is 1.18, stable. GFR 50. BNP was 1442. Troponin was negative x3. UA was unremarkable. EKG was reviewed. Chest x-ray was reviewed. Echocardiogram showed an EF of 55% to 60%. There is a grade 2/3 diastolic dysfunction. Right ventricular systolic pressure elevated at 46 with mild PI and moderate TR. ASSESSMENT: 1. Acute on chronic diastolic heart failure. 2. Coronary artery disease by history. No evidence of ACS. PLAN: 1. Continue IV diuresis. She already is having some relief of her symptoms on current dose of Lasix at 40 mg IV twice a day. 2. Continue home medication. Try to keep her blood pressure under 160. We may need to up titrate some of her medications. Currently, we will try to get her out of heart failure before up titrating medications as this most likely will improve her blood pressure as well. Thank you for letting us to participate in the care of your patient. We will follow. Job ID: [id number]
[2018-09-16] MEDS: busPIRone HCl 10 MG TAB PO SCH (20:21)
[2018-09-16] MEDS: Amlodipine 10 MG TAB PO SCH (20:21)
[2018-09-16] MEDS: Lisinopril/Hydrochlorothiazide 20/25 mg Tablet PO SCH (20:21)
[2018-09-16] MEDS: Metoprolol Tartrate 25 MG TAB PO SCH (20:21)
[2018-09-16] MEDS: Lactinex Tablet PO SCH (20:21)
[2018-09-16] MEDS ORDERED: Benzonatate 100 MG CAP PO PRN (22:52)
[2018-09-17] MEDS ORDERED: Sodium Chloride 0.9% 10 ML ONE (05:11)
[2018-09-17] MEDS: Furosemide 40 MG/4 ML VIAL SLOW IVP SCH ×2 (05:35→15:12)
[2018-09-17 05:53] LABS: Anion Gap 12 mmol/L (10-20); BUN (Urea Nitrogen) 18 mg/dL (7.0-18.7); Calc. Creatinine Clearance 76 mL/min (70-130); Carbon Dioxide 28 mmol/L (22-29); Chloride 100 mmol/L (98-107); Estimated GFR-MDRD 54; Glucose 184 mg/dL (70-105); Potassium 3.4 mmol/L (3.5-5.1); Sodium 137 mmol/L (136-145)
[2018-09-17] MEDS: Multivit, Therapeutic 1 TAB PO SCH (09:27)
[2018-09-17] MEDS: Metoprolol Tartrate 25 MG TAB PO SCH ×2 (09:27→21:15)
[2018-09-17] MEDS: Lactinex Tablet PO SCH ×2 (09:27→21:14)
[2018-09-17] MEDS: Ferrous Sulfate 325 MG TAB PO SCH (09:27)
[2018-09-17] MEDS: busPIRone HCl 10 MG TAB PO SCH ×2 (09:27→21:14)
[2018-09-17] MEDS: Aspirin 81 mg Enteric Coated Tablet PO SCH (09:27)
[2018-09-17] MEDS: Lisinopril/Hydrochlorothiazide 20/25 mg Tablet PO SCH ×2 (09:28→21:14)
[2018-09-17] MEDS: Clopidogrel Bisulfate 75 MG TAB PO SCH (09:28)
[2018-09-17] MEDS: PARoxetine CR 12.5 MG TAB PO SCH (09:28)
[2018-09-17] MEDS: Enoxaparin Sodium 40 MG/0.4 ML SYRINGE SC SCH (09:28)
[2018-09-17] MEDS: Amlodipine 10 MG TAB PO SCH ×2 (09:28→21:14)
[2018-09-17] MEDS: Aspirin Chewable 81 MG TAB PO SCH (09:28)
[2018-09-17] MEDS: Calcium Carbonate 500 MG TAB PO SCH (09:28)
[2018-09-17] MEDS: HumaLOG 300 UNITS/3 ML VIAL SC PRN ×2 (12:13→21:41)
--- NOTE | 2018-09-17 14:01 | PDOC.CTH ---
Cardiology Progress Note - Subjective She diuresed really well to 40 iv lasix. She is feeling better and her breathing is back to baseline but still has a lot of fluid on both legs. - Objective Vital Signs Temp Pulse Resp BP Pulse Ox 09/17/18 12:00 97.8 F 64 18 170/74 H 93 L 09/17/18 09:28 62 09/17/18 08:00 97.4 F L 64 16 180/77 H 92 L 09/17/18 04:40 97.4 F L 62 20 161/72 H 94 L Weight 164 lb 12.8 oz 09/16/18 09/17/18 09/18/18 06:59 06:59 06:59 Intake Total 144 1284 Output Total 1100 5400 Balance -246 -8264 - Physical Examination General/Neuro: alert & oriented x3, NAD Neck: no JVD present Lungs: CTA, unlabored respirations Heart: RRR Abdomen: NT/ND Extremities: + edema B (2+) - Telemetry Telemetry Rhythm: NSR - Labs Result Diagrams: 09/16/18 04:54 09/17/18 04:18 Troponin/CKMB Troponin I 0.013 ng/mL (< 0.028) 09/16/18 01:04 - Assessment/Plan 1. Acute on chronic diastolic heart failure. 2. Elevated RV pressures. 3. CAD, stable no ACS. 4. HTN PLAN: - Continue IV lasix today and likely tomorrow. - Will add aldactone for better BP control. - Replace K. - Will follow.
[2018-09-17 14:46] VITALS: BMI 28.3
[2018-09-17] MEDS ORDERED: Spironolactone 25 MG TAB PO SCH (15:00)
--- NOTE | 2018-09-17 18:44 | PDOC.PN ---
- Subjective Encounter Start Date: 09/17/18 Encounter Start Time: 18:15 Subjective: f/u for CHF on current IV Lasix with approx 11lb weight loss since admit -: Feels much better overall with mild residual LE edema. - Objective Resuscitation Status - Order Detail: 09/15/18 21:44 Resuscitation Status Routine Resuscitation Status: FULL: Full Resuscitation MAR Reviewed: Yes Vital Signs & Weight: Vital Signs (12 hours) Temp Pulse Resp BP Pulse Ox 09/17/18 16:00 98.5 F 56 L 18 164/67 H 92 L 09/17/18 12:00 97.8 F 64 18 170/74 H 93 L 09/17/18 09:28 62 09/17/18 08:00 97.4 F L 64 16 180/77 H 92 L Weight Admit Weight 175 lb Weight 164 lb 12.8 oz I&O: 09/16/18 09/17/18 09/18/18 06:59 06:59 06:59 Intake Total 144 1284 640 Output Total 1100 5400 2300 Balance -956 -4116 -1660 Result Diagrams: 09/16/18 04:54 09/17/18 04:18 Additional Labs: Accuchecks 09/17/18 09/17/18 09/17/18 16:29 10:53 05:54 POC Glucose 130 H 267 H 176 H 09/16/18 09/16/18 20:48 05:29 POC Glucose 155 H 159 H Microbiology 09/16/18 04:42 Stool C. difficile GDH Antigen & Toxins - Final Laboratory Tests 11/24/14 09/15/18 09/15/18 20:10 18:53 18:53 Hgb 11.0 L Potassium Creatinine Magnesium B-Natriuretic Peptide 179.0 H 1603.6 H 09/16/18 09/16/18 04:54 04:54 Hgb Potassium 3.4 L Creatinine 1.19 H Magnesium 1.4 L B-Natriuretic Peptide 1442.9 H Radiology Reviewed by me: Yes (Echo - EF 55-60%, II/III diast dysfxn, mod TR) EKG Reviewed by me: Yes (Tele - SR) Phys Exam - Physical Examination Constitutional: NAD HEENT: PERRLA, sclera anicteric, oral pharynx no lesions Neck: no nodes, no JVD, supple, full ROM Respiratory: no wheezing, no rales, no rhonchi, clear to auscultation bilateral S1, S2 Cardiovascular: RRR, no significant murmur, no rub, gallop Gastrointestinal: soft, non-tender, no distention, positive bowel sounds Musculoskeletal: pulses present, edema present Neurological: normal sensation, moves all 4 limbs Psychiatric: A&O x 3 Skin: normal turgor, cap refill <2 seconds Dx/Plan (1) Acute diastolic CHF (congestive heart failure), NYHA class 2 Code(s): I50.31 - ACUTE DIASTOLIC (CONGESTIVE) HEART FAILURE Status: Acute Comment: EF 55-60% with diastolic dysfunction, continue Lasix 40mg IV BID, monitor I/O's and daily weight, outpt referral to HF clinic (2) CAD (coronary artery disease) Code(s): I25.10 - ATHSCL HEART DISEASE OF [place] CORONARY ARTERY W/O ANG PCTRS Status: Chronic Qualifiers: Coronary Disease-Associated Artery/Lesion type: [place] artery [place] vs. transplanted heart: [place] heart Associated angina: without angina Qualified Code(s): I25.10 - Atherosclerotic heart disease of [place] coronary artery without angina pectoris Comment: Continue ASA/Plavix, Metoprolol (3) DM type 2 (diabetes mellitus, type 2) Status: Chronic Qualifiers: Diabetes mellitus senior care insulin use: with cyber threat analyst use Diabetes mellitus complication status: with circulatory complication Diabetes mellitus complication detail: with other circulatory complications Qualified Code(s): E11.59 - Type 2 diabetes mellitus with other circulatory complications; Z79.4 - quality analyst/technical writer (current) use of insulin Comment: ISS, ADA (4) Hypertension Code(s): I10 - ESSENTIAL (PRIMARY) HYPERTENSION Status: Chronic Qualifiers: Hypertension type: essential hypertension Qualified Code(s): I10 - Essential (primary) hypertension Comment: Labile, Resume home BP regimen, serial monitoring and titrate to optimal response - Plan social media sr strategy manager, out of bed/ambulate Stable currently -: Continue Lasix 40mg IV BID another 24h then convert to po -: OOB/ambulate -: Continue ASA/Plavix -: Likely home in 24h * .
[2018-09-18] MEDS: Furosemide 40 MG/4 ML VIAL SLOW IVP SCH ×2 (06:23→14:26)
[2018-09-18] MEDS ORDERED: Spironolactone 25 MG TAB PO SCH (08:00)
[2018-09-18] MEDS ORDERED: Sodium Chloride 0.9% 10 ML ONE (08:32)
[2018-09-18 08:58] VITALS: TEMP 97.5
[2018-09-18] MEDS: busPIRone HCl 10 MG TAB PO SCH (10:25)
[2018-09-18] MEDS: Amlodipine 10 MG TAB PO SCH (10:25)
[2018-09-18] MEDS: Multivit, Therapeutic 1 TAB PO SCH (10:27)
[2018-09-18] MEDS: Calcium Carbonate 500 MG TAB PO SCH (10:27)
[2018-09-18] MEDS: Lactinex Tablet PO SCH (10:27)
[2018-09-18] MEDS: Lisinopril/Hydrochlorothiazide 20/25 mg Tablet PO SCH (10:27)
[2018-09-18] MEDS: Ferrous Sulfate 325 MG TAB PO SCH (10:27)
[2018-09-18] MEDS: Clopidogrel Bisulfate 75 MG TAB PO SCH (10:27)
[2018-09-18] MEDS: Aspirin 81 mg Enteric Coated Tablet PO SCH (10:28)
[2018-09-18] MEDS: Aspirin Chewable 81 MG TAB PO SCH (10:28)
[2018-09-18] MEDS: Enoxaparin Sodium 40 MG/0.4 ML SYRINGE SC SCH (10:28)
[2018-09-18] MEDS: Metoprolol Tartrate 25 MG TAB PO SCH (10:28)
[2018-09-18] MEDS: PARoxetine CR 12.5 MG TAB PO SCH (10:29)
[2018-09-18 11:27] VITALS: BP 175/77
[2018-09-18] MEDS: HumaLOG 300 UNITS/3 ML VIAL SC PRN (12:44)
--- NOTE | 2018-09-19 04:32 | DIS ---
DATE OF ADMISSION: 09/15/2018 DATE OF DISCHARGE: 09/18/2018 DISCHARGE DIAGNOSES: 1. Acute diastolic congestive heart failure, [place] Heart Association class II with ejection fraction of 55% to 60%. 2. Coronary artery disease, chronic and stable. 3. Hypertension, stable. 4. Chronic kidney disease, stage 3. CONSULTATIONS: Dr. Rice with Cardiology Service. PERTINENT LAB AND X-RAY FINDINGS: Creatinine ranged between 1.08-1.19. Estimated GFR ranged between 49-55. Lactic acid level 1.1. BNP ranged between 6769-2861, hemoglobin ranged between 10.3-11.0. C difficile antigen and toxin dated 09/16/2018, negative. Portable chest x-ray dated 09/15/2018, showed interstitial and alveolar infiltrates concerning for edema. 2D transthoracic echocardiogram dated 09/16/2018 showed ejection fraction of 55% to 60% with grade 2/3 diastolic dysfunction. Moderate tricuspid valve regurgitation noted. Bilateral lower extremity venous Doppler study dated 09/16/2018, showed no evidence for DVT. HOSPITAL COURSE: The patient was admitted to the telemetry unit after initially presenting with shortness of breath and lower extremity edema. The patient was initially managed for CHF exacerbation, undergoing 2D transthoracic echocardiogram showing preserved ejection fraction with grade 2/3 diastolic dysfunction. The patient received IV Lasix throughout her hospital course with approximately 20-pound weight loss during the hospital stay. The patient was placed on fluid restriction to 1.5 L per 24 hours and overall clinically stabilized with diuretic therapy. Symptomatically, the patient improved with resolving shortness of breath. Telemetry monitoring showed sinus mechanism without evidence of acute arrhythmia or dysrhythmia. Overall, the patient clinically stabilized with diuretic therapy and fluid restriction. I have discussed followup instructions and disposition planning with the patient at the time of discharge, who verbalized understanding and in agreement. The patient overall clinically stable and ready for discharge on 09/18/2018. DISCHARGE MEDICATIONS: 1. Amlodipine 10 mg p.o. b.i.d. 2. BuSpar 10 mg p.o. b.i.d. 3. Calcium carbonate 500 mg p.o. daily. 4. Vitamin D3 1000 units p.o. daily. 5. Plavix 75 mg p.o. daily. 6. Ferrous sulfate 325 mg p.o. daily. 7. Lactobacillus 1 tablet p.o. b.i.d.. 8. Lisinopril/hydrochlorothiazide 20/25 mg 1 tablet p.o. b.i.d. 9. Metoprolol tartrate 25 mg p.o. b.i.d. 10. Multivitamin 1 tablet p.o. daily. 11. Paroxetine 37.5 mg p.o. daily. 12. Aspirin enteric-coated 81 mg p.o. daily. 13. Lasix 40 mg 1 tablet p.o. daily. 14. Aldactone 12.5 mg p.o. daily. FOLLOWUP: The patient will follow up with Dr. Danica Zarate within 7 days of discharge. The patient will follow up with Dr. Rice with [facility] and to call his office for appointment time and date. CONDITION ON DISCHARGE: Fair. ACTIVITY: Ad-henry. DIET: Heart healthy. FLUID RESTRICTION: To 1.8 L per 24 hours. SPECIAL INSTRUCTIONS: Outpatient referral to cardiac rehabilitation given in [place], [place]. CODE STATUS: Full. DISPOSITION: Home on 09/18/2018. Job ID: [id number]
== END 2018-09-18 17:40 | disposition home or self-care (01) | DRG 293 ==
LOC: ERS 18:04 → 2NO 22:51
PROVIDERS: ADMIT Family Medicine; ATTEND Family Medicine
DX: I11.0 Hypertensive heart disease with heart failure (principal); I50.33 Acute on chronic diastolic (congestive) heart failure; E11.9 Type 2 diabetes mellitus without complications; I25.10 Atherosclerotic heart disease of native coronary artery without angina pectoris; I25.5 Ischemic cardiomyopathy; F31.9 Bipolar disorder, unspecified; F41.9 Anxiety disorder, unspecified; R19.7 Diarrhea, unspecified; E78.5 Hyperlipidemia, unspecified; Z86.73 Personal history of transient ischemic attack (TIA), and cerebral infarction without residual deficits; Z88.0 Allergy status to penicillin; Z79.82 Long term (current) use of aspirin; Z95.5 Presence of coronary angioplasty implant and graft; Z79.02 Long term (current) use of antithrombotics/antiplatelets; Z79.899 Other long term (current) drug therapy; Z89.429 Acquired absence of other toe(s), unspecified side; Z90.49 Acquired absence of other specified parts of digestive tract; Z98.84 Bariatric surgery status; Z98.890 Other specified postprocedural states
CPT/HCPCS: 36415; 36416; 71045; 80048; 80053; 81003; 81015; 83605; 83735; 83880; 84484; 85025; 87324; 87449; 93005; 93306; 93798; 93970; 94640; 94760; 96374; J0360; J1650; J1940; J7620

== ENCOUNTER 2019-02-25 21:21 | Emergency (ER) | payer OTHER, SELFPAY ==
--- NOTE | 2019-02-25 22:53 | RAD ---
RIGHT KNEE FOUR VIEWS: Date: 02-25-19 History: Injury, trauma, pain. FINDINGS: The bones are demineralized. No knee joint effusion, displaced fracture or evidence of dislocation. IMPRESSION: No acute findings. POS: JAYDA
--- NOTE | 2019-02-25 22:55 | RAD ---
LEFT SHOULDER THREE VIEWS: Date: 02-25-19 Comparison: None. History: Fall, trauma, pain. FINDINGS: No widening of the AC or CC interspace. No displaced fracture or evidence of dislocation. IMPRESSION: No acute osseous abnormality. POS: JAYDA
[2019-02-25] MEDS ORDERED: HYDROcodone/Acetaminophen 10/325 mg Tablet ONE (23:06)
== END 2019-02-25 23:15 | disposition home or self-care (01) ==
LOC: ERS 21:21
DX: S43.401A Unspecified sprain of right shoulder joint, initial encounter (principal); S80.01XA Contusion of right knee, initial encounter; I10 Essential (primary) hypertension; I25.2 Old myocardial infarction; E11.9 Type 2 diabetes mellitus without complications; F41.9 Anxiety disorder, unspecified; F31.9 Bipolar disorder, unspecified; Z79.82 Long term (current) use of aspirin; Z79.01 Long term (current) use of anticoagulants; Z79.899 Other long term (current) drug therapy; Z95.5 Presence of coronary angioplasty implant and graft; Z86.73 Personal history of transient ischemic attack (TIA), and cerebral infarction without residual deficits; W01.198A Fall on same level from slipping, tripping and stumbling with subsequent striking against other object, initial encounter

== ENCOUNTER 2020-05-03 13:43 | Emergency (ER) | payer SELFPAY ==
[2020-05-03 14:58] LABS: #Eosinphils 0.2 thou/uL (0.0-0.7); #Lymphocytes 1.3 thou/uL (1.20-3.40); #Monocytes 0.4 thou/uL (0.11-0.59); #Neutrophils 5.3 thou/uL (1.40-6.50); %Basophils 0.3 % (0.0-1.0); %Eosinophils 2.4 % (0.0-10.0); %Lymphocytes 18.4 % (21.0-51.0); %Monocytes 5.1 % (0.0-10.0); %Neutrophils 73.9 % (42.0-75.0); Hemoglobin 13.5 g/dL (12.0-16.0); Mean Corpuscular HGB CONC 34.1 g/dL (32.0-36.0); Mean Corpuscular Hemoglobin 30.8 pg (27.0-31.0); Mean Corpuscular Volume 90.5 fL (78.0-98.0); Platelet Count 193 thou/uL (130-400); Red Blood Cell (RBC) Count 4.38 mill/uL (4.20-5.40); White Blood Cell (WBC) Count 7.2 thou/uL (4.8-10.8)
[2020-05-03] MEDS ORDERED: Lisinopril 10 MG TAB ONE (15:21)
[2020-05-03] MEDS ORDERED: Metoprolol Tartrate 25 MG TAB ONE (15:21)
[2020-05-03] MEDS ORDERED: Spironolactone 25 MG TAB PO SCH (15:45)
--- NOTE | 2020-05-03 16:11 | RAD ---
XR Chest 1 View Portable History: Dyspnea Comparison: Radiograph August 2018 Findings: The perihilar opacities have improved. Heart size is enlarged. No pneumothorax. No effusion . No acute osseous abnormality. Impression: Cardiomegaly without overt evidence of heart failure.
[2020-05-03 16:21] LABS: Albumin 3.1 g/dL (3.5-5.0)
[2020-05-03 16:22] LABS: Chloride 106 mmol/L (98-107); Sodium 138 mmol/L (136-145)
[2020-05-03 16:23] LABS: Calcium 7.9 mg/dL (7.8-10.44); Glucose 156 mg/dL (70-105)
[2020-05-03 16:24] LABS: Globulin 2.7 g/dL (2.4-3.5); Protein, Total 5.8 g/dL (6.0-8.3)
[2020-05-03 16:25] LABS: Anion Gap 10 mmol/L (10-20); Bilirubin, Total 0.3 mg/dL (0.2-1.2); Carbon Dioxide 26 mmol/L (22-29)
[2020-05-03 16:26] LABS: Alkaline Phosphatase 79 U/L (40-110)
[2020-05-03] MEDS ORDERED: Furosemide 40 MG/4 ML VIAL ONE (16:26)
[2020-05-03 16:27] LABS: Calc. Creatinine Clearance 0 mL/min (70-130); Estimated GFR-MDRD 42
[2020-05-03 16:28] LABS: BUN (Urea Nitrogen) 18 mg/dL (7.0-18.7)
[2020-05-03 16:29] LABS: ALT (SGPT) 15 U/L (8-55); AST (SGOT) 17 U/L (5-34)
== END 2020-05-03 17:30 | disposition home or self-care (01) ==
LOC: ERS 13:43
DX: E87.70 Fluid overload, unspecified (principal); I25.2 Old myocardial infarction; E11.9 Type 2 diabetes mellitus without complications; F41.9 Anxiety disorder, unspecified; F31.9 Bipolar disorder, unspecified; Z79.899 Other long term (current) drug therapy
CPT/HCPCS: 36415; 71045; 80053; 83880; 84484; 85025; 93005; 96374; 99406; J1940

== ENCOUNTER 2020-12-25 07:41 | Observation (INO) | payer BC, SELFPAY ==
[2020-12-25] MEDS ORDERED: Metoclopramide 10 MG/10 ML UDCUP ONE (08:16)
[2020-12-25] MEDS ORDERED: Labetalol HCl 100 MG/20 ML VIAL ONE (08:16)
[2020-12-25] MEDS ORDERED: Pantoprazole 40 MG VIAL ONE (08:16)
[2020-12-25] MEDS ORDERED: Metoclopramide HCl 10 MG/2 ML VIAL ONE (08:17)
[2020-12-25 08:21] LABS: Hemoglobin 12.2 g/dL (12.0-16.0); Mean Corpuscular HGB CONC 32.2 g/dL (32.0-36.0); Mean Corpuscular Hemoglobin 29.2 pg (27.0-31.0); Mean Corpuscular Volume 90.4 fL (78.0-98.0); Mean Platelet Volume 10.2 fL (7.4-10.4); Platelet Count 204 thou/uL (130-400); RBC Distribution Width 11.9 % (11.5-14.5); Red Blood Cell (RBC) Count 4.17 mill/uL (4.20-5.40); White Blood Cell (WBC) Count 16.2 thou/uL (4.8-10.8)
[2020-12-25 08:38] LABS: ALT (SGPT) 19 U/L (8-55); AST (SGOT) 17 U/L (5-34); Albumin 3.4 g/dL (3.5-5.0); Alkaline Phosphatase 97 U/L (40-110); Anion Gap 13 mmol/L (10-20); BUN (Urea Nitrogen) 18 mg/dL (7.0-18.7); Bilirubin, Total 0.4 mg/dL (0.2-1.2); Calc. Creatinine Clearance 0 mL/min (70-130); Calcium 8.6 mg/dL (7.8-10.44); Carbon Dioxide 22 mmol/L (22-29); Chloride 101 mmol/L (98-107); Globulin 3.2 g/dL (2.4-3.5); Glucose 162 mg/dL (70-105); Lipase Less than 4 U/L (8-78); Potassium 3.6 mmol/L (3.5-5.1); Protein, Total 6.6 g/dL (6.0-8.3); Sodium 132 mmol/L (136-145)
[2020-12-25 08:52] LABS: Band 1 % (5-11); Lymphocytes 9 % (21-51); MDiff Complete? YES; Monocytes 8 % (0-10); Neutrophil 80 % (42-75); Platelet Morphology Comment Appears Adequate; Reactive Lymphocytes 2 % (0-10); Vacuoles SLIGHT
[2020-12-25] MEDS ORDERED: Cefepime 2 GM VIAL ONE (08:55)
[2020-12-25] MEDS ORDERED: Vancomycin HCl 1.5 GM in Sodium Chloride 0.9% 250 ML 300 ML IVPB SCH (09:00)
[2020-12-25] MEDS ORDERED: Acetaminophen 650 MG Suppository PR PRN (10:43)
[2020-12-25] MEDS ORDERED: Acetaminophen 325 MG TAB PO PRN (10:43)
[2020-12-25] MEDS ORDERED: hydrALAZINE 20 MG/ML VIAL SLOW IVP PRN (11:34)
[2020-12-25] MEDS ORDERED: Vancomycin 1 GM in Premix Bag 1 BAG IVPB SCH (11:45)
[2020-12-25 16:54] LABS: SARS-CoV-2 PCR by NAA Not Detected (NotDetected)
[2020-12-25] MEDS ORDERED: Amlodipine 10 MG TAB PO SCH (21:00)
[2020-12-26] MEDS ORDERED: Enoxaparin Sodium 40 MG/0.4 ML SYRINGE SC SCH (09:00)
[2020-12-26] MEDS ORDERED: Aspirin 81 mg Enteric Coated Tablet PO SCH (09:00)
[2020-12-26] MEDS ORDERED: Cefepime 2 GM in Sodium Chloride 0.9% 100 ML IVPB SCH (16:00)
[2020-12-26] MEDS ORDERED: Vancomycin 1 GM in Premix Bag 1 BAG IVPB SCH (17:00)
== END 2020-12-25 14:29 | disposition short-term general hospital (02) ==
LOC: ERS 07:41 → ERHOLD 09:10
PROVIDERS: ADMIT Internal Medicine; ATTEND Internal Medicine
DX: L03.115 Cellulitis of right lower limb (principal); I16.0 Hypertensive urgency; R11.2 Nausea with vomiting, unspecified; E11.9 Type 2 diabetes mellitus without complications; I10 Essential (primary) hypertension; I25.10 Atherosclerotic heart disease of native coronary artery without angina pectoris; E78.5 Hyperlipidemia, unspecified; I25.2 Old myocardial infarction; Z79.02 Long term (current) use of antithrombotics/antiplatelets; Z79.4 Long term (current) use of insulin; Z79.82 Long term (current) use of aspirin; Z79.899 Other long term (current) drug therapy; Z88.0 Allergy status to penicillin; Z95.5 Presence of coronary angioplasty implant and graft; Z98.84 Bariatric surgery status; Z89.421 Acquired absence of other right toe(s); Z20.822 Contact with and (suspected) exposure to COVID-19
CPT/HCPCS: 36415; 71045; 80053; 83605; 83690; 84484; 85025; 87040; 93005; 96365; 96366; 96368; 96375; C9113; J0692; J2765; J3370; J7050; U0003; U0005

== ENCOUNTER 2021-01-05 07:59 | Inpatient (IN) | payer BC ==
[2021-01-05 08:33] LABS: #Eosinphils 0.3 thou/uL (0.0-0.7); #Lymphocytes 1.8 thou/uL (1.20-3.40); #Monocytes 0.7 thou/uL (0.11-0.59); %Basophils 0.4 % (0.0-1.0); %Lymphocytes 16.8 % (21.0-51.0); %Neutrophils 73.7 % (42.0-75.0); Hemoglobin 12.4 g/dL (12.0-16.0); Mean Corpuscular HGB CONC 32.8 g/dL (32.0-36.0); Mean Corpuscular Hemoglobin 29.3 pg (27.0-31.0); Mean Corpuscular Volume 89.4 fL (78.0-98.0); Mean Platelet Volume 8.5 fL (7.4-10.4); Platelet Count 455 thou/uL (130-400); RBC Distribution Width 11.8 % (11.5-14.5); Red Blood Cell (RBC) Count 4.24 mill/uL (4.20-5.40); White Blood Cell (WBC) Count 10.8 thou/uL (4.8-10.8)
[2021-01-05 08:53] LABS: ALT (SGPT) 46 U/L (8-55); AST (SGOT) 75 U/L (5-34); Albumin 3.6 g/dL (3.5-5.0); Alkaline Phosphatase 110 U/L (40-110); Anion Gap 17 mmol/L (10-20); BUN (Urea Nitrogen) 23 mg/dL (7.0-18.7); Bilirubin, Total 0.3 mg/dL (0.2-1.2); Calc. Creatinine Clearance 0 mL/min (70-130); Calcium 9.1 mg/dL (7.8-10.44); Carbon Dioxide 18 mmol/L (22-29); Chloride 102 mmol/L (98-107); Globulin 4.4 g/dL (2.4-3.5); Glucose 211 mg/dL (70-105); Potassium 4.6 mmol/L (3.5-5.1); Sodium 132 mmol/L (136-145)
[2021-01-05] MEDS ORDERED: Morphine 4 MG/ML VIAL ONE (10:15)
[2021-01-05] MEDS ORDERED: Ondansetron PF 4 MG/2 ML Vial ONE (10:15)
[2021-01-05] MEDS ORDERED: cefTRIAXone\\ROCEPHIN 2 GM VIAL ONE (10:15)
[2021-01-05] MEDS ORDERED: Ondansetron PF 4 MG/2 ML Vial IVP PRN (12:45)
[2021-01-05] MEDS ORDERED: Acetaminophen 650 MG Suppository PR PRN (12:45)
[2021-01-05] MEDS ORDERED: Ondansetron ODT 4 MG TAB PO PRN (12:45)
[2021-01-05] MEDS ORDERED: hydrALAZINE 20 MG/ML VIAL SLOW IVP PRN (12:51)
[2021-01-05] MEDS ORDERED: Vancomycin 1 GM in Premix Bag 1 BAG IVPB SCH (13:00)
[2021-01-05 13:02] LABS: Bilirubin Negative (Negative); Blood, Urine Trace (Negative); Clarity Clear (Clear); Glucose, Urine (Dipstick) Normal (Negative); Ketone, Urine Negative (Negative); Leukocyte Negative Leu/uL (Negative); Nitrite Negative (Negative); Protein, Urine (Dipstick) 50 mg/dL (Neg-Trace); RBC/HPF 0-3 HPF (0-3); Specific Gravity, Urine 1.011 (1.002-1.036); Squamous Epithelial 0-3 HPF (0-3); Urobilinogen Normal mg/dL (Less than 2); WBC/HPF 0-3 HPF (0-3); pH, Urine 5.5 (5.0-9.0)
[2021-01-05 13:03] LABS: Bacteria/HPF Rare-Few HPF (None Seen)
[2021-01-05 15:10] VITALS: BMI 28.6
[2021-01-05] MEDS ORDERED: Enoxaparin Sodium 40 MG/0.4 ML SYRINGE SC SCH (15:15)
[2021-01-05] MEDS ORDERED: busPIRone HCl 10 MG TAB PO SCH (15:30)
[2021-01-05] MEDS: Vancomycin HCl 1.25 GM in Sodium Chloride 0.9% 250 ML 250 ML IVPB SCH (16:33)
[2021-01-05] MEDS ORDERED: Dextrose 50% Abboject 50 ML SYRINGE SLOW IVP PRN (17:37)
[2021-01-05] MEDS ORDERED: Dextrose 5% in Water 1,000 ML IV PRN (17:37)
[2021-01-05] MEDS: Sodium Chloride 0.9% 1,000 ML IV SCH (18:04)
[2021-01-05] MEDS: Insulin Regular 300 UNITS/3 ML VIAL SC PRN ×2 (18:04→20:17)
[2021-01-05] MEDS: busPIRone HCl 10 MG TAB PO SCH (20:14)
[2021-01-05] MEDS: Amlodipine 10 MG TAB PO SCH (20:14)
[2021-01-05] MEDS: Metoprolol Tartrate 25 MG TAB PO SCH (20:15)
[2021-01-05] MEDS: Acetaminophen 325 MG TAB PO PRN (22:37)
[2021-01-06 06:31] LABS: #Eosinphils 0.3 thou/uL (0.0-0.7); #Lymphocytes 1.7 thou/uL (1.20-3.40); #Monocytes 0.5 thou/uL (0.11-0.59); #Neutrophils 5.3 thou/uL (1.40-6.50); %Basophils 0.6 % (0.0-1.0); %Eosinophils 3.7 % (0.0-10.0); %Lymphocytes 22.2 % (21.0-51.0); %Neutrophils 67.5 % (42.0-75.0); Mean Corpuscular HGB CONC 33.7 g/dL (32.0-36.0); Mean Corpuscular Hemoglobin 30.4 pg (27.0-31.0); Mean Corpuscular Volume 90.4 fL (78.0-98.0); Mean Platelet Volume 9.6 fL (7.4-10.4); Platelet Count 420 thou/uL (130-400); RBC Distribution Width 11.9 % (11.5-14.5); Red Blood Cell (RBC) Count 3.95 mill/uL (4.20-5.40); White Blood Cell (WBC) Count 7.8 thou/uL (4.8-10.8)
[2021-01-06 06:50] LABS: Anion Gap 14 mmol/L (10-20); BUN (Urea Nitrogen) 21 mg/dL (7.0-18.7); Calc. Creatinine Clearance 74 mL/min (70-130); Calcium 8.7 mg/dL (7.8-10.44); Carbon Dioxide 22 mmol/L (22-29); Chloride 104 mmol/L (98-107); Glucose 154 mg/dL (70-105); Potassium 4.7 mmol/L (3.5-5.1); Sodium 135 mmol/L (136-145)
[2021-01-06] MEDS: Aspirin 81 mg Enteric Coated Tablet PO SCH (08:48)
[2021-01-06] MEDS: Furosemide 40 MG TAB PO SCH (08:48)
[2021-01-06] MEDS: busPIRone HCl 10 MG TAB PO SCH ×3 (08:48→21:04)
[2021-01-06] MEDS: Spironolactone 25 MG TAB PO SCH (08:48)
[2021-01-06] MEDS: Amlodipine 10 MG TAB PO SCH ×2 (08:48→21:03)
[2021-01-06] MEDS: Acetaminophen 325 MG TAB PO PRN ×2 (08:48→13:36)
[2021-01-06] MEDS: Enoxaparin Sodium 40 MG/0.4 ML SYRINGE SC SCH (08:49)
[2021-01-06] MEDS: Sodium Chloride 0.9% 1,000 ML IV SCH ×2 (08:49→21:04)
[2021-01-06] MEDS: Metoprolol Tartrate 25 MG TAB PO SCH ×2 (08:49→21:04)
[2021-01-06] MEDS ORDERED: PARoxetine CR 12.5 MG TAB PO SCH (09:00)
[2021-01-06] MEDS ORDERED: PAROXETINE 37.5 MG PO SCH (09:00)
[2021-01-06 10:52] LABS: SARS-CoV-2 PCR NAA for Saliva Not Detected (NotDetected)
[2021-01-06] MEDS: cefTRIAXone\\ROCEPHIN 2 GM in Sodium Chloride 0.9% 100 ML IVPB SCH (13:20)
[2021-01-06] MEDS: Vancomycin HCl 1.25 GM in Sodium Chloride 0.9% 250 ML 250 ML IVPB SCH (17:25)
[2021-01-06] MEDS ORDERED: Non-Formulary Item 1 EACH (L.Acidoph,Paracasei, B.Lactis [Probiotic] 1 EACH Capsule) PO SCH (21:00)
[2021-01-06] MEDS: Lactinex Tablet PO SCH (21:04)
[2021-01-06] MEDS: Insulin Regular 300 UNITS/3 ML VIAL SC PRN (21:05)
[2021-01-07] MEDS: Sodium Chloride 0.9% 1,000 ML IV SCH (06:01)
[2021-01-07] MEDS ORDERED: Non-Formulary Item 1 EACH (Ferrous Sulfate [Ferrous Sulfate] 325 MG Tablet) PO SCH (09:00)
[2021-01-07] MEDS: busPIRone HCl 10 MG TAB PO SCH ×3 (09:30→20:19)
[2021-01-07] MEDS: Ferrous Sulfate 325 MG TAB PO SCH (09:30)
[2021-01-07] MEDS: Lactinex Tablet PO SCH ×2 (09:30→20:19)
[2021-01-07] MEDS: Spironolactone 25 MG TAB PO SCH (09:30)
[2021-01-07] MEDS: Amlodipine 10 MG TAB PO SCH ×2 (09:30→20:19)
[2021-01-07] MEDS: Aspirin 81 mg Enteric Coated Tablet PO SCH (09:30)
[2021-01-07] MEDS: Furosemide 40 MG TAB PO SCH (09:30)
[2021-01-07] MEDS: Enoxaparin Sodium 40 MG/0.4 ML SYRINGE SC SCH (09:30)
[2021-01-07] MEDS: Metoprolol Tartrate 25 MG TAB PO SCH ×2 (09:30→20:19)
[2021-01-07] MEDS: cefTRIAXone\\ROCEPHIN 2 GM in Sodium Chloride 0.9% 100 ML IVPB SCH (12:02)
[2021-01-07] MEDS: Insulin Regular 300 UNITS/3 ML VIAL SC PRN ×3 (12:05→20:19)
[2021-01-07 15:44] LABS: Vancomycin, Trough 12.2 ug/mL
[2021-01-07] MEDS: Vancomycin HCl 1.5 GM in Sodium Chloride 0.9% 250 ML 300 ML IVPB SCH (16:54)
[2021-01-08] MEDS: Sodium Chloride 0.9% 1,000 ML IV SCH ×2 (00:14→09:08)
[2021-01-08] MEDS: Insulin Regular 300 UNITS/3 ML VIAL SC PRN ×3 (06:13→18:12)
[2021-01-08] MEDS: Enoxaparin Sodium 40 MG/0.4 ML SYRINGE SC SCH (09:04)
[2021-01-08] MEDS: Clopidogrel Bisulfate 75 MG TAB PO SCH (09:05)
[2021-01-08] MEDS: busPIRone HCl 10 MG TAB PO SCH ×3 (09:05→20:09)
[2021-01-08] MEDS: Amlodipine 10 MG TAB PO SCH ×2 (09:05→20:09)
[2021-01-08] MEDS: Aspirin 81 mg Enteric Coated Tablet PO SCH (09:05)
[2021-01-08] MEDS: Lisinopril 20 MG TAB PO SCH (09:05)
[2021-01-08] MEDS: Furosemide 40 MG TAB PO SCH (09:06)
[2021-01-08] MEDS: Metoprolol Tartrate 25 MG TAB PO SCH ×2 (09:06→20:09)
[2021-01-08] MEDS: Ferrous Sulfate 325 MG TAB PO SCH (09:06)
[2021-01-08] MEDS: Spironolactone 25 MG TAB PO SCH (09:18)
[2021-01-08] MEDS: cefTRIAXone\\ROCEPHIN 2 GM in Sodium Chloride 0.9% 100 ML IVPB SCH (12:49)
[2021-01-08] MEDS: Lactinex Tablet PO SCH ×2 (16:17→20:09)
[2021-01-08] MEDS: Vancomycin HCl 1.5 GM in Sodium Chloride 0.9% 250 ML 300 ML IVPB SCH (18:11)
[2021-01-09] MEDS: Insulin Regular 300 UNITS/3 ML VIAL SC PRN ×3 (06:06→16:14)
[2021-01-09] MEDS: Lactinex Tablet PO SCH ×2 (08:23→21:15)
[2021-01-09] MEDS: Aspirin 81 mg Enteric Coated Tablet PO SCH (08:23)
[2021-01-09] MEDS: Furosemide 40 MG TAB PO SCH (08:23)
[2021-01-09] MEDS: Lisinopril 20 MG TAB PO SCH (08:23)
[2021-01-09] MEDS: busPIRone HCl 10 MG TAB PO SCH ×3 (08:23→21:15)
[2021-01-09] MEDS: Spironolactone 25 MG TAB PO SCH (08:23)
[2021-01-09] MEDS: Enoxaparin Sodium 40 MG/0.4 ML SYRINGE SC SCH (08:23)
[2021-01-09] MEDS: Ferrous Sulfate 325 MG TAB PO SCH (08:23)
[2021-01-09] MEDS: Metoprolol Tartrate 25 MG TAB PO SCH ×2 (08:23→21:15)
[2021-01-09] MEDS: Clopidogrel Bisulfate 75 MG TAB PO SCH (08:23)
[2021-01-09] MEDS: Amlodipine 10 MG TAB PO SCH ×2 (08:24→21:15)
[2021-01-09] MEDS: cefTRIAXone\\ROCEPHIN 2 GM in Sodium Chloride 0.9% 100 ML IVPB SCH (11:59)
[2021-01-09 15:02] LABS: #Basophils 0.1 thou/uL (0.0-0.2); #Eosinphils 0.3 thou/uL (0.0-0.7); #Lymphocytes 1.9 thou/uL (1.20-3.40); #Monocytes 0.4 thou/uL (0.11-0.59); #Neutrophils 4.9 thou/uL (1.40-6.50); %Basophils 1.1 % (0.0-1.0); %Eosinophils 4.4 % (0.0-10.0); %Lymphocytes 24.9 % (21.0-51.0); %Monocytes 5.4 % (0.0-10.0); %Neutrophils 64.3 % (42.0-75.0); Hemoglobin 12.7 g/dL (12.0-16.0); Mean Corpuscular HGB CONC 32.7 g/dL (32.0-36.0); Mean Corpuscular Hemoglobin 29.4 pg (27.0-31.0); Mean Corpuscular Volume 90.1 fL (78.0-98.0); Mean Platelet Volume 8.8 fL (7.4-10.4); Platelet Count 431 thou/uL (130-400); RBC Distribution Width 12.1 % (11.5-14.5); Red Blood Cell (RBC) Count 4.31 mill/uL (4.20-5.40); White Blood Cell (WBC) Count 7.7 thou/uL (4.8-10.8)
[2021-01-09 15:18] LABS: Vancomycin, Trough 20.8 ug/mL
[2021-01-09 15:25] LABS: Anion Gap 14 mmol/L (10-20); BUN (Urea Nitrogen) 14 mg/dL (7.0-18.7); Calc. Creatinine Clearance 48 mL/min (70-130); Calcium 9.5 mg/dL (7.8-10.44); Carbon Dioxide 24 mmol/L (22-29); Chloride 102 mmol/L (98-107); Glucose 208 mg/dL (70-105); Potassium 4.8 mmol/L (3.5-5.1); Sodium 135 mmol/L (136-145)
[2021-01-09] MEDS: Vancomycin HCl 1.5 GM in Sodium Chloride 0.9% 250 ML 300 ML IVPB SCH (17:00)
[2021-01-09] MEDS ORDERED: Saccharomyces boulardii 250 MG CAP PO SCH (21:00)
[2021-01-09 22:21] LABS: Bacteria/HPF None Seen HPF (None Seen); Bilirubin Negative (Negative); Blood, Urine 1+ (Negative); Clarity Clear (Clear); Glucose, Urine (Dipstick) Greater than 1000 mg/dL (Negative); Ketone, Urine Negative (Negative); Leukocyte Negative Leu/uL (Negative); Nitrite Negative (Negative); Protein, Urine (Dipstick) 70 mg/dL (Neg-Trace); RBC/HPF 21-50 HPF (0-3); Specific Gravity, Urine 1.015 (1.002-1.036); Squamous Epithelial 0-3 HPF (0-3); Urobilinogen Normal mg/dL (Less than 2); pH, Urine 5.5 (5.0-9.0)
[2021-01-09 22:28] LABS: Urine Culture Reflex Yes Yes
[2021-01-10] MEDS: Insulin Regular 300 UNITS/3 ML VIAL SC PRN (05:47)
[2021-01-10 06:28] LABS: Anion Gap 13 mmol/L (10-20); BUN (Urea Nitrogen) 16 mg/dL (7.0-18.7); Calc. Creatinine Clearance 64 mL/min (70-130); Calcium 8.4 mg/dL (7.8-10.44); Carbon Dioxide 20 mmol/L (22-29); Chloride 105 mmol/L (98-107); Glucose 242 mg/dL (70-105); Potassium 4.3 mmol/L (3.5-5.1); Sodium 134 mmol/L (136-145)
[2021-01-10] MEDS: Amlodipine 10 MG TAB PO SCH (08:05)
[2021-01-10] MEDS: Clopidogrel Bisulfate 75 MG TAB PO SCH (08:05)
[2021-01-10] MEDS: Lactinex Tablet PO SCH (08:05)
[2021-01-10] MEDS: busPIRone HCl 10 MG TAB PO SCH ×2 (08:05→15:32)
[2021-01-10] MEDS: Ferrous Sulfate 325 MG TAB PO SCH (08:05)
[2021-01-10] MEDS: Aspirin 81 mg Enteric Coated Tablet PO SCH (08:05)
[2021-01-10] MEDS: Metoprolol Tartrate 25 MG TAB PO SCH (08:05)
[2021-01-10] MEDS: Enoxaparin Sodium 40 MG/0.4 ML SYRINGE SC SCH (08:06)
[2021-01-10] MEDS ORDERED: Multivit, Therapeutic 1 TAB PO SCH (09:00)
[2021-01-10 11:55] VITALS: BP 147/79; TEMP 97.8
[2021-01-10] MEDS: cefTRIAXone\\ROCEPHIN 2 GM in Sodium Chloride 0.9% 100 ML IVPB SCH (12:08)
== END 2021-01-10 15:43 | disposition home or self-care (01) | DRG 300 ==
LOC: ERS 07:59 → T4-A 12:54
PROVIDERS: ADMIT Internal Medicine; ATTEND Internal Medicine
DX: E11.51 Type 2 diabetes mellitus with diabetic peripheral angiopathy without gangrene (principal); L03.115 Cellulitis of right lower limb; E87.1 Hypo-osmolality and hyponatremia; E87.2 Acidosis; I50.32 Chronic diastolic (congestive) heart failure; I13.0 Hypertensive heart and chronic kidney disease with heart failure and stage 1 through stage 4 chronic kidney disease, or unspecified chronic kidney disease; L97.919 Non-pressure chronic ulcer of unspecified part of right lower leg with unspecified severity; N17.9 Acute kidney failure, unspecified; E11.628 Type 2 diabetes mellitus with other skin complications; Z20.822 Contact with and (suspected) exposure to COVID-19; I16.0 Hypertensive urgency; N18.30 Chronic kidney disease, stage 3 unspecified; E11.22 Type 2 diabetes mellitus with diabetic chronic kidney disease; I25.10 Atherosclerotic heart disease of native coronary artery without angina pectoris; F41.9 Anxiety disorder, unspecified; I87.2 Venous insufficiency (chronic) (peripheral); E11.621 Type 2 diabetes mellitus with foot ulcer; L97.519 Non-pressure chronic ulcer of other part of right foot with unspecified severity; F31.9 Bipolar disorder, unspecified; E11.319 Type 2 diabetes mellitus with unspecified diabetic retinopathy without macular edema; E78.5 Hyperlipidemia, unspecified; Z88.0 Allergy status to penicillin; Z89.421 Acquired absence of other right toe(s); Z79.899 Other long term (current) drug therapy; Z79.82 Long term (current) use of aspirin; Z90.49 Acquired absence of other specified parts of digestive tract; Z79.02 Long term (current) use of antithrombotics/antiplatelets; Z95.5 Presence of coronary angioplasty implant and graft; I25.2 Old myocardial infarction; Z83.3 Family history of diabetes mellitus
CPT/HCPCS: 36415; 36416; 80048; 80053; 80202; 81001; 81003; 81015; 83605; 84484; 85025; 87040; 87070; 87077; 87081; 87086; 87186; 87205; 93923; 96365; 96375; J0696; J1650; J1815; J2270; J2405; J3370; J3490; J7050; U0003; U0005

== ENCOUNTER 2021-07-06 03:41 | Inpatient (IN) | payer BC, OTHER ==
[2021-07-06 06:17] VITALS: BMI 28.8
[2021-07-06] MEDS ORDERED: hydrALAZINE 20 MG/ML VIAL SLOW IVP PRN (06:19)
[2021-07-06 07:18] LABS: #Eosinphils 0.2 thou/uL (0.0-0.7); #Lymphocytes 1.2 thou/uL (1.20-3.40); #Monocytes 0.6 thou/uL (0.11-0.59); #Neutrophils 8.2 thou/uL (1.40-6.50); %Basophils 0.4 % (0.0-1.0); %Eosinophils 2.3 % (0.0-10.0); %Lymphocytes 11.3 % (21.0-51.0); %Monocytes 5.9 % (0.0-10.0); %Neutrophils 80.1 % (42.0-75.0); Mean Corpuscular Volume 87.3 fL (78.0-98.0); Mean Platelet Volume 10.5 fL (7.4-10.4); Platelet Count 158 thou/uL (130-400); RBC Distribution Width 11.7 % (11.5-14.5); White Blood Cell (WBC) Count 10.2 thou/uL (4.8-10.8)
[2021-07-06 07:38] LABS: Anion Gap 14 mmol/L (10-20); BUN (Urea Nitrogen) 17 mg/dL (7.0-18.7); Calc. Creatinine Clearance 77 mL/min (70-130); Calcium 9.1 mg/dL (7.8-10.44); Carbon Dioxide 21 mmol/L (22-29); Chloride 103 mmol/L (98-107); Glucose 159 mg/dL (70-105); Magnesium 1.6 mg/dL (1.6-2.6); Potassium 4.6 mmol/L (3.5-5.1); Sodium 133 mmol/L (136-145)
[2021-07-06] MEDS ORDERED: Spironolactone 25 MG TAB PO SCH (08:00)
[2021-07-06] MEDS: Lisinopril/Hydrochlorothiazide 20/25 mg Tablet PO SCH ×2 (09:23→20:19)
[2021-07-06] MEDS: Metoprolol Tartrate 25 MG TAB PO SCH ×2 (09:23→20:19)
[2021-07-06] MEDS ORDERED: SIMETHICONE 125 MG PO PRN (09:59)
[2021-07-06] MEDS ORDERED: Loperamide HCl 2 MG CAP PO PRN (09:59)
[2021-07-06] MEDS ORDERED: Azithromycin 200 MG/5 ML Oral Suspension PO SCH (10:12)
[2021-07-06] MEDS ORDERED: Simethicone Chewable 80 MG TAB PO PRN (10:33)
[2021-07-06] MEDS ORDERED: Dextrose 50% Abboject 50 ML SYRINGE SLOW IVP PRN (10:33)
[2021-07-06] MEDS ORDERED: Dextrose 5% in Water 1,000 ML IV PRN (10:33)
[2021-07-06] MEDS: Furosemide 40 MG/4 ML VIAL SLOW IVP SCH (11:50)
[2021-07-06] MEDS: Azithromycin 250 MG TAB PO SCH (11:50)
[2021-07-06 13:10] LABS: SARS-CoV-2 PCR by NAA Not Detected (NotDetected)
[2021-07-06] MEDS: Heparin 5,000 UNITS/ML VIAL SC SCH ×2 (15:32→20:20)
[2021-07-06] MEDS ORDERED: Magnesium Oxide 400 MG TAB PO SCH (16:45)
[2021-07-06] MEDS: Saccharomyces boulardii 250 MG CAP PO SCH (20:19)
[2021-07-06] MEDS: busPIRone HCl 10 MG TAB PO SCH (20:20)
[2021-07-06] MEDS: hydrALAZINE 20 MG/ML VIAL SLOW IVP PRN (20:21)
[2021-07-06] MEDS ORDERED: Cephalexin 250 MG CAP PO SCH ×2 (21:00)
[2021-07-06] MEDS ORDERED: Non-Formulary Item 1 EACH (L.Acidoph,Paracasei, B.Lactis [Probiotic] 1 EACH Capsule) PO SCH (21:00)
[2021-07-06] MEDS ORDERED: Cephalexin 125 MG/5 ML Oral Suspension PO SCH (21:00)
[2021-07-07] MEDS: hydrALAZINE 20 MG/ML VIAL SLOW IVP PRN (05:23)
[2021-07-07] MEDS: HumaLOG 300 UNITS/3 ML VIAL SC PRN ×3 (06:18→17:36)
[2021-07-07 06:42] LABS: #Eosinphils 0.2 thou/uL (0.0-0.7); #Lymphocytes 1.5 thou/uL (1.20-3.40); #Monocytes 0.4 thou/uL (0.11-0.59); #Neutrophils 3.6 thou/uL (1.40-6.50); %Basophils 0.5 % (0.0-1.0); %Eosinophils 3.7 % (0.0-10.0); %Lymphocytes 26.1 % (21.0-51.0); %Monocytes 7.7 % (0.0-10.0); %Neutrophils 62.1 % (42.0-75.0); Hemoglobin 11.8 g/dL (12.0-16.0); Mean Corpuscular HGB CONC 34.2 g/dL (32.0-36.0); Mean Corpuscular Hemoglobin 29.5 pg (27.0-31.0); Mean Corpuscular Volume 86.1 fL (78.0-98.0); Mean Platelet Volume 10.9 fL (7.4-10.4); Platelet Count 164 thou/uL (130-400); RBC Distribution Width 11.7 % (11.5-14.5); Red Blood Cell (RBC) Count 4.01 mill/uL (4.20-5.40); White Blood Cell (WBC) Count 5.8 thou/uL (4.8-10.8)
[2021-07-07 06:57] LABS: Hemoglobin A1c 7.5 % (4.0-6.0)
[2021-07-07 07:05] LABS: Anion Gap 13 mmol/L (10-20); BUN (Urea Nitrogen) 16 mg/dL (7.0-18.7); Calc. Creatinine Clearance 61 mL/min (70-130); Calcium 8.8 mg/dL (7.8-10.44); Carbon Dioxide 25 mmol/L (22-29); Chloride 99 mmol/L (98-107); Glucose 212 mg/dL (70-105); Potassium 3.5 mmol/L (3.5-5.1); Sodium 133 mmol/L (136-145)
[2021-07-07 07:05] LABS: SARS-CoV-2 NAA Rapid Test Not Detected (NotDetected)
[2021-07-07] MEDS ORDERED: Non-Formulary Item 1 EACH (Ferrous Sulfate [Ferrous Sulfate] 325 MG Tablet) PO SCH (09:00)
[2021-07-07] MEDS ORDERED: PAROXETINE HCL PO SCH (09:00)
[2021-07-07] MEDS ORDERED: Non-Formulary Item 1 EACH (Cholecalciferol (Vitamin D3) [Vitamin D] 1000 UNIT Capsule) PO SCH (09:00)
[2021-07-07] MEDS: busPIRone HCl 10 MG TAB PO SCH ×2 (09:41→20:31)
[2021-07-07] MEDS: Saccharomyces boulardii 250 MG CAP PO SCH ×2 (09:41→20:31)
[2021-07-07] MEDS: Lisinopril/Hydrochlorothiazide 20/25 mg Tablet PO SCH (09:41)
[2021-07-07] MEDS: Heparin 5,000 UNITS/ML VIAL SC SCH ×3 (09:42→20:31)
[2021-07-07] MEDS: Cholecalciferol 1,000 UNITS (25 MCG) TAB PO SCH (09:42)
[2021-07-07] MEDS: Furosemide 40 MG/4 ML VIAL SLOW IVP SCH (09:42)
[2021-07-07] MEDS: Multivit, Therapeutic 1 TAB PO SCH (09:42)
[2021-07-07] MEDS: Calcium Carbonate 500 MG TAB PO SCH (09:42)
[2021-07-07] MEDS: Metoprolol Tartrate 25 MG TAB PO SCH ×2 (09:42→20:31)
[2021-07-07] MEDS: Cephalexin 250 MG CAP PO SCH ×2 (09:42→20:31)
[2021-07-07] MEDS: Ferrous Sulfate 325 MG TAB PO SCH (09:42)
[2021-07-07] MEDS: Aspirin 81 mg Enteric Coated Tablet PO SCH (09:42)
[2021-07-07] MEDS: Azithromycin 250 MG TAB PO SCH (11:35)
[2021-07-08 05:12] LABS: #Eosinphils 0.3 thou/uL (0.0-0.7); #Lymphocytes 1.7 thou/uL (1.20-3.40); #Monocytes 0.6 thou/uL (0.11-0.59); #Neutrophils 3.5 thou/uL (1.40-6.50); %Basophils 0.3 % (0.0-1.0); %Eosinophils 5.2 % (0.0-10.0); %Lymphocytes 27.9 % (21.0-51.0); %Monocytes 9.1 % (0.0-10.0); %Neutrophils 57.5 % (42.0-75.0); Hemoglobin 12.1 g/dL (12.0-16.0); Mean Corpuscular HGB CONC 33.3 g/dL (32.0-36.0); Mean Corpuscular Hemoglobin 28.8 pg (27.0-31.0); Mean Corpuscular Volume 86.5 fL (78.0-98.0); Mean Platelet Volume 10.4 fL (7.4-10.4); Platelet Count 170 thou/uL (130-400); RBC Distribution Width 11.6 % (11.5-14.5); Red Blood Cell (RBC) Count 4.19 mill/uL (4.20-5.40)
[2021-07-08 05:41] LABS: ALT (SGPT) 14 U/L (8-55); AST (SGOT) 10 U/L (5-34); Albumin 2.9 g/dL (3.5-5.0); Alkaline Phosphatase 102 U/L (40-110); Anion Gap 12 mmol/L (10-20); BUN (Urea Nitrogen) 28 mg/dL (7.0-18.7); Bilirubin, Total 0.3 mg/dL (0.2-1.2); Calc. Creatinine Clearance 55 mL/min (70-130); Calcium 8.3 mg/dL (7.8-10.44); Carbon Dioxide 25 mmol/L (22-29); Chloride 99 mmol/L (98-107); Globulin 3.1 g/dL (2.4-3.5); Glucose 203 mg/dL (70-105); Magnesium 2.1 mg/dL (1.6-2.6); Phosphorus 4.1 mg/dL (2.3-4.7); Sodium 132 mmol/L (136-145)
[2021-07-08] MEDS: HumaLOG 300 UNITS/3 ML VIAL SC PRN (06:11)
[2021-07-08] MEDS ORDERED: FLU VACC QS2021-22(6MOS UP)/PF 60 MCG/0.5 ML SYRINGE IM ONE (09:00)
[2021-07-08] MEDS ORDERED: NIFEdipine XL 30 MG TAB PO SCH (09:00)
[2021-07-08] MEDS ORDERED: Hydrochlorothiazide 25 MG TAB PO SCH (09:00)
[2021-07-08] MEDS ORDERED: Valsartan 80 MG TAB PO SCH (09:00)
[2021-07-08] MEDS: Aspirin 81 mg Enteric Coated Tablet PO SCH (09:13)
[2021-07-08] MEDS: Heparin 5,000 UNITS/ML VIAL SC SCH (09:13)
[2021-07-08] MEDS: busPIRone HCl 10 MG TAB PO SCH (09:13)
[2021-07-08] MEDS: Calcium Carbonate 500 MG TAB PO SCH (09:13)
[2021-07-08] MEDS: Cephalexin 250 MG CAP PO SCH (09:13)
[2021-07-08] MEDS: Cholecalciferol 1,000 UNITS (25 MCG) TAB PO SCH (09:13)
[2021-07-08] MEDS: Furosemide 40 MG/4 ML VIAL SLOW IVP SCH (09:13)
[2021-07-08] MEDS: Ferrous Sulfate 325 MG TAB PO SCH (09:13)
[2021-07-08] MEDS: Multivit, Therapeutic 1 TAB PO SCH (09:14)
[2021-07-08] MEDS: Metoprolol Tartrate 25 MG TAB PO SCH (09:14)
[2021-07-08] MEDS: Saccharomyces boulardii 250 MG CAP PO SCH (09:14)
[2021-07-08 11:59] VITALS: BP 150/65; TEMP 98
== END 2021-07-08 12:10 | disposition home or self-care (01) | DRG 291 ==
LOC: 2NO 03:41
PROVIDERS: ADMIT Internal Medicine; ATTEND Internal Medicine
DX: I11.0 Hypertensive heart disease with heart failure (principal); I50.31 Acute diastolic (congestive) heart failure; L03.031 Cellulitis of right toe; Z20.822 Contact with and (suspected) exposure to COVID-19; I25.10 Atherosclerotic heart disease of native coronary artery without angina pectoris; F41.9 Anxiety disorder, unspecified; E78.5 Hyperlipidemia, unspecified; E11.59 Type 2 diabetes mellitus with other circulatory complications; J40 Bronchitis, not specified as acute or chronic; F31.9 Bipolar disorder, unspecified; Z88.0 Allergy status to penicillin; Z79.82 Long term (current) use of aspirin; Z79.899 Other long term (current) drug therapy; Z98.84 Bariatric surgery status; Z90.49 Acquired absence of other specified parts of digestive tract; Z95.5 Presence of coronary angioplasty implant and graft; Z79.4 Long term (current) use of insulin; Z86.73 Personal history of transient ischemic attack (TIA), and cerebral infarction without residual deficits; Z89.422 Acquired absence of other left toe(s); Z89.421 Acquired absence of other right toe(s)
CPT/HCPCS: 0240U; 36415; 36416; 80048; 80053; 83036; 83735; 84100; 84484; 85025; 93306; J0360; J1644; J1940; U0003; U0005

== ENCOUNTER 2021-10-28 20:38 | Inpatient (IN) | payer OTHER ==
[2021-10-28 21:09] LABS: #Basophils 0.1 thou/uL (0.0-0.2); #Eosinphils 0.4 thou/uL (0.0-0.7); #Lymphocytes 1.4 thou/uL (1.20-3.40); #Monocytes 0.5 thou/uL (0.11-0.59); #Neutrophils 5.8 thou/uL (1.40-6.50); %Basophils 0.7 % (0.0-1.0); %Eosinophils 4.4 % (0.0-10.0); %Lymphocytes 17.5 % (21.0-51.0); %Monocytes 6.2 % (0.0-10.0); %Neutrophils 71.2 % (42.0-75.0); Hemoglobin 12.7 g/dL (12.0-16.0); Mean Corpuscular HGB CONC 31.9 g/dL (32.0-36.0); Mean Corpuscular Hemoglobin 28.4 pg (27.0-31.0); Mean Corpuscular Volume 89.1 fL (78.0-98.0); Mean Platelet Volume 9.4 fL (7.4-10.4); Platelet Count 255 thou/uL (130-400); RBC Distribution Width 12.2 % (11.5-14.5); Red Blood Cell (RBC) Count 4.47 mill/uL (4.20-5.40); White Blood Cell (WBC) Count 8.1 thou/uL (4.8-10.8)
[2021-10-28 21:26] LABS: INR-International Normal Ratio 0.9; Prothrombin Time 12.7 sec (12.0-14.7)
[2021-10-28 21:27] LABS: PTT 27.1 sec (22.9-36.1)
[2021-10-28 21:28] LABS: ALT (SGPT) 21 U/L (8-55); AST (SGOT) 27 U/L (5-34); Albumin 3.6 g/dL (3.5-5.0); Alkaline Phosphatase 126 U/L (40-110); Anion Gap 15 mmol/L (10-20); BUN (Urea Nitrogen) 15 mg/dL (7.0-18.7); Bilirubin, Total 0.2 mg/dL (0.2-1.2); Calc. Creatinine Clearance 0 mL/min (70-130); Calcium 8.7 mg/dL (7.8-10.44); Carbon Dioxide 24 mmol/L (22-29); Chloride 103 mmol/L (98-107); Globulin 3.3 g/dL (2.4-3.5); Glucose 153 mg/dL (70-105); Potassium 3.7 mmol/L (3.5-5.1); Protein, Total 6.9 g/dL (6.0-8.3); Sodium 138 mmol/L (136-145)
[2021-10-28 21:31] LABS: Bacteria/HPF None Seen HPF (None Seen); Bilirubin Negative (Negative); Blood, Urine Trace (Negative); Clarity Clear (Clear); Glucose, Urine (Dipstick) 500 mg/dL (Negative); Ketone, Urine Negative (Negative); Leukocyte Negative Leu/uL (Negative); Nitrite Negative (Negative); Protein, Urine (Dipstick) 200 mg/dL (Neg-Trace); RBC/HPF 0-3 HPF (0-3); Specific Gravity, Urine 1.011 (1.002-1.036); Squamous Epithelial None Seen HPF (0-3); Urobilinogen Normal mg/dL (Less than 2); WBC/HPF None Seen HPF (0-3)
[2021-10-28 21:36] LABS: Amphetamine Not Detected (NotDetected); Barbiturates Screen Not Detected (NotDetected); Benzodiazepine Screen Not Detected (NotDetected); Cocaine Metabolite Screen Not Detected (NotDetected); Methadone Not Detected (NotDetected); Methamphetamine Not Detected (NotDetected); Opiate Screen Not Detected (NotDetected); Oxycodone Screen Not Detected (NotDetected); Phencyclidine (PCP) Not Detected (NotDetected); THC/Cannabinoid Screen Not Detected (NotDetected); Tricyclic Screen Not Detected (NotDetected)
[2021-10-28] MEDS ORDERED: Labetalol HCl 100 MG/20 ML VIAL ONE (21:52)
[2021-10-28] MEDS ORDERED: Nitroglycerin 2% Ointment 1 INCH/1 GM Packet ONE (21:52)
[2021-10-28] MEDS ORDERED: hydrALAZINE 20 MG/ML VIAL SLOW IVP PRN (23:56)
[2021-10-28] MEDS ORDERED: Ondansetron PF 4 MG/2 ML Vial IVP PRN (23:56)
[2021-10-28] MEDS ORDERED: Acetaminophen 325 MG TAB PO PRN (23:56)
[2021-10-28] MEDS ORDERED: Labetalol HCl 100 MG/20 ML VIAL SLOW IVP PRN (23:56)
[2021-10-29] MEDS ORDERED: Dextrose 5% in Water 1,000 ML IV PRN (00:01)
[2021-10-29] MEDS ORDERED: Dextrose 50% Abboject 50 ML SYRINGE SLOW IVP PRN (00:01)
[2021-10-29] MEDS ORDERED: HumaLOG 300 UNITS/3 ML VIAL SC PRN ×2 (00:01)
[2021-10-29 00:29] VITALS: BMI 30.2
[2021-10-29 04:31] LABS: #Eosinphils 0.4 thou/uL (0.0-0.7); #Lymphocytes 1.6 thou/uL (1.20-3.40); #Monocytes 0.5 thou/uL (0.11-0.59); #Neutrophils 5.8 thou/uL (1.40-6.50); %Basophils 0.5 % (0.0-1.0); %Eosinophils 4.3 % (0.0-10.0); %Lymphocytes 18.8 % (21.0-51.0); %Monocytes 6.1 % (0.0-10.0); %Neutrophils 70.3 % (42.0-75.0); Hemoglobin 11.1 g/dL (12.0-16.0); Mean Corpuscular HGB CONC 33.1 g/dL (32.0-36.0); Mean Corpuscular Hemoglobin 29.3 pg (27.0-31.0); Mean Corpuscular Volume 88.6 fL (78.0-98.0); Mean Platelet Volume 9.9 fL (7.4-10.4); Platelet Count 202 thou/uL (130-400); RBC Distribution Width 12.1 % (11.5-14.5); Red Blood Cell (RBC) Count 3.78 mill/uL (4.20-5.40); White Blood Cell (WBC) Count 8.3 thou/uL (4.8-10.8)
[2021-10-29 04:55] LABS: Anion Gap 12 mmol/L (10-20); BUN (Urea Nitrogen) 16 mg/dL (7.0-18.7); Calc. Creatinine Clearance 74 mL/min (70-130); Carbon Dioxide 25 mmol/L (22-29); Chloride 102 mmol/L (98-107); Potassium 3.5 mmol/L (3.5-5.1); Sodium 135 mmol/L (136-145)
[2021-10-29] MEDS ORDERED: busPIRone HCl 10 MG TAB PO PRN (04:55)
[2021-10-29 04:56] LABS: Calcium 8.1 mg/dL (7.8-10.44); Cardiac Risk 3.1 (Less than 4.5); Cholesterol 183 mg/dl (< 200 Desired); Glucose 172 mg/dL (70-105); HDL Cholesterol 60 mg/dL (>60 Neg Risk); LDL Cholesterol, Calculated 98 mg/dL; Triglycerides 125 mg/dL (Less than 150)
[2021-10-29] MEDS: Vancomycin HCl 1.5 GM in Sodium Chloride 0.9% 250 ML 300 ML IVPB SCH (05:52)
[2021-10-29 06:05] LABS: Hemoglobin A1c 7.5 % (4.0-6.0)
[2021-10-29] MEDS: Valsartan 80 MG TAB PO SCH (09:32)
[2021-10-29] MEDS: NIFEdipine XL 30 MG TAB PO SCH (09:32)
[2021-10-29] MEDS: Hydrochlorothiazide 25 MG TAB PO SCH (09:32)
[2021-10-29] MEDS: Aspirin 81 mg Enteric Coated Tablet PO SCH (09:33)
[2021-10-29] MEDS: Multivit, Therapeutic 1 TAB PO SCH (09:33)
[2021-10-29] MEDS: Heparin 5,000 UNITS/ML VIAL SC SCH ×3 (09:33→20:02)
[2021-10-29] MEDS: PARoxetine CR 12.5 MG TAB PO SCH (10:54)
[2021-10-29 11:56] LABS: SARS-CoV-2 PCR by NAA Not Detected (NotDetected)
[2021-10-29] MEDS ORDERED: Clopidogrel Bisulfate 75 MG TAB PO SCH (12:30)
[2021-10-29] MEDS ORDERED: Furosemide 40 MG/4 ML VIAL SLOW IVP SCH (15:00)
[2021-10-29] MEDS ORDERED: Atorvastatin Calcium 40 MG TAB PO SCH (21:00)
[2021-10-30 05:03] LABS: #Eosinphils 0.4 thou/uL (0.0-0.7); #Lymphocytes 1.5 thou/uL (1.20-3.40); #Monocytes 0.5 thou/uL (0.11-0.59); #Neutrophils 3.7 thou/uL (1.40-6.50); %Basophils 0.6 % (0.0-1.0); %Lymphocytes 24.7 % (21.0-51.0); %Monocytes 7.5 % (0.0-10.0); %Neutrophils 60.3 % (42.0-75.0); Hemoglobin 11.5 g/dL (12.0-16.0); Mean Corpuscular HGB CONC 32.1 g/dL (32.0-36.0); Mean Corpuscular Hemoglobin 28.4 pg (27.0-31.0); Mean Corpuscular Volume 88.3 fL (78.0-98.0); Mean Platelet Volume 9.8 fL (7.4-10.4); Platelet Count 202 thou/uL (130-400); RBC Distribution Width 12.3 % (11.5-14.5); Red Blood Cell (RBC) Count 4.04 mill/uL (4.20-5.40); White Blood Cell (WBC) Count 6.1 thou/uL (4.8-10.8)
[2021-10-30] MEDS: Vancomycin HCl 1.5 GM in Sodium Chloride 0.9% 250 ML 300 ML IVPB SCH (05:07)
[2021-10-30 05:27] LABS: Anion Gap 11 mmol/L (10-20); BUN (Urea Nitrogen) 22 mg/dL (7.0-18.7); Calc. Creatinine Clearance 71 mL/min (70-130); Calcium 8.5 mg/dL (7.8-10.44); Carbon Dioxide 26 mmol/L (22-29); Chloride 102 mmol/L (98-107); Glucose 134 mg/dL (70-105); Potassium 4.1 mmol/L (3.5-5.1); Sodium 135 mmol/L (136-145)
[2021-10-30 07:11] VITALS: TEMP 98.1
[2021-10-30] MEDS ORDERED: Furosemide 40 MG/4 ML VIAL SLOW IVP SCH (07:45)
[2021-10-30] MEDS ORDERED: Clopidogrel Bisulfate 75 MG TAB PO SCH (09:00)
[2021-10-30] MEDS ORDERED: Metoprolol Tartrate 25 MG TAB PO SCH (09:00)
[2021-10-30] MEDS: Aspirin 81 mg Enteric Coated Tablet PO SCH (09:32)
[2021-10-30] MEDS: NIFEdipine XL 30 MG TAB PO SCH (09:32)
[2021-10-30] MEDS: Multivit, Therapeutic 1 TAB PO SCH (09:32)
[2021-10-30] MEDS: Hydrochlorothiazide 25 MG TAB PO SCH (09:32)
[2021-10-30] MEDS: Valsartan 80 MG TAB PO SCH (09:32)
[2021-10-30] MEDS: Heparin 5,000 UNITS/ML VIAL SC SCH (09:33)
[2021-10-30] MEDS: PARoxetine CR 12.5 MG TAB PO SCH (09:33)
[2021-10-30 11:49] VITALS: BP 193/90
== END 2021-10-30 13:45 | disposition home or self-care (01) | DRG 65 ==
LOC: ERS 20:38 → 2SW 23:17 → OBSVTOIN 10-29 09:23
PROVIDERS: ADMIT Internal Medicine; ATTEND Internal Medicine
DX: I63.89 Other cerebral infarction (principal); L03.115 Cellulitis of right lower limb; I50.32 Chronic diastolic (congestive) heart failure; I13.0 Hypertensive heart and chronic kidney disease with heart failure and stage 1 through stage 4 chronic kidney disease, or unspecified chronic kidney disease; I69.951 Hemiplegia and hemiparesis following unspecified cerebrovascular disease affecting right dominant side; Z20.822 Contact with and (suspected) exposure to COVID-19; I25.10 Atherosclerotic heart disease of native coronary artery without angina pectoris; E11.22 Type 2 diabetes mellitus with diabetic chronic kidney disease; N18.30 Chronic kidney disease, stage 3 unspecified; E11.51 Type 2 diabetes mellitus with diabetic peripheral angiopathy without gangrene; F41.9 Anxiety disorder, unspecified; E11.59 Type 2 diabetes mellitus with other circulatory complications; F32.A Depression, unspecified; Z88.0 Allergy status to penicillin; Z90.710 Acquired absence of both cervix and uterus; Z95.5 Presence of coronary angioplasty implant and graft; Z89.422 Acquired absence of other left toe(s); Z82.49 Family history of ischemic heart disease and other diseases of the circulatory system; Z79.82 Long term (current) use of aspirin; Z79.01 Long term (current) use of anticoagulants; Z79.899 Other long term (current) drug therapy
CPT/HCPCS: 36415; 36416; 70450; 70551; 80048; 80053; 80061; 80306; 81003; 81015; 83036; 84484; 85025; 85610; 85730; 93005; 93880; 94760; 96374; 96375; G0378; J1644; J1815; J1940; J3370; J7050; U0003; U0005

== ENCOUNTER 2022-03-08 11:11 | Emergency (ER) | payer OTHER ==
[2022-03-08 12:25] LABS: #Eosinphils 0.4 thou/uL (0.0-0.7); #Monocytes 0.3 thou/uL (0.11-0.59); #Neutrophils 5.2 thou/uL (1.40-6.50); %Basophils 0.6 % (0.0-1.0); %Eosinophils 5.1 % (0.0-10.0); %Lymphocytes 14.2 % (21.0-51.0); %Monocytes 4.9 % (0.0-10.0); %Neutrophils 75.1 % (42.0-75.0); Hemoglobin 11.8 g/dL (12.0-16.0); Mean Corpuscular Hemoglobin 29.1 pg (27.0-31.0); Mean Corpuscular Volume 90.8 fL (78.0-98.0); Mean Platelet Volume 10.8 fL (7.4-10.4); Platelet Count 174 thou/uL (130-400); RBC Distribution Width 11.4 % (11.5-14.5); Red Blood Cell (RBC) Count 4.07 mill/uL (4.20-5.40); White Blood Cell (WBC) Count 6.9 thou/uL (4.8-10.8)
[2022-03-08 12:38] LABS: ALT (SGPT) 23 U/L (8-55); AST (SGOT) 24 U/L (5-34); Albumin 3.3 g/dL (3.5-5.0); Alkaline Phosphatase 136 U/L (40-110); Anion Gap 15 mmol/L (10-20); BUN (Urea Nitrogen) 21 mg/dL (7.0-18.7); Bilirubin, Total 0.4 mg/dL (0.2-1.2); Calc. Creatinine Clearance 0 mL/min (70-130); Calcium 8.4 mg/dL (7.8-10.44); Carbon Dioxide 24 mmol/L (22-29); Chloride 100 mmol/L (98-107); Estimated GFR 38; Globulin 3.1 g/dL (2.4-3.5); Glucose 399 mg/dL (70-105); Potassium 4.6 mmol/L (3.5-5.1); Protein, Total 6.4 g/dL (6.0-8.3); Sodium 134 mmol/L (136-145)
[2022-03-08] MEDS ORDERED: Furosemide 40 MG/4 ML VIAL ONE (12:54)
[2022-03-08] MEDS ORDERED: Insulin Regular 300 UNITS/3 ML VIAL ONE (14:04)
== END 2022-03-08 15:48 | disposition home or self-care (01) ==
LOC: ERS 11:11
DX: I11.0 Hypertensive heart disease with heart failure (principal); I50.9 Heart failure, unspecified; E11.65 Type 2 diabetes mellitus with hyperglycemia; I25.2 Old myocardial infarction; R60.0 Localized edema; Z86.73 Personal history of transient ischemic attack (TIA), and cerebral infarction without residual deficits; Z79.01 Long term (current) use of anticoagulants; Z79.899 Other long term (current) drug therapy
CPT/HCPCS: 36416; 71045; 80053; 83880; 84484; 85025; 93005; 94640; 96374; 96375; J1815; J1940; J7620

== ENCOUNTER 2022-07-24 19:40 | Inpatient (IN) | payer OTHER ==
[2022-07-24] MEDS ORDERED: Furosemide 40 MG/4 ML VIAL ONE (20:26)
[2022-07-24] MEDS ORDERED: Nitroglycerin 2% Ointment 1 INCH/1 GM Packet ONE (20:26)
[2022-07-24 20:32] LABS: #Eosinphils 0.2 thou/uL (0.0-0.7); #Lymphocytes 1.4 thou/uL (1.20-3.40); #Monocytes 0.7 thou/uL (0.11-0.59); #Neutrophils 11.5 thou/uL (1.40-6.50); %Basophils 0.3 % (0.0-1.0); %Eosinophils 1.1 % (0.0-10.0); %Lymphocytes 10.3 % (21.0-51.0); %Neutrophils 83.3 % (42.0-75.0); Hemoglobin 13.7 g/dL (12.0-16.0); Mean Corpuscular HGB CONC 34.2 g/dL (32.0-36.0); Mean Corpuscular Hemoglobin 31.3 pg (27.0-31.0); Mean Corpuscular Volume 91.5 fl (78.0-98.0); Mean Platelet Volume 11.6 fL (7.4-10.4); Platelet Count 170 10x3/uL (130-400); RBC Distribution Width 11.5 % (11.5-14.5); Red Blood Cell (RBC) Count 4.38 mill/uL (4.20-5.40); White Blood Cell (WBC) Count 13.8 10x3/uL (4.8-10.8)
[2022-07-24 20:50] LABS: Albumin 3.5 g/dL (3.5-5.0)
[2022-07-24 20:51] LABS: Chloride 107 mmol/L (98-107); Sodium 138 mmol/L (136-145)
[2022-07-24 20:52] LABS: Calcium 8.2 mg/dL (7.8-10.44); Glucose 182 mg/dL (70-105)
[2022-07-24 20:53] LABS: Globulin 3.2 g/dL (2.4-3.5); Protein, Total 6.7 g/dL (6.0-8.3)
[2022-07-24 20:54] LABS: Bilirubin, Total 0.5 mg/dL (0.2-1.2); Carbon Dioxide 18 mmol/L (22-29)
[2022-07-24 20:55] LABS: Alkaline Phosphatase 121 U/L (40-110)
[2022-07-24 20:56] LABS: Calc. Creatinine Clearance 0 mL/min (70-130); Estimated GFR 51
[2022-07-24 20:57] LABS: BUN (Urea Nitrogen) 13 mg/dL (7.0-18.7)
[2022-07-24 20:58] LABS: ALT (SGPT) 21 U/L (8-55); AST (SGOT) 27 U/L (5-34)
[2022-07-24 21:00] LABS: Anion Gap 17 mmol/L (10-20)
[2022-07-24 21:13] LABS: CKMB 1.6 ng/mL (0-6.6)
[2022-07-24] MEDS ORDERED: Acetaminophen 650 MG Suppository PR PRN (22:54)
[2022-07-24] MEDS ORDERED: Ondansetron PF 4 MG/2 ML Vial IVP PRN (23:00)
[2022-07-24] MEDS ORDERED: Acetaminophen 325 MG TAB PO PRN (23:00)
[2022-07-24] MEDS ORDERED: Ondansetron ODT 4 MG TAB SL PRN (23:00)
[2022-07-24] MEDS ORDERED: hydrALAZINE 20 MG/ML VIAL SLOW IVP PRN ×2 (23:02→23:22)
[2022-07-24] MEDS ORDERED: Metoprolol Tartrate 50 MG TAB PO SCH (23:15)
[2022-07-24] MEDS ORDERED: Electrolyte Replacement Protocol 1 EACH FS SCH (23:15)
[2022-07-24 23:16] VITALS: BMI 29.5
[2022-07-24] MEDS ORDERED: Dextrose 50% Abboject 50 ML SYRINGE SLOW IVP PRN (23:21)
[2022-07-24] MEDS ORDERED: Dextrose 5% in Water 1,000 ML IV PRN (23:21)
[2022-07-24] MEDS ORDERED: HumaLOG 300 UNITS/3 ML VIAL SC PRN (23:21)
[2022-07-24] MEDS ORDERED: cloNIDine 0.1 MG TAB PO SCH (23:30)
[2022-07-25 00:03] LABS: Troponin I 0.048 ng/mL (< 0.028)
[2022-07-25 00:17] LABS: SARS-CoV-2 NAA Rapid Test Not Detected (NotDetected)
[2022-07-25] MEDS: Acetaminophen 325 MG TAB PO PRN ×2 (00:21→18:33)
[2022-07-25 00:23] LABS: Magnesium 1.5 mg/dL (1.6-2.6)
[2022-07-25] MEDS ORDERED: Magnesium 2 GM/50 ML(in water) 2 GM in Premix Bag 1 BAG IVPB SCH (02:00)
[2022-07-25 02:46] LABS: #Basophils 0.1 thou/uL (0.0-0.2); #Eosinphils 0.1 thou/uL (0.0-0.7); #Lymphocytes 1.3 thou/uL (1.20-3.40); #Monocytes 0.6 thou/uL (0.11-0.59); #Neutrophils 9.8 thou/uL (1.40-6.50); %Basophils 0.5 % (0.0-1.0); %Eosinophils 0.8 % (0.0-10.0); %Lymphocytes 11.2 % (21.0-51.0); %Monocytes 5.1 % (0.0-10.0); %Neutrophils 82.4 % (42.0-75.0); Mean Corpuscular HGB CONC 33.8 g/dL (32.0-36.0); Mean Corpuscular Hemoglobin 30.9 pg (27.0-31.0); Mean Corpuscular Volume 91.2 fl (78.0-98.0); Mean Platelet Volume 11.5 fL (7.4-10.4); Platelet Count 147 10x3/uL (130-400); RBC Distribution Width 11.4 % (11.5-14.5); Red Blood Cell (RBC) Count 3.88 mill/uL (4.20-5.40); White Blood Cell (WBC) Count 11.9 10x3/uL (4.8-10.8)
[2022-07-25 02:52] LABS: Troponin I 0.057 ng/mL (< 0.028)
[2022-07-25 03:31] LABS: Anion Gap 12 mmol/L (10-20); BUN (Urea Nitrogen) 14 mg/dL (7.0-18.7); Calc. Creatinine Clearance 62 mL/min (70-130); Calcium 7.9 mg/dL (7.8-10.44); Carbon Dioxide 22 mmol/L (22-29); Chloride 103 mmol/L (98-107); Estimated GFR 49; Glucose 285 mg/dL (70-105); Potassium 3.1 mmol/L (3.5-5.1); Sodium 134 mmol/L (136-145)
[2022-07-25] MEDS: Furosemide 100 MG/10 ML VIAL SLOW IVP SCH ×2 (05:42→14:46)
[2022-07-25] MEDS: HumaLOG 300 UNITS/3 ML VIAL SC PRN ×2 (05:52→18:33)
[2022-07-25] MEDS ORDERED: Potassium Chloride 20 MEQ TAB PO SCH (08:00)
[2022-07-25 09:47] LABS: Bacteria/HPF 2+ HPF (None Seen); Bilirubin Negative (Negative); Blood, Urine Negative (Negative); Clarity Clear (Clear); Glucose, Urine (Dipstick) Normal (Negative); Ketone, Urine Negative (Negative); Leukocyte Negative Leu/uL (Negative); Nitrite Negative (Negative); Protein, Urine (Dipstick) 20 mg/dL (Neg-Trace); RBC/HPF 0-3 HPF (0-3); Specific Gravity, Urine 1.006 (1.002-1.036); Squamous Epithelial None Seen HPF (0-3); Urobilinogen Normal mg/dL (Less than 2); WBC/HPF 0-3 HPF (0-3)
[2022-07-25] MEDS: Valsartan 80 MG TAB PO SCH (09:51)
[2022-07-25] MEDS: Enoxaparin Sodium 40 MG/0.4 ML SYRINGE SC SCH (09:52)
[2022-07-25] MEDS: Metoprolol Tartrate 50 MG TAB PO SCH ×2 (09:52→22:00)
[2022-07-25] MEDS: cloNIDine 0.1 MG TAB PO SCH ×2 (09:52→21:59)
[2022-07-25] MEDS ORDERED: busPIRone HCl 10 MG TAB PO PRN (17:34)
[2022-07-25 18:31] LABS: Hemoglobin A1c 8.8 % (4.0-6.0)
[2022-07-26 05:29] LABS: Anion Gap 11 mmol/L (10-20); BUN (Urea Nitrogen) 18 mg/dL (7.0-18.7); Calc. Creatinine Clearance 58 mL/min (70-130); Calcium 8.5 mg/dL (7.8-10.44); Carbon Dioxide 30 mmol/L (22-29); Chloride 98 mmol/L (98-107); Estimated GFR 44; Glucose 205 mg/dL (70-105); Magnesium 1.7 mg/dL (1.6-2.6); Potassium 3.2 mmol/L (3.5-5.1); Sodium 136 mmol/L (136-145)
[2022-07-26] MEDS: Furosemide 100 MG/10 ML VIAL SLOW IVP SCH ×2 (06:37→13:33)
[2022-07-26] MEDS ORDERED: Potassium Chloride 20 MEQ TAB PO SCH ×2 (08:00)
[2022-07-26] MEDS ORDERED: Magnesium 2 GM/50 ML(in water) 2 GM in Premix Bag 1 BAG IVPB SCH (08:00)
[2022-07-26] MEDS ORDERED: Clopidogrel Bisulfate 75 MG TAB PO SCH (09:00)
[2022-07-26] MEDS ORDERED: PARoxetine CR 12.5 MG TAB PO SCH (09:00)
[2022-07-26] MEDS ORDERED: cloNIDine 0.1 MG TAB PO SCH ×2 (09:00→21:00)
[2022-07-26] MEDS ORDERED: Multivit, Therapeutic 1 TAB PO SCH (09:00)
[2022-07-26] MEDS ORDERED: Aspirin 81 mg Enteric Coated Tablet PO SCH (09:00)
[2022-07-26] MEDS: Valsartan 80 MG TAB PO SCH (09:50)
[2022-07-26] MEDS: Enoxaparin Sodium 40 MG/0.4 ML SYRINGE SC SCH (09:51)
[2022-07-26] MEDS: Metoprolol Tartrate 50 MG TAB PO SCH (09:51)
[2022-07-26] MEDS: HumaLOG 300 UNITS/3 ML VIAL SC PRN (11:46)
[2022-07-26] MEDS ORDERED: NIFEdipine XL 60 MG TAB PO SCH ×2 (12:30→13:00)
[2022-07-26 15:55] VITALS: BP 119/58; TEMP 98
[2022-07-27] MEDS ORDERED: NIFEdipine XL 60 MG TAB PO SCH (09:00)
== END 2022-07-26 15:58 | disposition home or self-care (01) | DRG 291 ==
LOC: ERS 19:40 → 2NO 21:52
PROVIDERS: ADMIT Student in an Organized Health Care Education/Training Program; ATTEND Internal Medicine
DX: I13.0 Hypertensive heart and chronic kidney disease with heart failure and stage 1 through stage 4 chronic kidney disease, or unspecified chronic kidney disease (principal); I50.33 Acute on chronic diastolic (congestive) heart failure; I16.1 Hypertensive emergency; I25.2 Old myocardial infarction; Z20.822 Contact with and (suspected) exposure to COVID-19; M06.9 Rheumatoid arthritis, unspecified; F41.9 Anxiety disorder, unspecified; F31.9 Bipolar disorder, unspecified; E11.22 Type 2 diabetes mellitus with diabetic chronic kidney disease; I16.0 Hypertensive urgency; E11.59 Type 2 diabetes mellitus with other circulatory complications; E87.6 Hypokalemia; E83.42 Hypomagnesemia; N18.9 Chronic kidney disease, unspecified; I25.10 Atherosclerotic heart disease of native coronary artery without angina pectoris; Z88.0 Allergy status to penicillin; Z79.899 Other long term (current) drug therapy; Z79.82 Long term (current) use of aspirin; Z90.49 Acquired absence of other specified parts of digestive tract
CPT/HCPCS: 36415; 36416; 71045; 76770; 80048; 80053; 81001; 82088; 82553; 83036; 83735; 83880; 84244; 84484; 85025; 93005; 93798; 93975; 96374; 97139; J0360; J1650; J1815; J1940; J3475; U0002

== ENCOUNTER 2022-09-22 15:52 | Inpatient (IN) | payer OTHER ==
[2022-09-22 16:22] LABS: #Basophils 0.1 thou/uL (0.0-0.2); #Eosinphils 0.2 thou/uL (0.0-0.7); #Lymphocytes 1.5 thou/uL (1.20-3.40); #Monocytes 0.4 thou/uL (0.11-0.59); #Neutrophils 6.2 thou/uL (1.40-6.50); %Basophils 0.7 % (0.0-1.0); %Eosinophils 2.5 % (0.0-10.0); %Lymphocytes 18.6 % (21.0-51.0); %Monocytes 4.4 % (0.0-10.0); %Neutrophils 73.9 % (42.0-75.0); Hemoglobin 14.2 g/dL (12.0-16.0); Mean Corpuscular HGB CONC 33.5 g/dL (32.0-36.0); Mean Corpuscular Hemoglobin 30.8 pg (27.0-31.0); Mean Corpuscular Volume 92.1 fl (78.0-98.0); Mean Platelet Volume 11.2 fL (7.4-10.4); Platelet Count 210 10x3/uL (130-400); RBC Distribution Width 11.7 % (11.5-14.5); Red Blood Cell (RBC) Count 4.61 mill/uL (4.20-5.40); White Blood Cell (WBC) Count 8.3 10x3/uL (4.8-10.8)
[2022-09-22 16:42] LABS: ALT (SGPT) 16 U/L (8-55); AST (SGOT) 19 U/L (5-34); Albumin 3.5 g/dL (3.5-5.0); Alkaline Phosphatase 126 U/L (40-110); Anion Gap 13 mmol/L (10-20); BUN (Urea Nitrogen) 16 mg/dL (7.0-18.7); Bilirubin, Total 0.3 mg/dL (0.2-1.2); Calc. Creatinine Clearance 0 mL/min (70-130); Calcium 8.6 mg/dL (7.8-10.44); Carbon Dioxide 23 mmol/L (22-29); Chloride 100 mmol/L (98-107); Estimated GFR 34; Globulin 3.1 g/dL (2.4-3.5); Protein, Total 6.6 g/dL (6.0-8.3); Sodium 132 mmol/L (136-145)
[2022-09-22 16:49] LABS: Glucose 428 mg/dL (70-105)
[2022-09-22 17:05] LABS: CKMB 2.8 ng/mL (0-6.6)
[2022-09-22] MEDS ORDERED: Furosemide 100 MG/10 ML VIAL ONE (17:13)
[2022-09-22] MEDS ORDERED: Acetaminophen 650 MG Suppository PR PRN (18:27)
[2022-09-22] MEDS ORDERED: Acetaminophen 325 MG TAB PO PRN (18:27)
[2022-09-22] MEDS ORDERED: Dextrose 5% in Water 1,000 ML IV PRN (18:38)
[2022-09-22] MEDS ORDERED: Insulin Regular 300 UNITS/3 ML VIAL SC PRN (18:38)
[2022-09-22] MEDS ORDERED: Dextrose 50% Abboject 50 ML SYRINGE SLOW IVP PRN (18:38)
[2022-09-22 19:17] LABS: SARS-CoV-2 NAA Rapid Test Not Detected (NotDetected)
[2022-09-22 19:44] LABS: Magnesium 1.8 mg/dL (1.6-2.6)
[2022-09-22 19:50] LABS: Troponin I 0.117 ng/mL (< 0.028)
[2022-09-22] MEDS ORDERED: Metoprolol Tartrate 50 MG TAB ONE (20:45)
[2022-09-22 22:42] LABS: Troponin I 0.098 ng/mL (< 0.028)
[2022-09-22 22:59] VITALS: BMI 29.5
[2022-09-22] MEDS: Metoprolol Tartrate 50 MG TAB PO SCH (23:20)
[2022-09-23 04:52] LABS: #Eosinphils 0.4 thou/uL (0.0-0.7); #Monocytes 0.5 thou/uL (0.11-0.59); %Basophils 0.8 % (0.0-1.0); %Eosinophils 7.4 % (0.0-10.0); %Lymphocytes 33.8 % (21.0-51.0); %Monocytes 8.6 % (0.0-10.0); %Neutrophils 49.4 % (42.0-75.0); Hemoglobin 13.1 g/dL (12.0-16.0); Mean Corpuscular HGB CONC 33.8 g/dL (32.0-36.0); Mean Corpuscular Hemoglobin 31.5 pg (27.0-31.0); Mean Corpuscular Volume 93.3 fl (78.0-98.0); Mean Platelet Volume 11.1 fL (7.4-10.4); Platelet Count 210 10x3/uL (130-400); RBC Distribution Width 11.7 % (11.5-14.5); Red Blood Cell (RBC) Count 4.14 mill/uL (4.20-5.40)
[2022-09-23 05:21] LABS: Anion Gap 15 mmol/L (10-20); BUN (Urea Nitrogen) 21 mg/dL (7.0-18.7); Calc. Creatinine Clearance 50 mL/min (70-130); Calcium 8.6 mg/dL (7.8-10.44); Carbon Dioxide 26 mmol/L (22-29); Chloride 100 mmol/L (98-107); Estimated GFR 37; Glucose 205 mg/dL (70-105); Sodium 137 mmol/L (136-145)
[2022-09-23] MEDS: Furosemide 40 MG/4 ML VIAL SLOW IVP SCH ×2 (05:45→13:06)
[2022-09-23] MEDS: Insulin Regular 300 UNITS/3 ML VIAL SC PRN (05:45)
[2022-09-23] MEDS: Aspirin 81 mg Enteric Coated Tablet PO SCH (09:24)
[2022-09-23] MEDS: Clopidogrel Bisulfate 75 MG TAB PO SCH (09:24)
[2022-09-23] MEDS: Metoprolol Tartrate 50 MG TAB PO SCH ×2 (09:24→20:15)
[2022-09-23] MEDS ORDERED: Spironolactone 25 MG TAB PO SCH (12:15)
[2022-09-23] MEDS: cloNIDine 0.2 MG TAB PO SCH ×2 (20:13→20:14)
[2022-09-24 05:11] LABS: #Eosinphils 0.4 thou/uL (0.0-0.7); #Lymphocytes 1.9 thou/uL (1.20-3.40); #Monocytes 0.4 thou/uL (0.11-0.59); #Neutrophils 3.1 thou/uL (1.40-6.50); %Basophils 0.8 % (0.0-1.0); %Eosinophils 7.1 % (0.0-10.0); %Lymphocytes 32.5 % (21.0-51.0); %Monocytes 6.7 % (0.0-10.0); %Neutrophils 52.9 % (42.0-75.0); Hemoglobin 12.8 g/dL (12.0-16.0); Mean Corpuscular HGB CONC 32.8 g/dL (32.0-36.0); Mean Corpuscular Hemoglobin 30.4 pg (27.0-31.0); Mean Corpuscular Volume 92.6 fl (78.0-98.0); Mean Platelet Volume 10.9 fL (7.4-10.4); Platelet Count 188 10x3/uL (130-400); RBC Distribution Width 11.6 % (11.5-14.5); White Blood Cell (WBC) Count 5.8 10x3/uL (4.8-10.8)
[2022-09-24 05:26] LABS: Anion Gap 10 mmol/L (10-20); BUN (Urea Nitrogen) 25 mg/dL (7.0-18.7); Calc. Creatinine Clearance 51 mL/min (70-130); Calcium 8.2 mg/dL (7.8-10.44); Carbon Dioxide 31 mmol/L (22-29); Chloride 96 mmol/L (98-107); Estimated GFR 38; Glucose 273 mg/dL (70-105); Potassium 3.6 mmol/L (3.5-5.1); Sodium 133 mmol/L (136-145)
[2022-09-24] MEDS: Furosemide 40 MG/4 ML VIAL SLOW IVP SCH (08:09)
[2022-09-24] MEDS: Aspirin 81 mg Enteric Coated Tablet PO SCH (08:56)
[2022-09-24] MEDS: NIFEdipine XL 30 MG TAB PO SCH (08:56)
[2022-09-24] MEDS: Alogliptin 6.25 MG TAB PO SCH (08:56)
[2022-09-24] MEDS: PARoxetine CR 12.5 MG TAB PO SCH (08:56)
[2022-09-24] MEDS: Magnesium Oxide 250 MG TAB PO SCH (08:57)
[2022-09-24] MEDS: Potassium Chloride 20 MEQ TAB PO SCH (08:57)
[2022-09-24] MEDS: Metoprolol Tartrate 50 MG TAB PO SCH ×2 (08:57→20:31)
[2022-09-24] MEDS: Clopidogrel Bisulfate 75 MG TAB PO SCH (08:57)
[2022-09-24] MEDS: Spironolactone 25 MG TAB PO SCH (08:58)
[2022-09-24] MEDS: Multivit, Therapeutic 1 TAB PO SCH (08:58)
[2022-09-24] MEDS: Ferrous Sulfate 325 MG TAB PO SCH (08:58)
[2022-09-24] MEDS ORDERED: NIFEdipine XL 60 MG TAB PO SCH (09:00)
[2022-09-24] MEDS ORDERED: PAROXETINE HCL PO SCH (09:00)
[2022-09-24] MEDS ORDERED: Non-Formulary Item 1 EACH (Sitagliptin Phosphate [Januvia] 50 MG Tab) PO SCH (09:00)
[2022-09-24] MEDS ORDERED: Non-Formulary Item 1 EACH (Ferrous Sulfate [Ferrous Sulfate] 325 MG Tablet) PO SCH (09:00)
[2022-09-24] MEDS ORDERED: Non-Formulary Item 1 EACH (Magnesium Oxide [Magnesium] 500 MG Capsule) PO SCH (09:00)
[2022-09-24] MEDS ORDERED: glipiZIDE 5 MG TAB PO SCH (11:45)
[2022-09-24] MEDS: Insulin Regular 300 UNITS/3 ML VIAL SC PRN (11:51)
[2022-09-24] MEDS ORDERED: Furosemide 20 MG TAB PO SCH (14:00)
[2022-09-24] MEDS: Furosemide 40 MG TAB PO SCH (15:09)
[2022-09-24] MEDS: cloNIDine 0.2 MG TAB PO SCH (20:31)
[2022-09-25 05:00] LABS: #Eosinphils 0.4 thou/uL (0.0-0.7); #Lymphocytes 1.9 thou/uL (1.20-3.40); #Monocytes 0.5 thou/uL (0.11-0.59); %Basophils 0.3 % (0.0-1.0); %Eosinophils 5.4 % (0.0-10.0); %Lymphocytes 28.4 % (21.0-51.0); %Monocytes 7.2 % (0.0-10.0); %Neutrophils 58.7 % (42.0-75.0); Hemoglobin 13.4 g/dL (12.0-16.0); Mean Corpuscular HGB CONC 33.7 g/dL (32.0-36.0); Mean Corpuscular Hemoglobin 31.1 pg (27.0-31.0); Mean Corpuscular Volume 92.3 fl (78.0-98.0); Mean Platelet Volume 11.1 fL (7.4-10.4); Platelet Count 183 10x3/uL (130-400); RBC Distribution Width 11.7 % (11.5-14.5); Red Blood Cell (RBC) Count 4.31 mill/uL (4.20-5.40); White Blood Cell (WBC) Count 6.8 10x3/uL (4.8-10.8)
[2022-09-25 05:26] LABS: Anion Gap 12 mmol/L (10-20); BUN (Urea Nitrogen) 27 mg/dL (7.0-18.7); Calc. Creatinine Clearance 49 mL/min (70-130); Calcium 8.4 mg/dL (7.8-10.44); Carbon Dioxide 28 mmol/L (22-29); Chloride 96 mmol/L (98-107); Estimated GFR 36; Glucose 240 mg/dL (70-105); Potassium 4.2 mmol/L (3.5-5.1); Sodium 132 mmol/L (136-145)
[2022-09-25] MEDS ORDERED: glipiZIDE 5 MG TAB PO SCH (07:30)
[2022-09-25] MEDS: Alogliptin 6.25 MG TAB PO SCH (08:58)
[2022-09-25] MEDS: Clopidogrel Bisulfate 75 MG TAB PO SCH (08:58)
[2022-09-25] MEDS: NIFEdipine XL 30 MG TAB PO SCH (08:58)
[2022-09-25] MEDS: Aspirin 81 mg Enteric Coated Tablet PO SCH (08:58)
[2022-09-25] MEDS: Magnesium Oxide 250 MG TAB PO SCH (08:58)
[2022-09-25] MEDS: Spironolactone 25 MG TAB PO SCH (08:58)
[2022-09-25] MEDS: Ferrous Sulfate 325 MG TAB PO SCH (08:58)
[2022-09-25] MEDS: Potassium Chloride 20 MEQ TAB PO SCH (08:58)
[2022-09-25] MEDS: Metoprolol Tartrate 50 MG TAB PO SCH (08:59)
[2022-09-25] MEDS: Furosemide 40 MG TAB PO SCH (08:59)
[2022-09-25] MEDS: Multivit, Therapeutic 1 TAB PO SCH (08:59)
[2022-09-25] MEDS: cloNIDine 0.2 MG TAB PO SCH (08:59)
[2022-09-25] MEDS ORDERED: FLU VACC QS2022-23(6MOS UP)/PF 60 MCG/0.5 ML SYRINGE IM ONE (09:00)
[2022-09-25] MEDS: PARoxetine CR 12.5 MG TAB PO SCH (09:04)
[2022-09-25 11:35] VITALS: BP 112/62; TEMP 97.5
== END 2022-09-25 12:05 | disposition home or self-care (01) | DRG 291 ==
LOC: ERS 15:52 → 2NO 18:17
PROVIDERS: ADMIT Internal Medicine; ATTEND Internal Medicine
DX: I13.0 Hypertensive heart and chronic kidney disease with heart failure and stage 1 through stage 4 chronic kidney disease, or unspecified chronic kidney disease (principal); I50.33 Acute on chronic diastolic (congestive) heart failure; I69.951 Hemiplegia and hemiparesis following unspecified cerebrovascular disease affecting right dominant side; N17.9 Acute kidney failure, unspecified; E78.5 Hyperlipidemia, unspecified; M06.9 Rheumatoid arthritis, unspecified; E11.22 Type 2 diabetes mellitus with diabetic chronic kidney disease; N18.30 Chronic kidney disease, stage 3 unspecified; I25.10 Atherosclerotic heart disease of native coronary artery without angina pectoris; Z88.0 Allergy status to penicillin; Z79.84 Long term (current) use of oral hypoglycemic drugs; Z79.899 Other long term (current) drug therapy; I25.2 Old myocardial infarction; Z90.49 Acquired absence of other specified parts of digestive tract
CPT/HCPCS: 36415; 36416; 71045; 80048; 80053; 82553; 83735; 83880; 84484; 85025; 93005; 93306; 96372; 96374; J1650; J1815; J1940; U0002

== ENCOUNTER 2022-10-27 23:48 | Inpatient (IN) | payer OTHER ==
[2022-10-27] MEDS ORDERED: Nitroglycerin 50 MG/250 ML BOT 250 ML ONE (23:56)
[2022-10-27] MEDS ORDERED: Labetalol HCl 100 MG/20 ML VIAL ONE (23:56)
[2022-10-27] MEDS ORDERED: Furosemide 100 MG/10 ML VIAL ONE (23:56)
[2022-10-27] MEDS ORDERED: Ondansetron PF 4 MG/2 ML Vial ONE (23:57)
[2022-10-28] MEDS ORDERED: Ondansetron PF 4 MG/2 ML Vial ONE (00:05)
[2022-10-28] MEDS ORDERED: fentaNYL 50 mcg/mL 1 mL Vial ONE (00:08)
[2022-10-28 00:10] LABS: Actual Bicarbonate (HCO3a) 16.8 mEq/L (22-28); Analyzer IN Cardio ER; Base Excess (BEa) -9.1 mEq/L (-2.0 to +3.0); CO2 Tension 36.3 mmHg (35.0-45.0); Calcium, Ionized (arterial) 1.13 mmol/L (1.12-1.30); Carboxyhemoglobin (COHb) 0.9 gm% (0.0-3.0); Hemoglobin (Hb) 14.6 g/dL (12.0-16.0); O2 Tension (PaO2), arterial 89.4 mmHg (80.0-100.0); Potassium - ABG Lab 5.15 mmol/L (3.70-5.30); Puncture Site RRA; pH, Arterial 7.28 (7.35-7.45)
[2022-10-28 00:11] LABS: ALV-art Gradient 221.725 mmHg (0-20)
[2022-10-28 00:22] LABS: #Basophils 0.1 thou/uL (0.0-0.2); #Eosinphils 0.2 thou/uL (0.0-0.7); #Lymphocytes 2.7 thou/uL (1.20-3.40); #Monocytes 0.6 thou/uL (0.11-0.59); #Neutrophils 13.5 thou/uL (1.40-6.50); %Basophils 0.6 % (0.0-1.0); %Eosinophils 1.1 % (0.0-10.0); %Lymphocytes 15.6 % (21.0-51.0); %Monocytes 3.6 % (0.0-10.0); %Neutrophils 79.1 % (42.0-75.0); Hemoglobin 14.3 g/dL (12.0-16.0); Mean Corpuscular HGB CONC 33.4 g/dL (32.0-36.0); Mean Corpuscular Hemoglobin 30.6 pg (27.0-31.0); Mean Corpuscular Volume 91.7 fl (78.0-98.0); Mean Platelet Volume 11.2 fL (7.4-10.4); Platelet Count 232 10x3/uL (130-400); RBC Distribution Width 11.7 % (11.5-14.5); Red Blood Cell (RBC) Count 4.67 mill/uL (4.20-5.40); White Blood Cell (WBC) Count 17.1 10x3/uL (4.8-10.8)
[2022-10-28] MEDS ORDERED: Promethazine HCl 12.5 MG in Sodium Chloride 0.9% 50 ML IVPB SCH (00:30)
[2022-10-28 01:03] LABS: ALT (SGPT) 21 U/L (8-55); AST (SGOT) 21 U/L (5-34); Albumin 3.7 g/dL (3.5-5.0); Alkaline Phosphatase 140 U/L (40-110); Anion Gap 16 mmol/L (10-20); BUN (Urea Nitrogen) 27 mg/dL (7.0-18.7); Bilirubin, Total 0.2 mg/dL (0.2-1.2); Calc. Creatinine Clearance 0 mL/min (70-130); Calcium 8.7 mg/dL (7.8-10.44); Carbon Dioxide 15 mmol/L (22-29); Chloride 107 mmol/L (98-107); Estimated GFR 37; Globulin 3.4 g/dL (2.4-3.5); Potassium 4.7 mmol/L (3.5-5.1); Protein, Total 7.1 g/dL (6.0-8.3); Sodium 133 mmol/L (136-145)
[2022-10-28 01:06] LABS: CKMB 2.4 ng/mL (0-6.6)
[2022-10-28 01:09] LABS: Glucose 482 mg/dL (70-105)
[2022-10-28 02:16] LABS: SARS-CoV-2 NAA Rapid Test Not Detected (NotDetected)
[2022-10-28] MEDS ORDERED: Insulin Regular 300 UNITS/3 ML VIAL ONE (02:20)
[2022-10-28] MEDS ORDERED: Aspirin Chewable 81 MG TAB ONE (02:20)
[2022-10-28] MEDS ORDERED: Magnesium 2 GM/50 ML BAG (IN WATER) ONE (02:20)
[2022-10-28] MEDS ORDERED: Electrolyte Replacement Protocol 1 EACH IVPB SCH (02:37)
[2022-10-28] MEDS ORDERED: HumaLOG 300 UNITS/3 ML VIAL SC PRN (02:37)
[2022-10-28] MEDS ORDERED: Senokot S 8.6-50 MG TAB PO PRN (02:44)
[2022-10-28] MEDS ORDERED: Acetaminophen 325 MG TAB PO PRN (02:44)
[2022-10-28] MEDS ORDERED: Ondansetron PF 4 MG/2 ML Vial IVP PRN (02:44)
[2022-10-28] MEDS ORDERED: Ondansetron ODT 4 MG TAB PO PRN (02:44)
[2022-10-28] MEDS ORDERED: Nitroglycerin 50 MG/250 ML BOT 250 ML IVPB SCH (02:45)
[2022-10-28] MEDS ORDERED: Vancomycin 1 GM/200 ML (FROZEN) BAG ONE (02:46)
[2022-10-28] MEDS ORDERED: Dextrose 50% Abboject 50 ML SYRINGE IVP PRN ×2 (03:00→19:15)
[2022-10-28] MEDS ORDERED: Dextrose 5% in Water 1,000 ML IV PRN ×3 (03:00→19:15)
[2022-10-28] MEDS ORDERED: hydrALAZINE 20 MG/ML VIAL SLOW IVP PRN (03:21)
[2022-10-28 03:36] LABS: Lactic Acid 2.4 mmol/L (0.5-2.2)
[2022-10-28 03:47] LABS: Bilirubin Negative (Negative); Blood, Urine Negative (Negative); Clarity Clear (Clear); Glucose, Urine (Dipstick) >=1000 mg/dL (Negative); Ketone, Urine Negative (Negative); Leukocyte Negative Leu/uL (Negative); Nitrite Negative (Negative); Protein, Urine (Dipstick) 20 mg/dL (Neg-Trace); Specific Gravity, Urine 1.005 (1.002-1.036); Urobilinogen Normal mg/dL (Less than 2)
[2022-10-28 03:48] LABS: Troponin I 0.739 ng/mL (< 0.028)
[2022-10-28] MEDS ORDERED: Aztreonam 1 GM in Sodium Chloride 0.9% 100 ML IVPB SCH (04:00)
[2022-10-28 05:27] LABS: #Lymphocytes 0.8 thou/uL (1.20-3.40); #Monocytes 0.7 thou/uL (0.11-0.59); #Neutrophils 12.4 thou/uL (1.40-6.50); %Basophils 0.2 % (0.0-1.0); %Eosinophils 0.1 % (0.0-10.0); %Lymphocytes 5.6 % (21.0-51.0); %Monocytes 4.7 % (0.0-10.0); %Neutrophils 89.4 % (42.0-75.0); Hemoglobin 13.7 g/dL (12.0-16.0); Mean Corpuscular HGB CONC 32.1 g/dL (32.0-36.0); Mean Corpuscular Hemoglobin 29.6 pg (27.0-31.0); Mean Corpuscular Volume 92.2 fl (78.0-98.0); Mean Platelet Volume 10.5 fL (7.4-10.4); Platelet Count 215 10x3/uL (130-400); RBC Distribution Width 11.5 % (11.5-14.5); Red Blood Cell (RBC) Count 4.63 mill/uL (4.20-5.40); White Blood Cell (WBC) Count 13.9 10x3/uL (4.8-10.8)
[2022-10-28 05:43] LABS: Lactic Acid 1.9 mmol/L (0.5-2.2)
[2022-10-28 05:49] LABS: ALT (SGPT) 18 U/L (8-55); AST (SGOT) 20 U/L (5-34); Albumin 3.5 g/dL (3.5-5.0); Alkaline Phosphatase 128 U/L (40-110); Anion Gap 15 mmol/L (10-20); BUN (Urea Nitrogen) 30 mg/dL (7.0-18.7); Bilirubin, Total 0.3 mg/dL (0.2-1.2); Calc. Creatinine Clearance 0 mL/min (70-130); Calcium 8.7 mg/dL (7.8-10.44); Carbon Dioxide 16 mmol/L (22-29); Chloride 105 mmol/L (98-107); Estimated GFR 38; Globulin 3.2 g/dL (2.4-3.5); Magnesium 2.2 mg/dL (1.6-2.6); Potassium 5.1 mmol/L (3.5-5.1); Protein, Total 6.7 g/dL (6.0-8.3); Sodium 131 mmol/L (136-145)
[2022-10-28 05:53] LABS: Glucose 455 mg/dL (70-105)
[2022-10-28 06:35] LABS: Troponin I 1.586 ng/mL (< 0.028)
[2022-10-28] MEDS ORDERED: Morphine 4 MG/ML VIAL ONE (07:39)
[2022-10-28] MEDS: Morphine 4 MG/ML VIAL SLOW IVP PRN ×2 (07:44→13:20)
[2022-10-28] MEDS ORDERED: Metoclopramide HCl 10 MG/2 ML VIAL ONE (07:45)
[2022-10-28] MEDS ORDERED: Metoclopramide HCl 10 MG/2 ML VIAL IVP PRN (07:58)
[2022-10-28] MEDS ORDERED: Insulin Regular 300 UNITS/3 ML VIAL SC PRN ×2 (08:16)
[2022-10-28] MEDS ORDERED: Heparin 10,000 UNITS/ 10 ML VIAL ONE (08:32)
[2022-10-28] MEDS ORDERED: Heparin 25,000 units/D5W 500 ML ONE (08:32)
[2022-10-28] MEDS ORDERED: HUMULIN R 100 UNITS in Sodium Chloride 0.9% 100 ML IVPB SCH (08:45)
[2022-10-28] MEDS: Heparin 10,000 UNITS/ 10 ML VIAL SLOW IVP SCH ×2 (08:48→16:50)
[2022-10-28] MEDS: Heparin 25,000 units/D5W 500 ML IV SCH (08:48)
[2022-10-28] MEDS ORDERED: Non-Formulary Item 1 EACH (Sitagliptin Phosphate [Januvia] 50 MG Tab) PO SCH (09:00)
[2022-10-28] MEDS ORDERED: Insulin Glargine 30 UNITS/0.3 ML VIAL SC SCH ×2 (09:00→21:00)
[2022-10-28] MEDS ORDERED: PARoxetine CR 12.5 MG TAB PO SCH (09:00)
[2022-10-28] MEDS ORDERED: Heparin 5,000 UNITS/ML VIAL SC SCH (09:00)
[2022-10-28] MEDS ORDERED: Spironolactone 25 MG TAB PO SCH (09:00)
[2022-10-28] MEDS ORDERED: Alogliptin 6.25 MG TAB PO SCH (09:00)
[2022-10-28] MEDS ORDERED: Metoprolol Tartrate 50 MG TAB PO SCH (09:00)
[2022-10-28] MEDS ORDERED: Nitroglycerin 50 MG/250 ML BOT 250 ML ONE (09:09)
[2022-10-28] MEDS: Nitroglycerin 50 MG/250 ML BOT 250 ML IVPB SCH (09:15)
[2022-10-28] MEDS ORDERED: Furosemide 40 MG TAB ONE (10:42)
[2022-10-28] MEDS ORDERED: Potassium Chloride 20 MEQ TAB ONE (10:42)
[2022-10-28] MEDS ORDERED: Famotidine/PF 20 mg/2ml Vial ONE (10:42)
[2022-10-28] MEDS ORDERED: Metoprolol Tartrate 25 MG TAB ONE (10:43)
[2022-10-28] MEDS ORDERED: NIFEdipine XL 30 MG TAB ONE (10:50)
[2022-10-28] MEDS: NIFEdipine XL 30 MG TAB PO SCH (10:55)
[2022-10-28] MEDS: Potassium Chloride 20 MEQ TAB PO SCH (11:05)
[2022-10-28] MEDS: Clopidogrel Bisulfate 75 MG TAB PO SCH (11:05)
[2022-10-28] MEDS: Famotidine/PF 20 mg/2ml Vial SLOW IVP SCH ×2 (11:06→21:48)
[2022-10-28] MEDS: Furosemide 40 MG TAB PO SCH ×2 (11:06→21:48)
[2022-10-28] MEDS: Multivit, Therapeutic 1 TAB PO SCH (11:06)
[2022-10-28] MEDS: Magnesium Oxide 250 MG TAB PO SCH (11:06)
[2022-10-28 12:16] LABS: Prothrombin Time 13.9 sec (12.0-14.7)
[2022-10-28 12:17] LABS: PTT 47.3 sec (22.9-36.1)
[2022-10-28] MEDS ORDERED: Iopamidol-370 76% 500 ML MDV (1 ML CHARGE) ONE (12:58)
[2022-10-28] MEDS: Aztreonam 1 GM in Sodium Chloride 0.9% 100 ML IVPB SCH ×2 (13:04→20:08)
[2022-10-28] MEDS ORDERED: Magnesium 2 GM/50 ML(in water) 1 GM in Premix Bag 1 BAG IVPB SCH (13:15)
[2022-10-28] MEDS ORDERED: Methocarbamol 0.5 GM in Sodium Chloride 0.9% 100 ML IVPB PRN (13:15)
[2022-10-28 13:24] VITALS: BMI 29.1
[2022-10-28 15:10] LABS: Prothrombin Time 13.4 sec (12.0-14.7)
[2022-10-28 15:10] LABS: Amphetamine Not Detected (NotDetected); Barbiturates Screen Not Detected (NotDetected); Benzodiazepine Screen Not Detected (NotDetected); Cocaine Metabolite Screen Not Detected (NotDetected); Methadone Not Detected (NotDetected); Methamphetamine Not Detected (NotDetected); Opiate Screen Not Detected (NotDetected); Oxycodone Screen Not Detected (NotDetected); Phencyclidine (PCP) Not Detected (NotDetected); THC/Cannabinoid Screen Not Detected (NotDetected); Tricyclic Screen Not Detected (NotDetected)
[2022-10-28 15:11] LABS: PTT 48.8 sec (22.9-36.1)
[2022-10-28 15:13] LABS: Anion Gap 13 mmol/L (10-20); BUN (Urea Nitrogen) 29 mg/dL (7.0-18.7); Calc. Creatinine Clearance 53 mL/min (70-130); Calcium 8.9 mg/dL (7.8-10.44); Carbon Dioxide 19 mmol/L (22-29); Chloride 104 mmol/L (98-107); Estimated GFR 41; Glucose 184 mg/dL (70-105); Potassium 4.4 mmol/L (3.5-5.1); Sodium 132 mmol/L (136-145)
[2022-10-28 15:14] LABS: Phosphorus 2.7 mg/dL (2.3-4.7)
[2022-10-28 15:26] LABS: Troponin I 2.118 ng/mL (< 0.028)
[2022-10-28] MEDS ORDERED: HumaLOG 300 UNITS/3 ML VIAL SC SCH (19:15)
[2022-10-28 19:51] LABS: Troponin I 1.815 ng/mL (< 0.028)
[2022-10-28] MEDS: HumaLOG 300 UNITS/3 ML VIAL SC PRN (21:49)
[2022-10-28] MEDS: Labetalol HCl 100 MG/20 ML VIAL SLOW IVP PRN (21:49)
[2022-10-28 21:50] LABS: INR-International Normal Ratio 1.1; Prothrombin Time 15.1 sec (12.0-14.7)
[2022-10-28 21:53] LABS: PTT 73.3 sec (22.9-36.1)
[2022-10-29] MEDS: Aztreonam 1 GM in Sodium Chloride 0.9% 100 ML IVPB SCH ×3 (04:11→20:37)
[2022-10-29 04:24] LABS: ALT (SGPT) 12 U/L (8-55); AST (SGOT) 16 U/L (5-34); Albumin 3.1 g/dL (3.5-5.0); Alkaline Phosphatase 105 U/L (40-110); Anion Gap 13 mmol/L (10-20); BUN (Urea Nitrogen) 31 mg/dL (7.0-18.7); Bilirubin, Total 0.4 mg/dL (0.2-1.2); Calc. Creatinine Clearance 50 mL/min (70-130); Carbon Dioxide 24 mmol/L (22-29); Chloride 101 mmol/L (98-107); Estimated GFR 38; Globulin 2.7 g/dL (2.4-3.5); Glucose 146 mg/dL (70-105); Protein, Total 5.8 g/dL (6.0-8.3); Sodium 134 mmol/L (136-145)
[2022-10-29] MEDS ORDERED: Magnesium 2 GM/50 ML(in water) 2 GM in Premix Bag 1 BAG IVPB SCH (08:00)
[2022-10-29] MEDS: Heparin 25,000 units/D5W 500 ML IV SCH (08:59)
[2022-10-29] MEDS: Famotidine/PF 20 mg/2ml Vial SLOW IVP SCH ×2 (09:03→21:25)
[2022-10-29] MEDS: Multivit, Therapeutic 1 TAB PO SCH (09:18)
[2022-10-29] MEDS: Cholecalciferol (Vitamin D3) 400 UNITS TAB PO SCH (09:19)
[2022-10-29] MEDS: Furosemide 40 MG TAB PO SCH (09:19)
[2022-10-29] MEDS: NIFEdipine XL 30 MG TAB PO SCH (09:20)
[2022-10-29] MEDS: Clopidogrel Bisulfate 75 MG TAB PO SCH (09:21)
[2022-10-29] MEDS: Potassium Chloride 20 MEQ TAB PO SCH (09:22)
[2022-10-29] MEDS: Magnesium Oxide 250 MG TAB PO SCH (09:22)
[2022-10-29] MEDS: Insulin Glargine 30 UNITS/0.3 ML VIAL SC SCH (09:23)
[2022-10-29] MEDS: Labetalol HCl 100 MG/20 ML VIAL SLOW IVP PRN (09:39)
[2022-10-29] MEDS: HumaLOG 300 UNITS/3 ML VIAL SC PRN ×3 (13:28→23:00)
[2022-10-29] MEDS: Nitroglycerin 50 MG/250 ML BOT 250 ML IVPB SCH (14:04)
[2022-10-29 17:31] LABS: Creatinine, Urine 44.76 mg/dL (47-110); Microalbumin Urine 40.5 mg/dL (0.5-50.0); Microalbumin/Creat Ratio 904.8 mg/g (Less than 30)
[2022-10-30] MEDS: HumaLOG 300 UNITS/3 ML VIAL SC PRN ×2 (03:38→12:30)
[2022-10-30] MEDS: Aztreonam 1 GM in Sodium Chloride 0.9% 100 ML IVPB SCH ×3 (04:05→20:33)
[2022-10-30] MEDS: Heparin 10,000 UNITS/ 10 ML VIAL SLOW IVP SCH (04:43)
[2022-10-30 04:44] LABS: ALT (SGPT) 12 U/L (8-55); AST (SGOT) 15 U/L (5-34); Alkaline Phosphatase 101 U/L (40-110); Anion Gap 13 mmol/L (10-20); BUN (Urea Nitrogen) 31 mg/dL (7.0-18.7); Bilirubin, Total 0.3 mg/dL (0.2-1.2); Calc. Creatinine Clearance 44 mL/min (70-130); Calcium 8.5 mg/dL (7.8-10.44); Carbon Dioxide 24 mmol/L (22-29); Chloride 99 mmol/L (98-107); Estimated GFR 33; Globulin 2.7 g/dL (2.4-3.5); Glucose 181 mg/dL (70-105); Magnesium 2.4 mg/dL (1.6-2.6); Phosphorus 3.7 mg/dL (2.3-4.7); Protein, Total 5.7 g/dL (6.0-8.3); Sodium 132 mmol/L (136-145)
[2022-10-30] MEDS ORDERED: Furosemide 40 MG TAB PO SCH (07:30)
[2022-10-30] MEDS: Heparin 25,000 units/D5W 500 ML IV SCH (08:32)
[2022-10-30] MEDS: Potassium Chloride 20 MEQ TAB PO SCH (09:10)
[2022-10-30] MEDS: Cholecalciferol (Vitamin D3) 400 UNITS TAB PO SCH (09:11)
[2022-10-30] MEDS: Famotidine/PF 20 mg/2ml Vial SLOW IVP SCH (09:11)
[2022-10-30] MEDS: Multivit, Therapeutic 1 TAB PO SCH (09:12)
[2022-10-30] MEDS: NIFEdipine XL 30 MG TAB PO SCH (09:13)
[2022-10-30] MEDS: Clopidogrel Bisulfate 75 MG TAB PO SCH (09:13)
[2022-10-30] MEDS: Magnesium Oxide 250 MG TAB PO SCH (09:15)
[2022-10-30] MEDS: Acetylcysteine 20% 200 MG/ML 30 ML VIAL PO SCH ×2 (09:20→20:33)
[2022-10-30] MEDS: Insulin Glargine 30 UNITS/0.3 ML VIAL SC SCH (09:23)
[2022-10-30] MEDS ORDERED: INSULIN GLARGINE SC SCH (12:00)
[2022-10-30] MEDS ORDERED: PREFILLED SC SCH (12:00)
[2022-10-30] MEDS ORDERED: Acetaminophen/Codeine 30-300mg Tablet PO PRN ×2 (14:59)
[2022-10-30] MEDS ORDERED: Nitroglycerin 0.4 MG TAB (25 Tab Bottle) SL PRN (14:59)
[2022-10-30] MEDS ORDERED: Sodium Chloride 0.9% 200 ML IV PRN (14:59)
[2022-10-30] MEDS: Sodium Chloride 0.9% 1,000 ML IV SCH (23:55)
[2022-10-31] MEDS: Aztreonam 1 GM in Sodium Chloride 0.9% 100 ML IVPB SCH (03:31)
[2022-10-31 05:42] LABS: #Basophils 0.1 thou/uL (0.0-0.2); #Eosinphils 0.5 thou/uL (0.0-0.7); #Lymphocytes 2.1 thou/uL (1.20-3.40); #Monocytes 0.5 thou/uL (0.11-0.59); %Basophils 0.7 % (0.0-1.0); %Eosinophils 6.6 % (0.0-10.0); %Lymphocytes 29.7 % (21.0-51.0); %Monocytes 7.5 % (0.0-10.0); %Neutrophils 55.6 % (42.0-75.0); Hemoglobin 11.4 g/dL (12.0-16.0); Mean Corpuscular Hemoglobin 30.4 pg (27.0-31.0); Mean Corpuscular Volume 92.2 fl (78.0-98.0); Mean Platelet Volume 10.4 fL (7.4-10.4); Platelet Count 182 10x3/uL (130-400); RBC Distribution Width 11.6 % (11.5-14.5); Red Blood Cell (RBC) Count 3.76 mill/uL (4.20-5.40); White Blood Cell (WBC) Count 7.2 10x3/uL (4.8-10.8)
[2022-10-31 05:48] LABS: Anion Gap 10 mmol/L (10-20); BUN (Urea Nitrogen) 38 mg/dL (7.0-18.7); Calc. Creatinine Clearance 52 mL/min (70-130); Calcium 8.1 mg/dL (7.8-10.44); Carbon Dioxide 26 mmol/L (22-29); Chloride 104 mmol/L (98-107); Estimated GFR 38; Glucose 112 mg/dL (70-105); Phosphorus 3.2 mg/dL (2.3-4.7); Sodium 136 mmol/L (136-145)
[2022-10-31] MEDS: Clopidogrel Bisulfate 75 MG TAB PO SCH (05:55)
[2022-10-31] MEDS: NIFEdipine XL 30 MG TAB PO SCH (05:55)
[2022-10-31 05:57] LABS: Troponin I 0.425 ng/mL (< 0.028)
[2022-10-31] MEDS: Magnesium Oxide 250 MG TAB PO SCH (08:59)
[2022-10-31] MEDS: Potassium Chloride 20 MEQ TAB PO SCH (09:00)
[2022-10-31] MEDS: Famotidine/PF 20 mg/2ml Vial SLOW IVP SCH (09:00)
[2022-10-31] MEDS: Insulin Glargine 30 UNITS/0.3 ML VIAL SC SCH (09:00)
[2022-10-31] MEDS: Multivit, Therapeutic 1 TAB PO SCH (09:00)
[2022-10-31] MEDS: Cholecalciferol (Vitamin D3) 400 UNITS TAB PO SCH (09:00)
[2022-10-31] MEDS: Acetylcysteine 20% 200 MG/ML 30 ML VIAL PO SCH (09:02)
[2022-10-31] MEDS: Sodium Chloride 0.9% 1,000 ML IV SCH (09:06)
[2022-10-31] MEDS: HumaLOG 300 UNITS/3 ML VIAL SC PRN (13:19)
[2022-10-31 15:38] VITALS: TEMP 97.4
[2022-10-31 17:53] VITALS: BP 186/76
== END 2022-10-31 18:40 | disposition home or self-care (01) | DRG 280 ==
LOC: ERS 23:48 → ERHOLD 10-28 02:18 → CCU 10-28 11:45 → 2NO 10-30 12:00
PROVIDERS: ADMIT Hospitalist; ATTEND Hospitalist
PROC: 5A09357 Assistance with Respiratory Ventilation, Less than 24 Consecutive Hours, Continuous Positive Airway Pressure (ICD-10-PCS; principal; 2022-10-28)
DX: I13.0 Hypertensive heart and chronic kidney disease with heart failure and stage 1 through stage 4 chronic kidney disease, or unspecified chronic kidney disease (principal); I21.4 Non-ST elevation (NSTEMI) myocardial infarction; I50.33 Acute on chronic diastolic (congestive) heart failure; J96.00 Acute respiratory failure, unspecified whether with hypoxia or hypercapnia; E87.20 Acidosis, unspecified; I16.1 Hypertensive emergency; N17.9 Acute kidney failure, unspecified; E87.1 Hypo-osmolality and hyponatremia; Z20.822 Contact with and (suspected) exposure to COVID-19; E11.22 Type 2 diabetes mellitus with diabetic chronic kidney disease; N18.30 Chronic kidney disease, stage 3 unspecified; E11.65 Type 2 diabetes mellitus with hyperglycemia; M06.9 Rheumatoid arthritis, unspecified; R94.31 Abnormal electrocardiogram [ECG] [EKG]; Z79.84 Long term (current) use of oral hypoglycemic drugs; Z88.0 Allergy status to penicillin; Z79.899 Other long term (current) drug therapy; Z79.02 Long term (current) use of antithrombotics/antiplatelets; Z86.73 Personal history of transient ischemic attack (TIA), and cerebral infarction without residual deficits; Z90.49 Acquired absence of other specified parts of digestive tract
CPT/HCPCS: 36415; 36416; 36600; 70450; 71045; 71275; 74174; 80048; 80053; 80306; 81003; 82010; 82043; 82553; 82805; 83605; 83735; 83880; 84100; 84145; 84443; 84484; 84540; 85025; 85610; 85730; 87040; 87086; 93005; 93010; 94660; J0132; J0360; J1644; J1815; J1940; J1956; J2270; J2405; J2550; J2765; J3010; J3370-JW; J3475; J3490; J7050; Q9967; S0028

== ENCOUNTER 2024-01-15 14:15 | Inpatient (IN) | payer OTHER, SELFPAY ==
[~2024-01-15 14:15] MED LIST: Adenosine 6 mg (2 mL) VIAL ONE; Heparin 10,000 UNITS/ 10 ML VIAL ONE; Nitroglycerin 50 MG/250 ML BOT 250 ML ONE
[2024-01-15] MEDS ORDERED: Iopamidol 370 76% 100 ML VIAL ONE (14:30)
[2024-01-15] MEDS ORDERED: Metoprolol Tartrate 5 MG (5 mL) VIAL ONE ×2 (14:36→14:49)
[2024-01-15] MEDS ORDERED: fentaNYL 50 mcg/mL 1 mL Vial ONE (14:40)
[2024-01-15] MEDS ORDERED: Midazolam HCl 2 mg/2 ml Vial ONE (14:40)
[2024-01-15] MEDS ORDERED: Nitroglycerin 50 MG/250 ML BOT 250 ML ONE (14:56)
[2024-01-15] MEDS ORDERED: Atropine Sulfate 1 mg/10 ml Syringe ONE (15:11)
[2024-01-15] MEDS ORDERED: Clopidogrel Bisulfate 300 MG TAB ONE (15:44)
[2024-01-15] MEDS: Amlodipine 5 MG TAB PO SCH ×2 (16:57→20:57)
[2024-01-15] MEDS: Ondansetron PF 4 MG/2 ML Vial IVP PRN (16:57)
[2024-01-15] MEDS: hydrALAZINE 25 MG TAB PO SCH ×2 (16:58→20:56)
[2024-01-15] MEDS: Carvedilol 6.25 MG TAB PO SCH (16:58)
[2024-01-15] MEDS: fentaNYL 50 mcg/mL 1 mL Vial SLOW IVP PRN (16:59)
[2024-01-15 18:27] VITALS: BMI 28.9
[2024-01-15] MEDS: Sodium Chloride 0.9% 1,000 ML IV SCH (18:40)
[2024-01-15] MEDS ORDERED: Glucagon 1 MG/ML KIT IM PRN (20:45)
[2024-01-15] MEDS ORDERED: Dextrose 5% in Water 1,000 ML IV PRN (20:45)
[2024-01-15] MEDS ORDERED: Dextrose 50% Abboject 50 ML SYRINGE SLOW IVP PRN (20:45)
[2024-01-15 20:55] LABS: Critical Call Chem Troponin I NUR.MBF1@2055; Troponin I 171.407 ng/mL (< 0.028)
[2024-01-15] MEDS: Insulin Regular, Human 100 UNIT/ML 10 ML VIAL SC PRN (22:12)
[2024-01-15] MEDS: Nitroglycerin 50 MG/250 ML BOT 250 ML IVPB SCH (22:51)
[2024-01-16] MEDS: Insulin Regular, Human 100 UNIT/ML 10 ML VIAL SC PRN (06:20)
[2024-01-16 07:01] LABS: #Basophils 0.03 10x3/uL (0.0-0.2); %Basophils 0.4 % (0.0-1.0); %Eosinophils 0.8 % (0.0-10.0); %Lymphocytes 18.8 % (21.0-51.0); %Monocytes 8.1 % (0.0-10.0); %Neutrophils 71.6 % (42.0-75.0); Hematocrit 36.7 % (36.0-47.0); Hemoglobin 12.2 g/dL (12.0-16.0); Mean Corpuscular HGB CONC 33.2 g/dL (32.0-36.0); Mean Corpuscular Hemoglobin 28.8 pg (27.0-31.0); Mean Corpuscular Volume 86.8 fL (78.0-98.0); Mean Platelet Volume 13.2 fL (7.4-10.4); Platelet Count 169 10x3/uL (130-400); RBC Distribution Width 13.2 % (11.5-14.5); Red Blood Cell (RBC) Count 4.23 mill/uL (4.20-5.40)
[2024-01-16 07:37] LABS: ALT (SGPT) 56 U/L (8-55); AST (SGOT) 220 U/L (5-34); Albumin 2.8 g/dL (3.5-5.0); Alkaline Phosphatase 128 U/L (40-110); Anion Gap 13 mmol/L (10-20); BUN (Urea Nitrogen) 22 mg/dL (9.8-20.1); Bilirubin, Total 0.6 mg/dL (0.2-1.2); Calc. Creatinine Clearance 54 mL/min (70-130); Calcium 8.1 mg/dL (7.8-10.44); Carbon Dioxide 22 mmol/L (22-29); Cardiac Risk 3.8 (Less than 4.5); Chloride 103 mmol/L (98-107); Cholesterol 190 mg/dl (< 200 Desired); Estimated GFR 43; Globulin 2.8 g/dL (2.4-3.5); Glucose 232 mg/dL (70-105); HDL Cholesterol 50 mg/dL (>60 Neg Risk); LDL Cholesterol, Calculated 120 mg/dL; Potassium 3.9 mmol/L (3.5-5.1); Protein, Total 5.6 g/dL (6.0-8.3); Sodium 134 mmol/L (136-145); Triglycerides 100 mg/dL (Less than 150)
[2024-01-16 08:11] LABS: Critical Call Chem Troponin I ICU.VW AT 0811; Troponin I 207.739 ng/mL (< 0.028)
[2024-01-16] MEDS: Clopidogrel Bisulfate 75 MG TAB PO SCH (08:30)
[2024-01-16] MEDS: Aspirin 81 mg Enteric Coated Tablet PO SCH (08:30)
[2024-01-16 10:35] LABS: Hemoglobin A1c 8.1 % (4.0-6.0)
[2024-01-16] MEDS: Rosuvastatin 20 MG TAB PO SCH (21:02)
[2024-01-17 06:20] LABS: ALT (SGPT) 37 U/L (8-55); AST (SGOT) 90 U/L (5-34); Albumin 2.7 g/dL (3.5-5.0); Alkaline Phosphatase 114 U/L (40-110); Anion Gap 16 mmol/L (10-20); BUN (Urea Nitrogen) 21 mg/dL (9.8-20.1); Bilirubin, Total 0.7 mg/dL (0.2-1.2); Calc. Creatinine Clearance 48 mL/min (70-130); Calcium 8.4 mg/dL (7.8-10.44); Carbon Dioxide 18 mmol/L (22-29); Chloride 104 mmol/L (98-107); Estimated GFR 38; Globulin 3.2 g/dL (2.4-3.5); Glucose 141 mg/dL (70-105); Protein, Total 5.9 g/dL (6.0-8.3); Sodium 134 mmol/L (136-145)
[2024-01-17 06:29] LABS: #Basophils Less than 0.03 10x3/uL (0.0-0.2); %Basophils 0.3 % (0.0-1.0); %Eosinophils 1.6 % (0.0-10.0); %Lymphocytes 21.2 % (21.0-51.0); %Monocytes 8.1 % (0.0-10.0); %Neutrophils 68.6 % (42.0-75.0); Hematocrit 38.6 % (36.0-47.0); Hemoglobin 12.6 g/dL (12.0-16.0); Mean Corpuscular HGB CONC 32.6 g/dL (32.0-36.0); Mean Corpuscular Hemoglobin 28.5 pg (27.0-31.0); Mean Corpuscular Volume 87.3 fL (78.0-98.0); Platelet Count 159 10x3/uL (130-400); RBC Distribution Width 13.4 % (11.5-14.5); Red Blood Cell (RBC) Count 4.42 mill/uL (4.20-5.40)
[2024-01-17 07:01] LABS: Critical Call Chem Troponin I RESULT DECREASING; Troponin I Greater than 45.000 ng/mL (< 0.028)
[2024-01-17] MEDS: Furosemide 40 MG TAB PO SCH (08:04)
[2024-01-17] MEDS: Empagliflozin 10 MG TAB PO SCH (09:38)
[2024-01-17] MEDS: Sodium Chloride 0.9% 1,000 ML IV SCH (09:38)
[2024-01-17] MEDS: PARoxetine CR 12.5 MG ER.TAB PO SCH (09:38)
[2024-01-18 04:57] LABS: #Basophils 0.03 10x3/uL (0.0-0.2); %Basophils 0.5 % (0.0-1.0); %Eosinophils 3.6 % (0.0-10.0); %Lymphocytes 24.9 % (21.0-51.0); %Monocytes 8.5 % (0.0-10.0); %Neutrophils 62.3 % (42.0-75.0); Hematocrit 36.7 % (36.0-47.0); Hemoglobin 12.3 g/dL (12.0-16.0); Mean Corpuscular HGB CONC 33.5 g/dL (32.0-36.0); Mean Corpuscular Hemoglobin 29.4 pg (27.0-31.0); Mean Corpuscular Volume 87.6 fL (78.0-98.0); Mean Platelet Volume 13.3 fL (7.4-10.4); Platelet Count 163 10x3/uL (130-400); RBC Distribution Width 13.2 % (11.5-14.5); Red Blood Cell (RBC) Count 4.19 mill/uL (4.20-5.40)
[2024-01-18 05:30] LABS: ALT (SGPT) 26 U/L (8-55); AST (SGOT) 38 U/L (5-34); Albumin 2.8 g/dL (3.5-5.0); Alkaline Phosphatase 112 U/L (40-110); Anion Gap 15 mmol/L (10-20); BUN (Urea Nitrogen) 26 mg/dL (9.8-20.1); Bilirubin, Total 0.5 mg/dL (0.2-1.2); Calc. Creatinine Clearance 40 mL/min (70-130); Calcium 8.4 mg/dL (7.8-10.44); Carbon Dioxide 22 mmol/L (22-29); Chloride 101 mmol/L (98-107); Estimated GFR 30; Globulin 2.9 g/dL (2.4-3.5); Glucose 232 mg/dL (70-105); Potassium 3.9 mmol/L (3.5-5.1); Protein, Total 5.7 g/dL (6.0-8.3); Sodium 134 mmol/L (136-145)
[2024-01-18] MEDS: glipiZIDE 5 MG TAB PO SCH (09:10)
[2024-01-18] MEDS: metFORMIN 500 MG TAB PO SCH (09:10)
[2024-01-18] MEDS: Ezetimibe 10 MG TAB PO SCH (09:10)
[2024-01-18] MEDS: Insulin Glargine 30 UNITS/0.3 ML VIAL SC SCH (09:11)
[2024-01-18] MEDS: Albumin 25% 25 GM (100 mL) BOT IVPB SCH (12:40)
[2024-01-19 04:56] LABS: Anion Gap 13 mmol/L (10-20); BUN (Urea Nitrogen) 26 mg/dL (9.8-20.1); Calc. Creatinine Clearance 47 mL/min (70-130); Calcium 8.7 mg/dL (7.8-10.44); Carbon Dioxide 21 mmol/L (22-29); Chloride 103 mmol/L (98-107); Estimated GFR 36; Glucose 213 mg/dL (70-105); Potassium 3.5 mmol/L (3.5-5.1); Sodium 133 mmol/L (136-145)
[2024-01-19 06:09] LABS: #Basophils 0.03 10x3/uL (0.0-0.2); %Basophils 0.4 % (0.0-1.0); %Eosinophils 3.3 % (0.0-10.0); %Lymphocytes 16.7 % (21.0-51.0); %Monocytes 7.4 % (0.0-10.0); %Neutrophils 72.1 % (42.0-75.0); Hematocrit 34.4 % (36.0-47.0); Hemoglobin 11.4 g/dL (12.0-16.0); Mean Corpuscular HGB CONC 33.1 g/dL (32.0-36.0); Mean Corpuscular Hemoglobin 28.4 pg (27.0-31.0); Mean Corpuscular Volume 85.8 fL (78.0-98.0); Mean Platelet Volume 13.8 fL (7.4-10.4); Platelet Count 156 10x3/uL (130-400); RBC Distribution Width 13.2 % (11.5-14.5); Red Blood Cell (RBC) Count 4.01 mill/uL (4.20-5.40)
[2024-01-19] MEDS: Sodium Chloride 0.9% 1,000 ML IV SCH (09:01)
[2024-01-19] MEDS: Insulin Glargine 30 UNITS/0.3 ML VIAL SC SCH (09:06)
[2024-01-19] MEDS: Potassium Chloride 20 MEQ TAB PO SCH (09:09)
[2024-01-19] MEDS ORDERED: Albumin 25% 25 GM (100 mL) BOT IVPB SCH (12:00)
[2024-01-19] MEDS: Albumin 25% 25 GM (100 mL) BOT IVPB SCH (17:15)
[2024-01-20 04:36] LABS: #Basophils 0.03 10x3/uL (0.0-0.2); %Basophils 0.2 % (0.0-1.0); %Eosinophils 0.8 % (0.0-10.0); %Lymphocytes 7.5 % (21.0-51.0); %Monocytes 5.7 % (0.0-10.0); %Neutrophils 85.5 % (42.0-75.0); Hematocrit 35.3 % (36.0-47.0); Hemoglobin 11.4 g/dL (12.0-16.0); Mean Corpuscular HGB CONC 32.3 g/dL (32.0-36.0); Mean Corpuscular Hemoglobin 28.5 pg (27.0-31.0); Mean Corpuscular Volume 88.3 fL (78.0-98.0); Mean Platelet Volume 13.4 fL (7.4-10.4); Platelet Count 166 10x3/uL (130-400); RBC Distribution Width 13.2 % (11.5-14.5)
[2024-01-20 05:11] LABS: Anion Gap 14 mmol/L (10-20); BUN (Urea Nitrogen) 21 mg/dL (9.8-20.1); Calc. Creatinine Clearance 61 mL/min (70-130); Carbon Dioxide 21 mmol/L (22-29); Chloride 107 mmol/L (98-107); Estimated GFR 50; Glucose 80 mg/dL (70-105); Magnesium 1.8 mg/dL (1.6-2.6); Potassium 3.8 mmol/L (3.5-5.1); Sodium 138 mmol/L (136-145)
[2024-01-20] MEDS: Acetaminophen 650 MG/20.3 ML UDCUP PO PRN (06:41)
[2024-01-20] MEDS: Albumin 25% 25 GM (100 mL) BOT IVPB SCH (12:19)
[2024-01-20 12:33] LABS: Bilirubin Negative (Negative); Blood, Urine Negative (Negative); Clarity Clear (Clear); Glucose, Urine (Dipstick) Greater than 1000 mg/dL (Negative); Ketone, Urine Negative (Negative); Leukocyte Negative Leu/uL (Negative); Nitrite Negative (Negative); Protein, Urine (Dipstick) 100 mg/dL (Neg-Trace); RBC/HPF 0-3 HPF (0-3); Specific Gravity, Urine 1.006 (1.002-1.036); Squamous Epithelial 0-3 HPF (0-3); Urobilinogen Normal mg/dL (Less than 2); WBC/HPF 0-3 HPF (0-3); pH, Urine 6.5 (5.0-9.0)
[2024-01-20 12:43] LABS: Bacteria/HPF 1+ HPF (None Seen)
[2024-01-20] MEDS: hydrALAZINE 25 MG TAB PO SCH (15:58)
[2024-01-20] MEDS: Furosemide 40 MG (4 mL) VIAL SLOW IVP SCH (15:58)
[2024-01-20] MEDS ORDERED: Ipratropium Bromide 2.5 ml Neb NEB PRN (17:53)
[2024-01-20] MEDS: Ipratropium Bromide 2.5 ml Neb NEB SCH (18:35)
[2024-01-20] MEDS: Furosemide 20 MG (2 mL) VIAL SLOW IVP SCH (22:45)
[2024-01-21 05:09] LABS: #Basophils 0.04 10x3/uL (0.0-0.2); #Eosinphils Less than 0.03 10x3/uL (0.0-0.7); %Basophils 0.3 % (0.0-1.0); %Lymphocytes 7.3 % (21.0-51.0); %Monocytes 4.2 % (0.0-10.0); %Neutrophils 87.6 % (42.0-75.0); Hematocrit 33.3 % (36.0-47.0); Hemoglobin 11.1 g/dL (12.0-16.0); Mean Corpuscular HGB CONC 33.3 g/dL (32.0-36.0); Mean Corpuscular Hemoglobin 28.4 pg (27.0-31.0); Mean Corpuscular Volume 85.2 fL (78.0-98.0); Platelet Count 167 10x3/uL (130-400); RBC Distribution Width 13.3 % (11.5-14.5); Red Blood Cell (RBC) Count 3.91 mill/uL (4.20-5.40)
[2024-01-21 05:31] LABS: Anion Gap 18 mmol/L (10-20); BUN (Urea Nitrogen) 22 mg/dL (9.8-20.1); Calc. Creatinine Clearance 47 mL/min (70-130); Calcium 10.2 mg/dL (7.8-10.44); Carbon Dioxide 20 mmol/L (22-29); Chloride 103 mmol/L (98-107); Estimated GFR 36; Glucose 165 mg/dL (70-105); Potassium 3.6 mmol/L (3.5-5.1); Sodium 137 mmol/L (136-145)
[2024-01-21 05:42] LABS: HBsAg Index 0.38 S/CO (0-0.99); Hep B Surf Ag NONREACTIVE S/CO (NonReactive)
[2024-01-21] MEDS: Furosemide 20 MG TAB PO SCH (09:07)
[2024-01-22 05:29] LABS: #Basophils 0.04 10x3/uL (0.0-0.2); %Basophils 0.4 % (0.0-1.0); %Eosinophils 1.3 % (0.0-10.0); %Neutrophils 76.9 % (42.0-75.0); Mean Corpuscular HGB CONC 33.3 g/dL (32.0-36.0); Mean Corpuscular Hemoglobin 28.1 pg (27.0-31.0); Mean Corpuscular Volume 84.2 fL (78.0-98.0); Mean Platelet Volume 14.4 fL (7.4-10.4); Platelet Count 183 10x3/uL (130-400); RBC Distribution Width 12.9 % (11.5-14.5); Red Blood Cell (RBC) Count 3.92 mill/uL (4.20-5.40)
[2024-01-22 05:44] LABS: Anion Gap 15 mmol/L (10-20); BUN (Urea Nitrogen) 33 mg/dL (9.8-20.1); Calc. Creatinine Clearance 41 mL/min (70-130); Calcium 9.3 mg/dL (7.8-10.44); Carbon Dioxide 23 mmol/L (22-29); Chloride 100 mmol/L (98-107); Estimated GFR 31; Glucose 162 mg/dL (70-105); Potassium 3.4 mmol/L (3.5-5.1); Sodium 135 mmol/L (136-145)
[2024-01-22] MEDS: Azithromycin 250 MG TAB PO SCH (08:42)
[2024-01-22] MEDS: Potassium Bicarbonate/Cit Ac 20 MEQ TAB PO SCH (08:49)
[2024-01-22] MEDS ORDERED: Azithromycin 200 MG/5 ML Oral Suspension PO SCH (09:00)
[2024-01-22 10:10] VITALS: BMI 28.3
[2024-01-22 12:03] LABS: Creatinine, Urine 50.93 mg/dL (47-110)
[2024-01-22 12:51] LABS: Magnesium 1.9 mg/dL (1.6-2.6)
[2024-01-22] MEDS: Isosorbide Dinitrate 20 MG TAB PO SCH (21:25)
[2024-01-23 04:24] LABS: Anion Gap 16 mmol/L (10-20); BUN (Urea Nitrogen) 37 mg/dL (9.8-20.1); Calc. Creatinine Clearance 41 mL/min (70-130); Carbon Dioxide 22 mmol/L (22-29); Chloride 101 mmol/L (98-107); Estimated GFR 32; Glucose 160 mg/dL (70-105); Potassium 3.7 mmol/L (3.5-5.1); Sodium 135 mmol/L (136-145)
[2024-01-23] MEDS: Sodium Bicarbonate Tab 325 MG TAB PO SCH ×2 (09:51→21:46)
[2024-01-23] MEDS ORDERED: Loperamide HCl 2 MG CAP PO PRN (15:29)
[2024-01-23] MEDS: Loperamide HCl 2 MG CAP PO PRN (16:24)
[2024-01-24 04:34] LABS: Iron 34 ug/dL (50-170); Iron Binding Capacity, Total 183 mcg/dL (265-497)
[2024-01-24 07:13] LABS: Anion Gap 17 mmol/L (10-20); BUN (Urea Nitrogen) 41 mg/dL (9.8-20.1); Calc. Creatinine Clearance 39 mL/min (70-130); Carbon Dioxide 19 mmol/L (22-29); Chloride 101 mmol/L (98-107); Estimated GFR 30; Glucose 154 mg/dL (70-105); Potassium 3.5 mmol/L (3.5-5.1); Sodium 133 mmol/L (136-145)
[2024-01-24] MEDS: Sodium Bicarbonate 150 MEQ in Sterile Water 1,000 ML IV SCH (09:07)
[2024-01-24] MEDS: Potassium Bicarbonate/Cit Ac 20 MEQ TAB PO SCH (11:46)
[2024-01-24] MEDS: Ferrous Sulfate 325 MG TAB PO SCH (11:46)
[2024-01-24] MEDS: Potassium Chloride 20 MEQ TAB PO SCH (17:10)
[2024-01-25] MEDS: Ferrous Sulfate 325 MG TAB PO SCH (08:18)
[2024-01-25 11:08] LABS: Albumin 3.6 g/dL (3.5-5.0); Anion Gap 15 mmol/L (10-20); BUN (Urea Nitrogen) 40 mg/dL (9.8-20.1); BUN/Creatinine Ratio 21.28; Calc. Creatinine Clearance 42 mL/min (70-130); Calcium 8.6 mg/dL (7.8-10.44); Carbon Dioxide 26 mmol/L (22-29); Chloride 98 mmol/L (98-107); Estimated GFR 32; Glucose 274 mg/dL (70-105); Phosphorus 3.6 mg/dL (2.3-4.7); Potassium 4.1 mmol/L (3.5-5.1); Sodium 135 mmol/L (136-145)
[2024-01-25 15:42] VITALS: BP 139/71; TEMP 98.1
== END 2024-01-25 17:17 | disposition home or self-care (01) | DRG 321 ==
LOC: ERS 14:15 → CCU 16:17 → 2SW 01-16 19:33
PROVIDERS: ADMIT Internal Medicine Cardiovascular Disease; ATTEND Internal Medicine
PROC: 4A023N7 Measurement of Cardiac Sampling and Pressure, Left Heart, Percutaneous Approach (ICD-10-PCS; principal; 2024-01-16)
PROC: 027135Z Dilation of Coronary Artery, Two Arteries with Two Drug-eluting Intraluminal Devices, Percutaneous Approach (ICD-10-PCS; 2024-01-16)
PROC: B2111ZZ Fluoroscopy of Multiple Coronary Arteries using Low Osmolar Contrast (ICD-10-PCS; 2024-01-16)
DX: I21.09 ST elevation (STEMI) myocardial infarction involving other coronary artery of anterior wall (principal); I50.31 Acute diastolic (congestive) heart failure; J96.00 Acute respiratory failure, unspecified whether with hypoxia or hypercapnia; I13.0 Hypertensive heart and chronic kidney disease with heart failure and stage 1 through stage 4 chronic kidney disease, or unspecified chronic kidney disease; I50.32 Chronic diastolic (congestive) heart failure; N17.9 Acute kidney failure, unspecified; E87.20 Acidosis, unspecified; E78.5 Hyperlipidemia, unspecified; I25.10 Atherosclerotic heart disease of native coronary artery without angina pectoris; I25.5 Ischemic cardiomyopathy; E11.22 Type 2 diabetes mellitus with diabetic chronic kidney disease; N18.30 Chronic kidney disease, stage 3 unspecified; E87.70 Fluid overload, unspecified; E87.6 Hypokalemia; N18.32 Chronic kidney disease, stage 3b; Z79.82 Long term (current) use of aspirin; Z79.02 Long term (current) use of antithrombotics/antiplatelets; Z86.73 Personal history of transient ischemic attack (TIA), and cerebral infarction without residual deficits; Z88.0 Allergy status to penicillin; Z90.49 Acquired absence of other specified parts of digestive tract
CPT/HCPCS: 36415; 36416; 71045; 76705; 80048; 80053; 80061; 80069; 81001; 82040; 82570; 82728; 83036; 83540; 83550; 83735; 83880; 84156; 84300; 84484; 84540; 85025; 85347; 87340; 92941; 93005; 93010; 93306; 93458; 93798; 94640; 97139; 99152; 99153; A4217; C1769; C1874; C1887; C1894; C9606; J0153; J0461; J1644; J1815; J1940; J2250; J2405; J3010; J7050; P9047; Q9967

== ENCOUNTER 2024-02-09 23:21 | Observation (INO) | payer OTHER ==
[2024-02-10 00:06] LABS: #Basophils 0.04 10x3/uL (0.0-0.2); %Basophils 0.4 % (0.0-1.0); %Eosinophils 1.7 % (0.0-10.0); %Lymphocytes 7.6 % (21.0-51.0); Hematocrit 31.8 % (36.0-47.0); Hemoglobin 10.2 g/dL (12.0-16.0); Mean Corpuscular HGB CONC 32.1 g/dL (32.0-36.0); Mean Corpuscular Hemoglobin 28.9 pg (27.0-31.0); Mean Corpuscular Volume 90.1 fL (78.0-98.0); Mean Platelet Volume 14.3 fL (7.4-10.4); Platelet Count 158 10x3/uL (130-400); Red Blood Cell (RBC) Count 3.53 mill/uL (4.20-5.40)
[2024-02-10 00:20] LABS: ALT (SGPT) 226 U/L (8-55); AST (SGOT) 163 U/L (5-34); Albumin 4.2 g/dL (3.5-5.0); Alkaline Phosphatase 138 U/L (40-110); Anion Gap 12 mmol/L (10-20); BUN (Urea Nitrogen) 38 mg/dL (9.8-20.1); Bilirubin, Total 0.5 mg/dL (0.2-1.2); Calc. Creatinine Clearance 0 mL/min (70-130); Calcium 8.8 mg/dL (7.8-10.44); Carbon Dioxide 14 mmol/L (22-29); Chloride 111 mmol/L (98-107); Estimated GFR 30; Globulin 2.8 g/dL (2.4-3.5); Glucose 352 mg/dL (70-105); Potassium 5.4 mmol/L (3.5-5.1); Sodium 132 mmol/L (136-145)
[2024-02-10 00:24] LABS: Troponin I 0.058 ng/mL (< 0.028)
[2024-02-10 00:59] LABS: Bacteria/HPF None Seen HPF (None Seen); CAUTI Indications for Culture Dysuria,urgency,freq; RBC/HPF 0-3 HPF (0-3); Squamous Epithelial 0-3 HPF (0-3); WBC/HPF 0-3 HPF (0-3)
[2024-02-10 01:01] LABS: Urine Culture Reflex No No
[2024-02-10 01:05] LABS: Bilirubin Negative (Negative); Blood, Urine Negative (Negative); Clarity Clear (Clear); Glucose, Urine (Dipstick) Greater than 1000 mg/dL (Negative); Ketone, Urine Negative (Negative); Leukocyte Negative Leu/uL (Negative); Nitrite Negative (Negative); Protein, Urine (Dipstick) 100 mg/dL (Neg-Trace); Specific Gravity, Urine 1.011 (1.002-1.036); Urobilinogen Normal mg/dL (Less than 2); pH, Urine 5.5 (5.0-9.0)
[2024-02-10] MEDS ORDERED: Insulin Regular, Human 100 UNIT/ML 10 ML VIAL ONE (01:57)
[2024-02-10] MEDS ORDERED: Furosemide 40 MG (4 mL) VIAL ONE (01:57)
[2024-02-10] MEDS ORDERED: Nitroglycerin 0.4 MG TAB (25 Tab Bottle) SL PRN (01:58)
[2024-02-10] MEDS ORDERED: Acetaminophen 650 MG Suppository PR PRN (01:58)
[2024-02-10] MEDS ORDERED: Acetaminophen 325 MG TAB PO PRN (01:58)
[2024-02-10] MEDS ORDERED: Ondansetron PF 4 MG/2 ML Vial IVP PRN (02:00)
[2024-02-10] MEDS ORDERED: Ondansetron ODT 4 MG TAB SL PRN (02:00)
[2024-02-10] MEDS: Lidocaine 2% Viscous Solution 10 ML, Aluminum & Magnesium Hydroxide 30 ML SSW SCH (03:49)
[2024-02-10 04:30] LABS: Alcohol Less than 10.0 mg/dL (Less than 10)
[2024-02-10 04:32] LABS: Anion Gap 12 mmol/L (10-20); BUN (Urea Nitrogen) 35 mg/dL (9.8-20.1); Calc. Creatinine Clearance 0 mL/min (70-130); Calcium 8.9 mg/dL (7.8-10.44); Carbon Dioxide 16 mmol/L (22-29); Chloride 110 mmol/L (98-107); Estimated GFR 35; Glucose 259 mg/dL (70-105); Magnesium 2.3 mg/dL (1.6-2.6); Potassium 5.1 mmol/L (3.5-5.1); Sodium 133 mmol/L (136-145)
[2024-02-10 04:34] LABS: Acetaminophen Less than 10 mcg/mL (10.0-30.0); Alcohol Less than 10.0 mg/dL (Less than 10); Salicylate Less than 8.0 mg/dL (15.0-30.0)
[2024-02-10 04:38] LABS: Troponin I 0.061 ng/mL (< 0.028)
[2024-02-10 04:56] LABS: HBsAg Index 0.21 S/CO (0-0.99); Hep A IgM AB NONREACTIVE (NonReactive); Hep A IgM S/CO 0.36 S/CO (0-0.79); Hep B Surf Ag NONREACTIVE S/CO (NonReactive); Hep C IgG Ab NONREACTIVE S/CO (NonReactive); Hep C Index 0.12 S/CO (0-0.79); Hepatitis B Core IgM Abs NONREACTIVE S/CO (NonReactive)
[2024-02-10 06:23] LABS: Troponin I 0.068 ng/mL (< 0.028)
[2024-02-10] MEDS ORDERED: Pantoprazole DR 40 MG TAB ONE (08:10)
[2024-02-10] MEDS ORDERED: hydrALAZINE 25 MG TAB ONE (08:10)
[2024-02-10] MEDS ORDERED: Amlodipine 5 MG TAB ONE (08:10)
[2024-02-10] MEDS ORDERED: Clopidogrel Bisulfate 75 MG TAB ONE (08:10)
[2024-02-10] MEDS ORDERED: Carvedilol 6.25 MG TAB ONE (08:11)
[2024-02-10] MEDS ORDERED: Famotidine 20 MG TAB ONE (08:11)
[2024-02-10] MEDS ORDERED: Aspirin Chewable 81 MG TAB ONE (08:11)
[2024-02-10] MEDS: Aspirin Chewable 81 MG TAB PO SCH (08:14)
[2024-02-10] MEDS: Pantoprazole DR 40 MG TAB PO SCH (08:14)
[2024-02-10] MEDS: Clopidogrel Bisulfate 75 MG TAB PO SCH (08:14)
[2024-02-10] MEDS: Famotidine 20 MG TAB PO SCH (08:14)
[2024-02-10] MEDS: Carvedilol 6.25 MG TAB PO SCH (08:14)
[2024-02-10] MEDS: hydrALAZINE 25 MG TAB PO SCH (08:14)
[2024-02-10] MEDS: Amlodipine 5 MG TAB PO SCH (08:14)
[2024-02-10] MEDS: Ferrous Sulfate 325 MG TAB PO SCH (09:34)
[2024-02-10] MEDS: Ezetimibe 10 MG TAB PO SCH (09:34)
[2024-02-10] MEDS: Isosorbide Dinitrate 20 MG TAB PO SCH ×2 (09:34→20:39)
[2024-02-10] MEDS: Cyanocobalamin (Vitamin B-12) 1,000 MCG TAB PO SCH (09:35)
[2024-02-10 20:03] VITALS: BMI 27.8
[2024-02-10] MEDS: Rosuvastatin 20 MG TAB PO SCH (20:39)
[2024-02-11 08:36] LABS: ALT (SGPT) 137 U/L (8-55); AST (SGOT) 72 U/L (5-34); Albumin 3.7 g/dL (3.5-5.0); Alkaline Phosphatase 119 U/L (40-110); Anion Gap 9 mmol/L (10-20); BUN (Urea Nitrogen) 32 mg/dL (9.8-20.1); Bilirubin, Total 0.5 mg/dL (0.2-1.2); Calc. Creatinine Clearance 44 mL/min (70-130); Calcium 8.9 mg/dL (7.8-10.44); Carbon Dioxide 22 mmol/L (22-29); Chloride 108 mmol/L (98-107); Estimated GFR 34; Globulin 2.6 g/dL (2.4-3.5); Glucose 214 mg/dL (70-105); Potassium 4.2 mmol/L (3.5-5.1); Protein, Total 6.3 g/dL (6.0-8.3); Sodium 135 mmol/L (136-145)
[2024-02-11 08:49] VITALS: BP 131/61; TEMP 97.6
[2024-02-11 08:54] LABS: #Basophils 0.03 10x3/uL (0.0-0.2); %Basophils 0.8 % (0.0-1.0); %Eosinophils 5.7 % (0.0-10.0); %Lymphocytes 34.2 % (21.0-51.0); %Monocytes 8.7 % (0.0-10.0); %Neutrophils 50.3 % (42.0-75.0); Hematocrit 31.9 % (36.0-47.0); Hemoglobin 10.5 g/dL (12.0-16.0); Mean Corpuscular HGB CONC 32.9 g/dL (32.0-36.0); Mean Corpuscular Hemoglobin 29.3 pg (27.0-31.0); Mean Corpuscular Volume 89.1 fL (78.0-98.0); Mean Platelet Volume 14.1 fL (7.4-10.4); Platelet Count 156 10x3/uL (130-400); RBC Distribution Width 13.2 % (11.5-14.5); Red Blood Cell (RBC) Count 3.58 mill/uL (4.20-5.40)
== END 2024-02-11 11:52 | disposition home or self-care (01) ==
LOC: ERS 23:21 → ERHOLD 02-10 01:49 → 2SW 02-10 15:27
PROVIDERS: ADMIT Internal Medicine; ATTEND Family Medicine
DX: I25.118 Atherosclerotic heart disease of native coronary artery with other forms of angina pectoris (principal); I21.3 ST elevation (STEMI) myocardial infarction of unspecified site; I13.0 Hypertensive heart and chronic kidney disease with heart failure and stage 1 through stage 4 chronic kidney disease, or unspecified chronic kidney disease; N18.32 Chronic kidney disease, stage 3b; I50.30 Unspecified diastolic (congestive) heart failure; E11.65 Type 2 diabetes mellitus with hyperglycemia; E11.22 Type 2 diabetes mellitus with diabetic chronic kidney disease; E78.5 Hyperlipidemia, unspecified; E87.5 Hyperkalemia; R74.01 Elevation of levels of liver transaminase levels; F31.9 Bipolar disorder, unspecified; Z88.0 Allergy status to penicillin; Z88.8 Allergy status to other drugs, medicaments and biological substances; Z79.82 Long term (current) use of aspirin; Z79.02 Long term (current) use of antithrombotics/antiplatelets; Z79.899 Other long term (current) drug therapy; Z90.49 Acquired absence of other specified parts of digestive tract; Z95.5 Presence of coronary angioplasty implant and graft
CPT/HCPCS: 36415; 36416; 71045; 80048; 80053; 80074; 80307; 81001; 83605; 83690; 83735; 83880; 84484; 85025; 93005; 94760; 96374; G0378; J1815; J1940

== ENCOUNTER 2024-03-17 19:52 | Inpatient (IN) | payer OTHER ==
[2024-03-17 20:19] LABS: Bacteria/HPF None Seen HPF (None Seen); Bilirubin Negative (Negative); Blood, Urine Negative (Negative); CAUTI Indications for Culture Pelvic or flank pain; Clarity Clear (Clear); Glucose, Urine (Dipstick) Greater than 1000 mg/dL (Negative); Ketone, Urine Negative (Negative); Leukocyte Negative Leu/uL (Negative); Nitrite Negative (Negative); Protein, Urine (Dipstick) 70 mg/dL (Neg-Trace); RBC/HPF 0-3 HPF (0-3); Specific Gravity, Urine 1.009 (1.002-1.036); Squamous Epithelial 0-3 HPF (0-3); Urobilinogen Normal mg/dL (Less than 2); WBC/HPF 0-3 HPF (0-3)
[2024-03-17 20:20] LABS: Urine Culture Reflex No No
[2024-03-17] MEDS ORDERED: hydrALAZINE 20 MG/ML VIAL ONE (20:21)
[2024-03-17] MEDS ORDERED: Nitroglycerin 2% Ointment 1 INCH/1 GM Packet ONE (20:21)
[2024-03-17 21:07] LABS: #Basophils 0.03 10x3/uL (0.0-0.2); #Eosinphils Less than 0.03 10x3/uL (0.0-0.7); %Basophils 0.3 % (0.0-1.0); %Eosinophils 0.1 % (0.0-10.0); %Lymphocytes 6.7 % (21.0-51.0); %Monocytes 3.5 % (0.0-10.0); %Neutrophils 89.1 % (42.0-75.0); Hematocrit 36.3 % (36.0-47.0); Hemoglobin 12.1 g/dL (12.0-16.0); Mean Corpuscular HGB CONC 33.3 g/dL (32.0-36.0); Mean Corpuscular Hemoglobin 29.2 pg (27.0-31.0); Mean Corpuscular Volume 87.7 fL (78.0-98.0); Mean Platelet Volume 14.1 fL (7.4-10.4); Platelet Count 170 10x3/uL (130-400); RBC Distribution Width 12.3 % (11.5-14.5); Red Blood Cell (RBC) Count 4.14 mill/uL (4.20-5.40)
[2024-03-17 21:25] LABS: ALT (SGPT) 44 U/L (8-55); AST (SGOT) 35 U/L (5-34); Albumin 4.2 g/dL (3.5-5.0); Alkaline Phosphatase 102 U/L (40-110); Anion Gap 19 mmol/L (10-20); BUN (Urea Nitrogen) 37 mg/dL (9.8-20.1); Bilirubin, Total 0.4 mg/dL (0.2-1.2); Calc. Creatinine Clearance 0 mL/min (70-130); Calcium 9.4 mg/dL (7.8-10.44); Carbon Dioxide 19 mmol/L (22-29); Chloride 101 mmol/L (98-107); Estimated GFR 19; Globulin 3.4 g/dL (2.4-3.5); Glucose 365 mg/dL (70-105); Potassium 4.1 mmol/L (3.5-5.1); Protein, Total 7.6 g/dL (6.0-8.3); Sodium 135 mmol/L (136-145)
[2024-03-17 21:38] LABS: Troponin I 0.427 ng/mL (< 0.028)
[2024-03-17] MEDS ORDERED: Glucagon 1 MG/ML KIT IM PRN (22:12)
[2024-03-17] MEDS ORDERED: Dextrose 50% Abboject 50 ML SYRINGE SLOW IVP PRN (22:12)
[2024-03-17] MEDS ORDERED: Dextrose 5% in Water 1,000 ML IV PRN (22:12)
[2024-03-17 23:17] VITALS: BMI 26.4
[2024-03-17] MEDS: Pantoprazole DR 40 MG TAB PO SCH (23:55)
[2024-03-17] MEDS: Insulin Lispro 100 UNIT/ML 10 ML VIAL SC PRN (23:55)
[2024-03-17] MEDS: Carvedilol 25 MG TAB PO SCH (23:55)
[2024-03-18 02:30] LABS: Troponin I 4.299 ng/mL (< 0.028)
[2024-03-18] MEDS ORDERED: Nitroglycerin 0.4 MG TAB (25 Tab Bottle) SL PRN (03:05)
[2024-03-18 04:22] LABS: Hematocrit 32.5 % (36.0-47.0); Hemoglobin 10.6 g/dL (12.0-16.0); Platelet Count 155 10x3/uL (130-400)
[2024-03-18 04:40] LABS: #Basophils 0.04 10x3/uL (0.0-0.2); %Basophils 0.8 % (0.0-1.0); %Eosinophils 1.5 % (0.0-10.0); %Lymphocytes 32.4 % (21.0-51.0); %Monocytes 10.2 % (0.0-10.0); %Neutrophils 54.9 % (42.0-75.0); Hematocrit 32.7 % (36.0-47.0); Hemoglobin 10.8 g/dL (12.0-16.0); Mean Corpuscular Hemoglobin 28.8 pg (27.0-31.0); Mean Corpuscular Volume 87.2 fL (78.0-98.0); Mean Platelet Volume 13.9 fL (7.4-10.4); Platelet Count 150 10x3/uL (130-400); RBC Distribution Width 12.4 % (11.5-14.5); Red Blood Cell (RBC) Count 3.75 mill/uL (4.20-5.40)
[2024-03-18 04:46] LABS: Anion Gap 15 mmol/L (10-20); BUN (Urea Nitrogen) 34 mg/dL (9.8-20.1); Calc. Creatinine Clearance 27 mL/min (70-130); Calcium 9.1 mg/dL (7.8-10.44); Carbon Dioxide 21 mmol/L (22-29); Chloride 104 mmol/L (98-107); Estimated GFR 20; Glucose 121 mg/dL (70-105); Potassium 3.9 mmol/L (3.5-5.1); Sodium 136 mmol/L (136-145)
[2024-03-18] MEDS: Heparin 10,000 UNITS/ 10 ML VIAL SLOW IVP SCH (04:49)
[2024-03-18] MEDS: Heparin 25,000 units/D5W 500 ML IVPB SCH (04:50)
[2024-03-18] MEDS ORDERED: Heparin 5,000 UNITS/ML VIAL SC SCH (09:00)
[2024-03-18] MEDS: Clopidogrel Bisulfate 75 MG TAB PO SCH (09:47)
[2024-03-18] MEDS: Aspirin Chewable 81 MG TAB PO SCH (09:47)
[2024-03-18] MEDS: Torsemide 20 MG TAB PO SCH (09:47)
[2024-03-18] MEDS: Isosorbide Dinitrate 20 MG TAB PO SCH (09:47)
[2024-03-18] MEDS: Pantoprazole DR 40 MG TAB PO SCH (09:48)
[2024-03-18] MEDS: Carvedilol 25 MG TAB PO SCH (09:48)
[2024-03-18 10:51] LABS: Troponin I 5.887 ng/mL (< 0.028)
[2024-03-18] MEDS: PARoxetine CR 12.5 MG ER.TAB PO SCH (11:32)
[2024-03-18 11:40] VITALS: BMI 26.4
[2024-03-18] MEDS: Rosuvastatin 10 MG TAB PO SCH (20:07)
[2024-03-19 06:27] LABS: ALT (SGPT) 30 U/L (8-55); AST (SGOT) 33 U/L (5-34); Albumin 3.2 g/dL (3.5-5.0); Alkaline Phosphatase 78 U/L (40-110); Anion Gap 15 mmol/L (10-20); BUN (Urea Nitrogen) 35 mg/dL (9.8-20.1); Bilirubin, Total 0.5 mg/dL (0.2-1.2); Calc. Creatinine Clearance 26 mL/min (70-130); Calcium 8.5 mg/dL (7.8-10.44); Carbon Dioxide 23 mmol/L (22-29); Cardiac Risk 3.4 (Less than 4.5); Chloride 102 mmol/L (98-107); Cholesterol 148 mg/dl (< 200 Desired); Estimated GFR 19; Globulin 2.6 g/dL (2.4-3.5); Glucose 134 mg/dL (70-105); HDL Cholesterol 43 mg/dL (>60 Neg Risk); LDL Cholesterol, Calculated 86 mg/dL; Potassium 3.8 mmol/L (3.5-5.1); Protein, Total 5.8 g/dL (6.0-8.3); Sodium 136 mmol/L (136-145); Triglycerides 96 mg/dL (Less than 150)
[2024-03-19 06:34] LABS: #Basophils 0.03 10x3/uL (0.0-0.2); %Basophils 0.9 % (0.0-1.0); %Lymphocytes 39.1 % (21.0-51.0); %Monocytes 10.2 % (0.0-10.0); %Neutrophils 42.5 % (42.0-75.0); Hematocrit 33.1 % (36.0-47.0); Hemoglobin 10.7 g/dL (12.0-16.0); Mean Corpuscular HGB CONC 32.3 g/dL (32.0-36.0); Mean Corpuscular Hemoglobin 28.2 pg (27.0-31.0); Mean Corpuscular Volume 87.3 fL (78.0-98.0); Mean Platelet Volume 13.7 fL (7.4-10.4); Platelet Count 145 10x3/uL (130-400); RBC Distribution Width 12.2 % (11.5-14.5); Red Blood Cell (RBC) Count 3.79 mill/uL (4.20-5.40)
[2024-03-19] MEDS: Sodium Chloride 0.9% 1,000 ML IV SCH (09:40)
[2024-03-19] MEDS: Insulin Lispro 100 UNIT/ML 10 ML VIAL SC PRN (10:45)
[2024-03-19 19:42] LABS: PTT 129.4 sec (22.9-36.1)
[2024-03-20 04:12] LABS: Hematocrit 31.5 % (36.0-47.0); Hemoglobin 10.2 g/dL (12.0-16.0); Platelet Count 134 10x3/uL (130-400)
[2024-03-20 04:24] LABS: #Basophils 0.03 10x3/uL (0.0-0.2); %Basophils 0.7 % (0.0-1.0); %Eosinophils 6.8 % (0.0-10.0); %Lymphocytes 34.9 % (21.0-51.0); %Monocytes 8.4 % (0.0-10.0); %Neutrophils 49.2 % (42.0-75.0); Hematocrit 30.5 % (36.0-47.0); Hemoglobin 10.1 g/dL (12.0-16.0); Mean Corpuscular HGB CONC 33.1 g/dL (32.0-36.0); Mean Corpuscular Hemoglobin 28.9 pg (27.0-31.0); Mean Corpuscular Volume 87.4 fL (78.0-98.0); Mean Platelet Volume 13.4 fL (7.4-10.4); Platelet Count 139 10x3/uL (130-400); RBC Distribution Width 12.2 % (11.5-14.5); Red Blood Cell (RBC) Count 3.49 mill/uL (4.20-5.40)
[2024-03-20 04:43] LABS: Anion Gap 14 mmol/L (10-20); BUN (Urea Nitrogen) 38 mg/dL (9.8-20.1); Calc. Creatinine Clearance 31 mL/min (70-130); Calcium 8.2 mg/dL (7.8-10.44); Carbon Dioxide 21 mmol/L (22-29); Chloride 108 mmol/L (98-107); Estimated GFR 24; Glucose 136 mg/dL (70-105); Magnesium 2.1 mg/dL (1.6-2.6); Potassium 3.5 mmol/L (3.5-5.1); Sodium 139 mmol/L (136-145)
[2024-03-21 09:48] LABS: Anion Gap 13 mmol/L (10-20); BUN (Urea Nitrogen) 30 mg/dL (9.8-20.1); Calc. Creatinine Clearance 33 mL/min (70-130); Calcium 8.4 mg/dL (7.8-10.44); Carbon Dioxide 22 mmol/L (22-29); Chloride 109 mmol/L (98-107); Estimated GFR 26; Glucose 122 mg/dL (70-105); Potassium 3.7 mmol/L (3.5-5.1); Sodium 140 mmol/L (136-145)
[2024-03-21] MEDS: Sodium Chloride 0.9% 1,000 ML IV SCH (16:22)
[2024-03-21] MEDS: Albumin 25% 25 GM (100 mL) BOT IVPB SCH (17:14)
[2024-03-22 04:26] LABS: Anion Gap 13 mmol/L (10-20); BUN (Urea Nitrogen) 27 mg/dL (9.8-20.1); Calc. Creatinine Clearance 35 mL/min (70-130); Calcium 8.7 mg/dL (7.8-10.44); Carbon Dioxide 18 mmol/L (22-29); Chloride 112 mmol/L (98-107); Estimated GFR 28; Glucose 103 mg/dL (70-105); Potassium 3.9 mmol/L (3.5-5.1); Sodium 139 mmol/L (136-145)
[2024-03-22 05:01] LABS: Hematocrit 27.8 % (36.0-47.0); Platelet Count 125 10x3/uL (130-400)
[2024-03-22 10:02] VITALS: TEMP 98.1
[2024-03-22 12:49] VITALS: BP 147/82
== END 2024-03-22 16:26 | disposition home or self-care (01) | DRG 281 ==
LOC: ERS 19:52 → OBSVTOIN 23:03 → 2SW 23:03
PROVIDERS: ADMIT Internal Medicine; ATTEND Internal Medicine
DX: I21.4 Non-ST elevation (NSTEMI) myocardial infarction (principal); I13.0 Hypertensive heart and chronic kidney disease with heart failure and stage 1 through stage 4 chronic kidney disease, or unspecified chronic kidney disease; N17.9 Acute kidney failure, unspecified; I50.32 Chronic diastolic (congestive) heart failure; I25.10 Atherosclerotic heart disease of native coronary artery without angina pectoris; E11.22 Type 2 diabetes mellitus with diabetic chronic kidney disease; K21.9 Gastro-esophageal reflux disease without esophagitis; F41.9 Anxiety disorder, unspecified; N18.30 Chronic kidney disease, stage 3 unspecified; F32.A Depression, unspecified; Z88.8 Allergy status to other drugs, medicaments and biological substances; Z79.82 Long term (current) use of aspirin; Z79.899 Other long term (current) drug therapy; Z88.0 Allergy status to penicillin; Z86.73 Personal history of transient ischemic attack (TIA), and cerebral infarction without residual deficits; I25.2 Old myocardial infarction; Z98.84 Bariatric surgery status; Z95.5 Presence of coronary angioplasty implant and graft; Z79.02 Long term (current) use of antithrombotics/antiplatelets; Z89.421 Acquired absence of other right toe(s)
CPT/HCPCS: 36415; 36416; 71045; 80048; 80053; 80061; 81001; 83036; 83735; 83880; 84484; 85014; 85018; 85025; 85049; 85730; 93005; 93306; 93798; 94760; J0360; J1644; J1815; J7030; P9047

== ENCOUNTER 2024-06-04 21:18 | Inpatient (IN) | payer BC ==
[2024-06-04] MEDS ORDERED: Ondansetron ODT 4 MG TAB PO PRN (23:53)
[2024-06-04] MEDS ORDERED: Acetaminophen 650 MG Suppository PR PRN (23:53)
[2024-06-04] MEDS ORDERED: Ondansetron PF 4 MG/2 ML Vial IVP PRN (23:53)
[2024-06-04] MEDS ORDERED: Nitroglycerin 0.4 MG TAB (25 Tab Bottle) SL PRN (23:54)
[2024-06-04 23:56] VITALS: BMI 25.7
[2024-06-05] MEDS: Acetaminophen 325 MG TAB PO SCH (00:17)
[2024-06-05 00:49] LABS: Hematocrit 30.7 % (36.0-47.0); Hemoglobin 9.9 g/dL (12.0-16.0); Mean Corpuscular HGB CONC 32.2 g/dL (32.0-36.0); Mean Corpuscular Hemoglobin 27.6 pg (27.0-31.0); Mean Corpuscular Volume 85.5 fL (78.0-98.0); Mean Platelet Volume 12.5 fL (7.4-10.4); Platelet Count 211 10x3/uL (130-400); RBC Distribution Width 12.6 % (11.5-14.5); Red Blood Cell (RBC) Count 3.59 mill/uL (4.20-5.40)
[2024-06-05 00:59] LABS: ALT (SGPT) 16 U/L (8-55); AST (SGOT) 19 U/L (5-34); Albumin 2.9 g/dL (3.5-5.0); Alkaline Phosphatase 114 U/L (40-110); Anion Gap 10 mmol/L (10-20); BUN (Urea Nitrogen) 23 mg/dL (9.8-20.1); Bilirubin, Total 0.3 mg/dL (0.2-1.2); Calc. Creatinine Clearance 41 mL/min (70-130); Calcium 8.2 mg/dL (7.8-10.44); Carbon Dioxide 19 mmol/L (22-29); Chloride 111 mmol/L (98-107); Estimated GFR 35; Globulin 2.8 g/dL (2.4-3.5); Glucose 140 mg/dL (70-105); Potassium 3.9 mmol/L (3.5-5.1); Protein, Total 5.7 g/dL (6.0-8.3); Sodium 136 mmol/L (136-145)
[2024-06-05 01:09] LABS: Eosinophils 4 % (0-10); Lymphocytes 32 % (21-51); Microcytosis SLIGHT = 6-15 cells HPF (0-5); Monocytes 4 % (0-10); Neutrophil 58 % (42-75); Ovalocytes SLIGHT = 2-5 cells HPF (0-1); Platelet Adequacy Comment Platelets Normal
[2024-06-05] MEDS ORDERED: Insulin Lispro 100 UNIT/ML 10 ML VIAL SC PRN (01:13)
[2024-06-05] MEDS ORDERED: Dextrose 5% in Water 1,000 ML IV PRN (01:13)
[2024-06-05] MEDS ORDERED: Glucagon 1 MG/ML KIT IM PRN (01:13)
[2024-06-05] MEDS ORDERED: Dextrose 50% Abboject 50 ML SYRINGE SLOW IVP PRN (01:13)
[2024-06-05 01:25] LABS: Troponin I 1.286 ng/mL (< 0.028)
[2024-06-05 04:42] LABS: Critical Call Chem Troponin I DECREASING; Troponin I 1.244 ng/mL (< 0.028)
[2024-06-05] MEDS: Furosemide 40 MG (4 mL) VIAL SLOW IVP SCH (06:00)
[2024-06-05] MEDS: hydrALAZINE 25 MG TAB PO SCH (08:56)
[2024-06-05] MEDS: Aspirin Chewable 81 MG TAB PO SCH (08:58)
[2024-06-05] MEDS: Sodium Bicarbonate Tab 325 MG TAB PO SCH ×2 (08:58→14:36)
[2024-06-05] MEDS: Clopidogrel Bisulfate 75 MG TAB PO SCH (08:58)
[2024-06-05] MEDS: Dapagliflozin Propanediol 10 MG TAB PO SCH (08:59)
[2024-06-05] MEDS: Ezetimibe 10 MG TAB PO SCH (08:59)
[2024-06-05] MEDS: Carvedilol 6.25 MG TAB PO SCH ×2 (08:59→17:11)
[2024-06-05] MEDS: Pantoprazole DR 40 MG TAB PO SCH (08:59)
[2024-06-05] MEDS: Cyanocobalamin (Vitamin B-12) 1,000 MCG TAB PO SCH (09:00)
[2024-06-05] MEDS ORDERED: Torsemide 20 MG TAB PO SCH (09:00)
[2024-06-05] MEDS: Famotidine 20 MG TAB PO SCH (09:00)
[2024-06-05] MEDS ORDERED: metFORMIN XR 500 MG ER.TAB PO SCH (09:00)
[2024-06-05] MEDS: Isosorbide Dinitrate 20 MG TAB PO SCH ×2 (09:00→14:35)
[2024-06-05] MEDS: Famotidine/PF 20 mg/2ml Vial SLOW IVP SCH (09:01)
[2024-06-05] MEDS: Amlodipine 5 MG TAB PO SCH (09:01)
[2024-06-05] MEDS: PARoxetine CR 12.5 MG ER.TAB PO SCH (09:01)
[2024-06-05] MEDS: Insulin Lispro 100 UNIT/ML 10 ML VIAL SC PRN (17:17)
[2024-06-05] MEDS: Rosuvastatin 20 MG TAB PO SCH (21:32)
[2024-06-06 05:15] LABS: #Basophils 0.07 10x3/uL (0.0-0.2); %Basophils 1.3 % (0.0-1.0); %Eosinophils 4.3 % (0.0-10.0); %Lymphocytes 31.4 % (21.0-51.0); %Monocytes 8.3 % (0.0-10.0); %Neutrophils 54.7 % (42.0-75.0); Hematocrit 30.5 % (36.0-47.0); Hemoglobin 9.8 g/dL (12.0-16.0); Mean Corpuscular HGB CONC 32.1 g/dL (32.0-36.0); Mean Corpuscular Hemoglobin 27.4 pg (27.0-31.0); Mean Corpuscular Volume 85.2 fL (78.0-98.0); Mean Platelet Volume 13.2 fL (7.4-10.4); Platelet Count 203 10x3/uL (130-400); RBC Distribution Width 12.6 % (11.5-14.5); Red Blood Cell (RBC) Count 3.58 mill/uL (4.20-5.40)
[2024-06-06 05:37] LABS: Anion Gap 12 mmol/L (10-20); BUN (Urea Nitrogen) 32 mg/dL (9.8-20.1); Calc. Creatinine Clearance 32 mL/min (70-130); Calcium 8.4 mg/dL (7.8-10.44); Carbon Dioxide 22 mmol/L (22-29); Chloride 104 mmol/L (98-107); Estimated GFR 26; Glucose 151 mg/dL (70-105); Magnesium 2.1 mg/dL (1.6-2.6); Sodium 134 mmol/L (136-145)
[2024-06-06] MEDS: Albumin 25% 25 GM (100 mL) BOT IVPB SCH (09:09)
[2024-06-06] MEDS: Acetylcysteine 20% 200 MG/ML 30 ML VIAL PO SCH (12:33)
[2024-06-06] MEDS ORDERED: Acetaminophen 325 MG TAB PO PRN (12:40)
[2024-06-06] MEDS: Sodium Chloride 0.9% 1,000 ML IV SCH ×2 (17:54→17:55)
[2024-06-06] MEDS ORDERED: Communication Order-Pharmacy FS SCH ×2 (18:00)
[2024-06-07 04:53] LABS: Hemoglobin A1c 7.6 % (4.0-6.0)
[2024-06-07 04:56] LABS: #Basophils 0.05 10x3/uL (0.0-0.2); %Basophils 0.9 % (0.0-1.0); %Eosinophils 6.3 % (0.0-10.0); %Lymphocytes 25.9 % (21.0-51.0); %Monocytes 10.3 % (0.0-10.0); %Neutrophils 56.2 % (42.0-75.0); Hematocrit 28.8 % (36.0-47.0); Hemoglobin 9.3 g/dL (12.0-16.0); Mean Corpuscular HGB CONC 32.3 g/dL (32.0-36.0); Mean Corpuscular Hemoglobin 27.5 pg (27.0-31.0); Mean Corpuscular Volume 85.2 fL (78.0-98.0); Mean Platelet Volume 13.3 fL (7.4-10.4); Platelet Count 180 10x3/uL (130-400); RBC Distribution Width 12.5 % (11.5-14.5); Red Blood Cell (RBC) Count 3.38 mill/uL (4.20-5.40)
[2024-06-07 05:00] LABS: ALT (SGPT) 12 U/L (8-55); AST (SGOT) 13 U/L (5-34); Albumin 3.4 g/dL (3.5-5.0); Alkaline Phosphatase 93 U/L (40-110); Anion Gap 12 mmol/L (10-20); BUN (Urea Nitrogen) 32 mg/dL (9.8-20.1); Bilirubin, Total 0.6 mg/dL (0.2-1.2); Calc. Creatinine Clearance 31 mL/min (70-130); Calcium 8.3 mg/dL (7.8-10.44); Carbon Dioxide 23 mmol/L (22-29); Chloride 105 mmol/L (98-107); Cholesterol 129 mg/dl (< 200 Desired); Estimated GFR 26; Globulin 2.2 g/dL (2.4-3.5); Glucose 159 mg/dL (70-105); HDL Cholesterol 43 mg/dL (>60 Neg Risk); LDL Cholesterol, Calculated 75 mg/dL; Potassium 3.9 mmol/L (3.5-5.1); Protein, Total 5.6 g/dL (6.0-8.3); Sodium 136 mmol/L (136-145); Triglycerides 55 mg/dL (Less than 150)
[2024-06-07] MEDS: Rosuvastatin 10 MG TAB PO SCH (20:57)
[2024-06-08 05:18] LABS: #Basophils 0.04 10x3/uL (0.0-0.2); %Basophils 0.6 % (0.0-1.0); %Eosinophils 4.3 % (0.0-10.0); %Lymphocytes 16.4 % (21.0-51.0); %Monocytes 10.1 % (0.0-10.0); %Neutrophils 68.1 % (42.0-75.0); Hematocrit 29.9 % (36.0-47.0); Hemoglobin 9.5 g/dL (12.0-16.0); Mean Corpuscular HGB CONC 31.8 g/dL (32.0-36.0); Mean Corpuscular Hemoglobin 27.1 pg (27.0-31.0); Mean Corpuscular Volume 85.4 fL (78.0-98.0); Platelet Count 183 10x3/uL (130-400); RBC Distribution Width 12.7 % (11.5-14.5)
[2024-06-08 05:41] LABS: Anion Gap 12 mmol/L (10-20); BUN (Urea Nitrogen) 26 mg/dL (9.8-20.1); Calc. Creatinine Clearance 35 mL/min (70-130); Calcium 8.4 mg/dL (7.8-10.44); Carbon Dioxide 24 mmol/L (22-29); Chloride 108 mmol/L (98-107); Estimated GFR 29; Glucose 174 mg/dL (70-105); Potassium 4.2 mmol/L (3.5-5.1); Sodium 140 mmol/L (136-145)
[2024-06-08] MEDS: Famotidine/PF 20 mg/2ml Vial SLOW IVP SCH (10:18)
[2024-06-08] MEDS: Carvedilol 25 MG TAB PO SCH (10:22)
[2024-06-08] MEDS: Famotidine 20 MG TAB PO SCH (10:22)
[2024-06-08 12:15] VITALS: TEMP 98.1
[2024-06-08 13:10] VITALS: BP 196/84
== END 2024-06-08 15:53 | disposition home or self-care (01) | DRG 280 ==
LOC: 2NO 23:14
PROVIDERS: ADMIT Student in an Organized Health Care Education/Training Program; ATTEND Family Medicine
DX: I13.0 Hypertensive heart and chronic kidney disease with heart failure and stage 1 through stage 4 chronic kidney disease, or unspecified chronic kidney disease (principal); I50.33 Acute on chronic diastolic (congestive) heart failure; I21.A1 Myocardial infarction type 2; N17.9 Acute kidney failure, unspecified; E87.21 Acute metabolic acidosis; N18.30 Chronic kidney disease, stage 3 unspecified; I25.10 Atherosclerotic heart disease of native coronary artery without angina pectoris; E11.22 Type 2 diabetes mellitus with diabetic chronic kidney disease; D64.9 Anemia, unspecified; F31.9 Bipolar disorder, unspecified; I95.9 Hypotension, unspecified; K21.9 Gastro-esophageal reflux disease without esophagitis; E78.5 Hyperlipidemia, unspecified; Z95.5 Presence of coronary angioplasty implant and graft; Z88.0 Allergy status to penicillin; Z88.8 Allergy status to other drugs, medicaments and biological substances; Z90.49 Acquired absence of other specified parts of digestive tract; Z98.891 History of uterine scar from previous surgery; Z98.84 Bariatric surgery status
CPT/HCPCS: 36415; 36416; 80048; 80053; 80061; 83036; 83735; 84484; 85025; 93798; J0132; J1815; J1940; J7030; P9047